=== PATIENT | female | born 1935 | race Caucasian/White ===

== ENCOUNTER 2016-12-05 07:44 | Day surgery (SDC) | payer MEDICARE, BC ==
[2016-11-30 15:04] VITALS: BMI 31.4
[~2016-12-05 07:44] MED LIST: DEXAMETHASONE SOD PHOSPHATE 10 MG/ML 1 ML VIAL IV ONE; HYDROmorphone 1 MG/ML 1 ML SYRINGE IVP PRN; LACTATED RINGERS 1,000 ML IV SCH; ONDANSETRON 4 MG/2 ML VIAL IVP ONE; ceFAZolin 1,000 MG in DEXTROSE/WATER 1 50ML.BAG IV ONE
[2016-12-05 10:18] VITALS: TEMP 97
[2016-12-05] MEDS ORDERED: PROPOFOL 10 MG/ML 20 ML VIAL IV ONE (10:35)
[2016-12-05] MEDS ORDERED: LIDOCAINE 1%/EPI 1:200,000 MPF 10 ML VIAL SQ ONE ×2 (11:06)
[2016-12-05 11:17] LABS: INR 2.1 (<1.2); Prothrombin Time 20.2 sec (9.0-12.0)
[2016-12-05] MEDS ORDERED: BACITRACIN 500 UNIT/GM OINT 28.4 GM TUBE TOPICAL ONE (11:38)
--- NOTE | 2016-12-05 12:06 | P.OP ---
Date of Procedure: 12/05/16 Preoperative Diagnosis: Right hinduism skin lesion Postoperative Diagnosis: Same Procedure(s) Performed: Excision right temporal skin lesion-4.2 x 3.5 cm Full-thickness skin graft reconstruction 4.2 x 3.5 cm defect size with complex closure of skin graft donor site Anesthesia: MAC Surgeon: Scar Jimenes Estimated Blood Loss (ml): 5 Pathology: other (Right hinduism skin lesion) Condition: stable Disposition: PACU Indications for Procedure: This is an 80-year-old white female has been enlarging right hinduism skin lesion over the last 7 months. Operative Findings: Large approximately 3.3 cm diameter right temporal skin lesion erythematous raised and firm but mobile from the underlying deep tissues Description of Procedure: The patient was brought in the operative suite and placed in a supine position. The patient underwent induction of IV sedation after appropriate monitors were placed by the cocoa milling machine operator. The patient was prepped and draped in usual aseptic fashion including right lower neck for potential graft. 2% lidocaine with 1-100,000 epinephrine was infused cutaneously and field block fashion at the right temporal and right lower neck sites. The skin lesion from the right hinduism was then excised grossly entirely down to the subcutaneous fat layer. Care was taken not to approach the depth of the facial nerve which was avoided. The lesion was excised grossly entirely. Hemostasis gained with electrocautery. Edges of the wound undermined with good hemostasis noted. A skin graft was then harvested from the right supraclavicular area down to the subcutaneous fat. The graft was defatted and cut to the appropriate shape and size of the defect. The donor site was closed in the deep and superficial subcutaneous layers with inverted interrupted 4-0 Vicryl suture and skin closed with running locking 4-0 Vicryl suture after wide undermining. Good hemostasis was noted. Bacitracin and sterile dressing were placed. Graft was then sutured circumferentially with simple interrupted 5-0 Vicryl sutures left long and a bolster consisting of Adaptic covering cottonball impregnated with bacitracin ointment was then tied down over the graft. The patient was then allowed to emerge from anesthesia having tolerated procedure well and was transferred to postop recovery area in satisfactory condition.
[2016-12-05 13:14] VITALS: RESP 20
[2016-12-05 13:51] VITALS: BP 129/72; PULSE 69
== END 2016-12-05 14:35 | disposition home or self-care (01) ==
LOC: OR 07:44
PROVIDERS: ATTEND Otolaryngology
DX: C44.329 Squamous cell carcinoma of skin of other parts of face (principal); L57.8 Other skin changes due to chronic exposure to nonionizing radiation; I13.10 Hypertensive heart and chronic kidney disease without heart failure, with stage 1 through stage 4 chronic kidney disease, or unspecified chronic kidney disease; N18.9 Chronic kidney disease, unspecified; M19.90 Unspecified osteoarthritis, unspecified site; H26.9 Unspecified cataract; H40.9 Unspecified glaucoma; M10.9 Gout, unspecified; E03.9 Hypothyroidism, unspecified; I25.10 Atherosclerotic heart disease of native coronary artery without angina pectoris; I49.9 Cardiac arrhythmia, unspecified; F03.90 Unspecified dementia, unspecified severity, without behavioral disturbance, psychotic disturbance, mood disturbance, and anxiety; Z86.73 Personal history of transient ischemic attack (TIA), and cerebral infarction without residual deficits; Z98.51 Tubal ligation status; Z79.01 Long term (current) use of anticoagulants; Z79.899 Other long term (current) drug therapy; Z88.1 Allergy status to other antibiotic agents; Z88.2 Allergy status to sulfonamides; Z91.09 Other allergy status, other than to drugs and biological substances; Z88.8 Allergy status to other drugs, medicaments and biological substances; Z87.891 Personal history of nicotine dependence
CPT/HCPCS: 88305; 85610; 11646; 15240; J1100; J2405; J0690; J2704

== ENCOUNTER 2018-02-08 12:15 | Inpatient (IN) | payer MEDICARE, BC ==
[2018-02-08] MEDS ORDERED: SODIUM CHLORIDE 0.9% 1,000 ML IV STA (12:37)
[2018-02-08] MEDS ORDERED: SODIUM CHLORIDE 0.9% 500 ML 500 ML IV STA (12:37)
--- NOTE | 2018-02-08 12:44 | ED ---
Neuro HPI - General Chief Complaint: Neuro Symptoms/Deficit Stated Complaint: stroke Time Seen by Provider: 02/08/18 12:25 Source: family, RN notes reviewed Mode of arrival: wheelchair Limitations: no limitations - History of Present Illness Is the patient presenting with stroke symptoms?: Yes Last Known Well Date: 02/06/18 Initial Comments: This is a 82-year-old female history of CVA in 2006 who apparently had the onset night which is 2 nights ago of left-sided paralysis just gotten somewhat better per family since that time she had decreased urine output however she does not like going to physicians refused medical care until she was brought in today by family. No reports of any trauma fevers chills nausea vomiting sweats or other symptoms. She does have transient aphasia which is chronic since last stroke. No other modifying factors. Formation was from family members - Related Data Home Medications: Home Medications Medication Instructions Recorded Confirmed Allopurinol [Zyloprim] 300 mg PO DAILY 01/26/14 02/08/18 Levothyroxine Sodium [Synthroid] 100 mcg PO DAILY 01/26/14 02/08/18 Atenolol [Tenormin] 50 mg PO HS 11/30/16 02/08/18 Cholecalciferol (Vitamin D3) 2,000 unit PO DAILY 11/30/16 02/08/18 [Vitamin D3] QUEtiapine [SEROquel] 100 mg PO 2100 11/30/16 02/08/18 Warfarin [Coumadin] 1 mg PO Q48H 11/30/16 02/08/18 Warfarin [Coumadin] 2 mg PO Q48H 11/30/16 02/08/18 Allergies/Adverse Reactions: Allergies Allergy/AdvReac Type Severity Reaction Status Date / Time Sulfa (Sulfonamide Allergy Unknown Verified 02/08/18 12:57 Antibiotics) Review of Systems ROS Statement: Those systems with pertinent positive or pertinent negative responses have been documented in the HPI. ROS Other: All systems not noted in ROS Statement are negative. General Exam - General Exam Comments Initial Comments: Is a well-developed well-nourished lethargic female who does seem to follow some commands Limitations: no limitations General appearance: lethargic Head exam: Present: atraumatic, normocephalic, normal inspection Eye exam: Present: normal appearance, PERRL, EOMI. Absent: scleral icterus, conjunctival injection, periorbital swelling ENT exam: Present: mucous membranes dry Neck exam: Present: normal inspection. Absent: tenderness, meningismus, lymphadenopathy Respiratory exam: Present: normal lung sounds bilaterally. Absent: respiratory distress, wheezes, rales, rhonchi, stridor Cardiovascular Exam: Present: regular rate, normal rhythm, normal heart sounds. Absent: systolic murmur, diastolic murmur, rubs, gallop, clicks GI/Abdominal exam: Present: soft, normal bowel sounds. Absent: distended, tenderness, guarding, rebound, rigid Extremities exam: Present: normal inspection, full ROM, normal capillary refill. Absent: tenderness, pedal edema, joint swelling, calf tenderness Back exam: Present: normal inspection Neurological exam: Present: alert, altered, CN II-XII intact, motor sensory deficit (Left upper lower extremity phill- plegia) Psychiatric exam: Present: normal affect, normal mood Skin exam: Present: warm, dry, intact, normal color. Absent: rash Stroke MDM - Lab Data Result diagrams: 02/08/18 12:33 02/08/18 12:33 Lab Results 02/08/18 02/08/18 02/08/18 Range/Units 12:33 12:33 12:33 WBC 15.3 H (3.8-10.6) k/uL RBC 4.57 (3.80-5.40) m/uL Hgb 14.6 (11.4-16.0) gm/dL Hct 43.9 (34.0-46.0) % MCV 96.2 (80.0-100.0) fL MCH 32.1 (25.0-35.0) pg MCHC 33.3 (31.0-37.0) g/dL RDW 14.5 (11.5-15.5) % Plt Count 211 (150-450) k/uL Neutrophils % 85 % Lymphocytes % 8 % Monocytes % 5 % Eosinophils % 1 % Basophils % 0 % Neutrophils # 13.0 H (1.3-7.7) k/uL Lymphocytes # 1.3 (1.0-4.8) k/uL Monocytes # 0.8 (0-1.0) k/uL Eosinophils # 0.1 (0-0.7) k/uL Basophils # 0.1 (0-0.2) k/uL PT (9.0-12.0) sec INR (<1.2) APTT (22.0-30.0) sec Sodium 139 (137-145) mmol/L Potassium 5.0 (3.5-5.1) mmol/L Chloride 105 (98-107) mmol/L Carbon Dioxide 21 L (22-30) mmol/L Anion Gap 13 mmol/L BUN 23 H (7-17) mg/dL Creatinine 1.08 H (0.52-1.04) mg/dL Est GFR (CKD-EPI)AfAm 55 (>60 ml/min/1.73 sqM) Est GFR (CKD-EPI)NonAf 47 (>60 ml/min/1.73 sqM) Glucose 192 H (74-99) mg/dL Calcium 10.0 (8.4-10.2) mg/dL Total Bilirubin 3.2 H (0.2-1.3) mg/dL AST 53 H (14-36) U/L ALT 31 (9-52) U/L Alkaline Phosphatase 114 (38-126) U/L Total Creatine Kinase 654 H (30-135) U/L CK-MB (CK-2) 4.4 H (0.0-2.4) ng/mL CK-MB (CK-2) Rel Index 0.7 Troponin I 0.037 H* (0.000-0.034) ng/mL Total Protein 8.0 (6.3-8.2) g/dL Albumin 4.0 (3.5-5.0) g/dL 02/08/18 Range/Units 12:33 WBC (3.8-10.6) k/uL RBC (3.80-5.40) m/uL Hgb (11.4-16.0) gm/dL Hct (34.0-46.0) % MCV (80.0-100.0) fL MCH (25.0-35.0) pg MCHC (31.0-37.0) g/dL RDW (11.5-15.5) % Plt Count (150-450) k/uL Neutrophils % % Lymphocytes % % Monocytes % % Eosinophils % % Basophils % % Neutrophils # (1.3-7.7) k/uL Lymphocytes # (1.0-4.8) k/uL Monocytes # (0-1.0) k/uL Eosinophils # (0-0.7) k/uL Basophils # (0-0.2) k/uL PT 18.2 H (9.0-12.0) sec INR 2.0 H (<1.2) APTT 29.3 (22.0-30.0) sec Sodium (137-145) mmol/L Potassium (3.5-5.1) mmol/L Chloride (98-107) mmol/L Carbon Dioxide (22-30) mmol/L Anion Gap mmol/L BUN (7-17) mg/dL Creatinine (0.52-1.04) mg/dL Est GFR (CKD-EPI)AfAm (>60 ml/min/1.73 sqM) Est GFR (CKD-EPI)NonAf (>60 ml/min/1.73 sqM) Glucose (74-99) mg/dL Calcium (8.4-10.2) mg/dL Total Bilirubin (0.2-1.3) mg/dL AST (14-36) U/L ALT (9-52) U/L Alkaline Phosphatase (38-126) U/L Total Creatine Kinase (30-135) U/L CK-MB (CK-2) (0.0-2.4) ng/mL CK-MB (CK-2) Rel Index Troponin I (0.000-0.034) ng/mL Total Protein (6.3-8.2) g/dL Albumin (3.5-5.0) g/dL - NIH Stroke Scale 1a. Level of Consciousness: (1) not alert, arousable 1b. LOC Questions: (2) answers no questions correctly 1c. LOC Commands: (2) performs no tasks correctly 2. Best Gaze: (0) normal 3. Visual: (0) no visual loss 4. Facial Palsy: (1) minor paralysis 5a. Motor Arm Left: (4) no movement 5b. Motor Arm Right: (0) no drift 6a. Motor Leg Left: (4) no movement 6b. Motor Leg Right: (0) no drift 7. Limb Ataxia: (0) absent 8. Sensory: (0) normal 9. Best Language: (2) severe aphasia 11. Extinction/Inattention: (0) no abnormality - Thrombolytic Inclusion/Exclusion Thrombolytic Exclusion Criteria: Onset of Symptoms Unknown, Symptom Onset > 3 Hours - Medical Decision Making Reevaluation patient reveals no change did discuss findings with family members patient be admitted for evaluation by neurology. - Radiology Data Radiology results: report reviewed, image reviewed (I did review the imaging and report no acute findings.) - EKG Data -: EKG Interpreted by Me (Atrial fibrillation nonspecific ST configuration rate was 88 QRS 86 QT [facility]) Past Medical History Past Medical History: Atrial Fibrillation, Cancer, Chest Pain / Angina, CVA/TIA , Dementia, Eye Disorder, GI Bleed, Hyperlipidemia, Hypertension, Memory Impairment, Osteoarthritis (OA), Thyroid Disorder Additional Past Medical History / Comment(s): hx GI bleeding, vascular dementia , macular degeneration, gout, .head injury 2012, glaucoma, sinus problems, diverticulitis, wheelchair, skin cancer History of Any Multi-Drug Resistant Organisms: None Reported Past Surgical History: Adenoidectomy, Appendectomy, Breast Surgery, Cholecystectomy, Heart Catheterization With Stent, Joint Replacement, Tonsillectomy Additional Past Surgical History / Comment(s): rt cataract,, left total knee arthroplasty, cath with 2 stents , SINUS SX, thyroidectomy, surgery, lower GI bleed 08/2014-fistula, rt hip replacement, Past Anesthesia/Blood Transfusion Reactions: Previous Problems w/ Anesthesia, Motion Sickness Additional Past Anesthesia/Blood Transfusion Reaction / Comment(s): gets very aggitated, rage, angry-needed straight jackert per son, in past with anesthesia. was confused for long time after Date of Last Stent Placement:: unknown Past Psychological History: Depression Smoking Status: Never smoker - Past Family History Mother Family Medical History: Coronary Artery Disease (CAD) Additional Family Medical History / Comment(s): LIFELONG SMOKER Father Family Medical History: COPD, Coronary Artery Disease (CAD), Liver Disease Additional Family Medical History / Comment(s): LIFELONG SMOKER LIVED TO AGE 84 Sister(s) Family Medical History: Cancer Son(s) Family Medical History: No Reported History Daughter(s) Family Medical History: No Reported History Course Vital Signs 02/08/18 12:16 Temperature 98.1 F Pulse Rate 89 Respiratory 18 Rate Blood Pressure 186/135 O2 Sat by Pulse 94 L Oximetry - Reevaluation(s) Reevaluation #1: 02/08/18 14:10 Reevaluation the patient after return from CAT scan shows no change in her status. Disposition Clinical Impression: Cerebrovascular accident, Dehydration, Acute alteration in mental status, Hyperbilirubinemia, Elevated troponin Disposition: ADMITTED IP TO THIS HOSP Condition: Stable Referrals: Mikey Ferreira DO [Primary Care Provider] - 1-2 days
[2018-02-08 13:08] LABS: Basophils # (A) 0.1 k/uL (0-0.2); Basophils % (A) 0 %; Eosinophils # (A) 0.1 k/uL (0-0.7); Eosinophils % (A) 1 %; HCT 43.9 % (34.0-46.0); HGB 14.6 gm/dL (11.4-16.0); Lymphocytes # (A) 1.3 k/uL (1.0-4.8); Lymphocytes % (A) 8 %; MCH 32.1 pg (25.0-35.0); MCHC 33.3 g/dL (31.0-37.0); MCV 96.2 fL (80.0-100.0); Mean Platelet Volume 7.9; Monocytes # (A) 0.8 k/uL (0-1.0); Monocytes % (A) 5 %; Neutrophils % (A) 85 %; Platelet Count 211 k/uL (150-450); RBC 4.57 m/uL (3.80-5.40); RDW 14.5 % (11.5-15.5); WBC 15.3 k/uL (3.8-10.6)
[2018-02-08 13:18] LABS: Total Bilirubin 3.2 mg/dL (0.2-1.3)
--- NOTE | 2018-02-08 13:28 | CT ---
EXAMINATION TYPE: CT brain wo con DATE OF EXAM: 02/08/2018 COMPARISON: Previous study dated 03/03/2015. HISTORY: Stroke CT DLP: 1375.4 mGycm Automated exposure control for dose reduction was used. FINDINGS: There are generalized changes of sulcal prominence and ventriculomegaly, compatible with atrophic alina nge. There is diffuse periventricular white matter lucency compatible with small vessel ischemic dougherty ge. There are small lacunar infarcts on the right in the mello radiata and also in the internal caps ule. There is a questionable lacunar infarct in the posterior limb of the internal capsule on the lef t. There is no mass effect, midline shift or intracranial blood. There is mucoperiosteal thickening involving the ethmoidal air cells and sphenoid air cells and also the left frontal sinus. There is an air-fluid level in the left maxillary sinus. The mastoids are ranjan ar. The bony calvarium is intact. IMPRESSION: 1. NO ACUTE INTRACRANIAL ABNORMALITY. 2. MODERATE DEGENERATIVE CHANGE. 3. MULTIPLE LACUNAR INFARCTS. 4. ACUTE ON CHRONIC SINUS MUCOSAL DISEASE.
--- NOTE | 2018-02-08 13:29 | XR ---
EXAMINATION TYPE: XR chest 2V DATE OF EXAM: 02/08/2018 HISTORY: altered mental status. REFERENCE: Previous study dated 03/03/2015. FINDINGS: The heart is enlarged. There is vascular congestion with mild interstitial change. Pleural spaces are clear. IMPRESSION: MILD CHANGES OF CONGESTIVE HEART FAILURE.
[2018-02-08 13:34] LABS: Creatine Kinase MB 4.4 ng/mL (0.0-2.4)
[2018-02-08 13:37] LABS: Troponin I 0.037 ng/mL (0.000-0.034)
[2018-02-08 13:58] LABS: Partial Thromboplastin Time 29.3 sec (22.0-30.0); Prothrombin Time 18.2 sec (9.0-12.0)
[2018-02-08] MEDS ORDERED: ASPIRIN 325 MG TAB PO STA (14:17)
[2018-02-08] MEDS ORDERED: METOPROLOL TARTRATE 5 MG/5 ML VIAL IVP STA (14:29)
[2018-02-08] MEDS ORDERED: ASPIRIN 300 MG SUPP RECTAL STA (14:42)
[2018-02-08 14:43] LABS: Appearance,Urine Clear (Clear); Bacteria,Urine Rare /hpf; Bilirubin,Urine 1+ (Negative); Blood,Urine Moderate (Negative); Color,Urine Yellow; Glucose,Urine (UA) 1+ (Negative); Hyaline Casts,Urine 2 /lpf (0-2); Ketones,Urine 1+ (Negative); Leukocyte Esterase,Urine Negative (Negative); Nitrite,Urine Negative (Negative); Protein,Urine 4+ (Negative); RBC,Urine 15 /hpf (0-5); Specific Gravity,Urine 1.025 (1.001-1.035); Squamous Epithelial Cell,Urine 2 /hpf (0-4); WBC,Urine 3 /hpf (0-5)
[2018-02-08] MEDS: SODIUM CHLORIDE 0.9% 1,000 ML IV SCH (15:22)
[2018-02-08] MEDS ORDERED: WARFARIN 2 MG TAB PO SCH (18:00)
[2018-02-08] MEDS: FAMOTIDINE 20 MG/2 ML VIAL IV SCH (20:34)
[2018-02-08] MEDS: QUEtiapine 100 MG TAB PO SCH (20:34)
[2018-02-08] MEDS: ATENOLOL 50 MG TAB PO SCH (20:34)
[2018-02-09 01:18] LABS: Glucose,Whole Blood 138 mg/dL (75-99)
[2018-02-09] MEDS: SODIUM CHLORIDE 0.9% 1,000 ML IV SCH ×3 (03:09→21:36)
[2018-02-09 06:17] LABS: Glucose,Whole Blood 131 mg/dL (75-99)
[2018-02-09] MEDS: LEVOTHYROXINE 100 MCG TAB PO SCH (06:18)
[2018-02-09 07:24] LABS: INR 2.2 (<1.2); Prothrombin Time 19.8 sec (9.0-12.0)
[2018-02-09] MEDS: ASPIRIN 325 MG TAB PO SCH (08:31)
[2018-02-09] MEDS: ALLOPURINOL 300 MG TAB PO SCH (08:31)
[2018-02-09] MEDS: CHOLECALCIFEROL 1,000 UNIT TAB PO SCH (08:31)
[2018-02-09] MEDS: CLOPIDOGREL 75 MG TAB PO SCH (08:31)
[2018-02-09] MEDS: FAMOTIDINE 20 MG/2 ML VIAL IV SCH ×2 (08:31→21:20)
[2018-02-09 10:31] LABS: Cholesterol 182 mg/dL (<200); HDL Cholesterol 31 mg/dL (40-60); LDL Cholesterol,Calculated 136 mg/dL (0-99); Triglycerides 74 mg/dL (<150)
[2018-02-09 11:45] LABS: Glucose,Whole Blood 147 mg/dL (75-99)
--- NOTE | 2018-02-09 15:44 | P.CNNES ---
History of Present Illness Consult date: 02/09/18 Requesting physician: Moshe Mccray Reason for Consult: CVA History of Present Illness: Patient is an 82-year-old female who is being evaluated by the neurology service on 02/09/2018 per the request of Dr. Mccray for CVA. Patient has history of CVA back in 2006. Patient has history of atrial fibrillation on warfarin in the home setting. Patient is wheelchair bound at home reportedly due to knee etiology. Family reports patient had onset of left-sided paralysis and decreased mentation since which was 2 days prior to coming to [facility]. Patient has significant left-sided facial droop. Patient has chronic transient aphasia which has been since last stroke. CT of the brain shows no acute intracranial abnormality. CT of the brain does show multiple lacunar infarcts. There are small lacunar infarcts on the right in the mello radiata and also in the internal capsule. There is a questionable lacunar infarct in the posterior limb of the internal capsule on the left. Vital signs at admission showed temperature 98.1, pulse 89, respiratory rate 18 , blood pressure 186/135, and oxygen saturation 94% on room air. Labs on admission included INR of 2.0, WBC is 15.3, carbon dioxide 21, BUN 23, creatinine 1.08, glucose 192, AST 53, and total creatinine kinase 654. CK-MB elevated at 4.4 with elevated troponin. UA revealed urinary tract infection. Chest x-ray shows mild changes of congestive heart failure. EKG shows atrial fibrillation with controlled rate of 88. At the time of my evaluation, patient is restless in bed with family at the bedside. Patient does not appear to be in any acute distress. Review of Systems REVIEW OF SYSTEMS: Otherwise unremarkable and noncontributory. Past Medical History Past Medical History: Atrial Fibrillation, Cancer, Chest Pain / Angina, CVA/TIA , Dementia, Eye Disorder, GI Bleed, Hyperlipidemia, Hypertension, Memory Impairment, Osteoarthritis (OA), Thyroid Disorder Additional Past Medical History / Comment(s): hx GI bleeding, vascular dementia , macular degeneration, gout, .head injury 2012, glaucoma, sinus problems, diverticulitis, wheelchair, skin cancer History of Any Multi-Drug Resistant Organisms: None Reported Past Surgical History: Adenoidectomy, Appendectomy, Breast Surgery, Cholecystectomy, Heart Catheterization With Stent, Joint Replacement, Tonsillectomy Additional Past Surgical History / Comment(s): rt cataract,, left total knee arthroplasty, cath with 2 stents , SINUS SX, thyroidectomy, surgery, lower GI bleed 08/2014-fistula, rt hip replacement, Past Anesthesia/Blood Transfusion Reactions: Previous Problems w/ Anesthesia, Motion Sickness Additional Past Anesthesia/Blood Transfusion Reaction / Comment(s): gets very aggitated, rage, angry-needed straight jackert per son, in past with anesthesia. 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 PT RECOGNIZERS HIM. Smoking Status: Never smoker Past Alcohol Use History: None Reported Past Drug Use History: None Reported Additional Drug Use History / Comment(s): Patient parents smoked. Patient still smokes. - Past Family History Mother Family Medical History: Coronary Artery Disease (CAD) Additional Family Medical History / Comment(s): LIFELONG SMOKER Father Family Medical History: COPD, Coronary Artery Disease (CAD), Liver Disease Additional Family Medical History / Comment(s): LIFELONG SMOKER LIVED TO AGE 84 Sister(s) Family Medical History: Cancer Son(s) Family Medical History: No Reported History Daughter(s) Family Medical History: No Reported History Medications and Allergies Home Medications Medication Instructions Recorded Confirmed Type Allopurinol [Zyloprim] 300 mg PO DAILY 01/26/14 02/08/18 History Levothyroxine Sodium [Synthroid] 100 mcg PO DAILY 01/26/14 02/08/18 History Atenolol [Tenormin] 50 mg PO HS 11/30/16 02/08/18 History Cholecalciferol (Vitamin D3) 2,000 unit PO DAILY 11/30/16 02/08/18 History [Vitamin D3] QUEtiapine [SEROquel] 100 mg PO 2100 11/30/16 02/08/18 History Warfarin [Coumadin] 1 mg PO Q48H 11/30/16 02/08/18 History Warfarin [Coumadin] 2 mg PO Q48H 11/30/16 02/08/18 History Allergies Allergy/AdvReac Type Severity Reaction Status Date / Time Sulfa (Sulfonamide Allergy Unknown Verified 02/08/18 12:57 Antibiotics) Physical Examination - Vital Signs Vital Signs: Vital Signs Temp Pulse Pulse Pulse Resp BP BP 02/09/18 15:08 97.5 F L 101 H 18 176/121 02/09/18 11:36 97.2 F L 74 20 160/95 02/09/18 08:00 97.4 F L 90 20 163/102 02/09/18 04:00 97.0 F L 70 18 02/09/18 00:00 97.7 F 74 18 02/08/18 20:00 98 18 02/08/18 19:42 98.6 F 98 02/08/18 18:00 85 20 167/94 02/08/18 17:30 81 21 167/94 02/08/18 17:00 85 23 168/90 02/08/18 16:30 71 18 175/94 02/08/18 16:00 66 17 150/97 02/08/18 15:30 85 20 152/104 BP Pulse Ox 02/09/18 15:08 98 02/09/18 11:36 98 02/09/18 08:00 92 L 02/09/18 04:00 138/87 94 L 02/09/18 00:00 143/85 96 18 20:00 02/08/18 19:42 187/89 93 L 02/08/18 18:00 96 02/08/18 17:30 96 02/08/18 17:00 95 02/08/18 16:30 99 02/08/18 16:00 94 L 02/08/18 15:30 98 Intake and Output 02/09/18 02/09/18 02/09/18 06:59 14:59 22:59 Intake Total 200 Output Total 300 Balance -300 200 Intake: Intake, IV Titration 200 Amount Sodium Chloride 0.9% 1, 200 000 ml @ 100 mls/hr IV . [facility] Rx#:[id number] Output: Urine 300 Other: Voiding Method Indwelling Catheter Indwelling Catheter Weight 84.5 kg PHYSICAL EXAM: GENERAL APPEARANCE: Patient is a well-developed, female who appears to be in no acute distress. HEENT: Normocephalic, atraumatic, left facial asymmetry is seen. Neck is supple with no masses felt. CARDIOVASCULAR: Regular rate and rhythm. ABDOMEN: Nontender, nondistended. EXTREMITIES: Show no edema or clubbing. NEUROLOGICAL EXAM: Patient is awake, alert, but is not following commands. A meaningful neurological exam could not be performed due to patient inability to participate. Patient has purposeful movement of the right upper and lower extremity. Left upper and lower extremity show no purposeful movement. Left upper extremity is flaccid. Patient has significant left-sided facial droop. She remains nothing by mouth at this time. Speech is garbled as patient is dysarthric. Sensory exam could not be performed due to patient inability to comprehend command. No tremors or seizure-like activity noted. Results - Laboratory Findings CBC and BMP: 02/08/18 12:33 02/08/18 12:33 Abnormal Lab Findings: Abnormal Labs 02/08/18 02/08/18 02/08/18 12:33 12:33 12:33 WBC 15.3 H Neutrophils # 13.0 H PT INR Carbon Dioxide 21 L BUN 23 H Creatinine 1.08 H Glucose 192 H POC Glucose (mg/dL) Total Bilirubin 3.2 H AST 53 H Total Creatine Kinase 654 H CK-MB (CK-2) 4.4 H Troponin I 0.037 H* LDL Cholesterol, Calc HDL Cholesterol Urine Protein Urine Glucose (UA) Urine Ketones Urine Blood Urine Bilirubin Urine RBC Urine Bacteria 02/08/18 02/08/18 02/08/18 12:33 13:50 18:54 WBC Neutrophils # PT 18.2 H INR 2.0 H Carbon Dioxide BUN Creatinine Glucose POC Glucose (mg/dL) Total Bilirubin AST Total Creatine Kinase CK-MB (CK-2) Troponin I 0.037 H* LDL Cholesterol, Calc HDL Cholesterol Urine Protein 4+ H Urine Glucose (UA) 1+ H Urine Ketones 1+ H Urine Blood Moderate H Urine Bilirubin 1+ H Urine RBC 15 H Urine Bacteria Rare H 02/09/18 02/09/18 02/09/18 01:15 06:15 06:18 WBC Neutrophils # PT INR Carbon Dioxide BUN Creatinine Glucose POC Glucose (mg/dL) 138 H 131 H Total Bilirubin AST Total Creatine Kinase CK-MB (CK-2) Troponin I LDL Cholesterol, Calc 136 H HDL Cholesterol 31 L Urine Protein Urine Glucose (UA) Urine Ketones Urine Blood Urine Bilirubin Urine RBC Urine Bacteria 02/09/18 02/09/18 06:18 11:42 WBC Neutrophils # PT 19.8 H INR 2.2 H Carbon Dioxide BUN Creatinine Glucose POC Glucose (mg/dL) 147 H Total Bilirubin AST Total Creatine Kinase CK-MB (CK-2) Troponin I LDL Cholesterol, Calc HDL Cholesterol Urine Protein Urine Glucose (UA) Urine Ketones Urine Blood Urine Bilirubin Urine RBC Urine Bacteria Assessment and Plan Plan: Impression: 1. 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 History of CVA in 2006 3. History of atrial fibrillation on warfarin 4. Dementia 5. Hypertension 6. Osteoarthritis 7. Debility Recommendation: It does appear patient had a cerebrovascular accident likely involving right MCA. Patient has significant left hemiparesis with significant left facial droop. Patient has dysphagia. She remains nothing by mouth. I will order an MRI/MRA of the brain, EEG, fasting lipid panel and serum homocysteine level. CT of the brain showed no acute intracranial abnormality but did show multiple lacunar infarcts. I recommend a cardiology consult due to multiple lacunar infarcts seen on brain CT, history of atrial fibrillation as well as elevated troponin. Patient's INR was therapeutic at 2.0 on admission. It is not clear what INR was at the onset of these symptoms as this happened days ago. I recommend continuing anticoagulation unless cardiology plans any intervention such as EDI. I recommend adjustment of medication for elevated blood pressure. I recommend physical therapy, speech therapy and occupational therapy to evaluate and treat. Continue neurological checks. I will continue to follow with you. Further recommendations to follow. Thank you for allowing me to participate in the care of your patient. Feel free to call with any questions or concerns. I performed an examination of the patient and discussed the management with the AIRPORT REPRESENTATIVE. I have reviewed the AIRPORT REPRESENTATIVE notes and agree with the findings and plan of care.
[2018-02-09 16:56] LABS: Glucose,Whole Blood 126 mg/dL (75-99)
[2018-02-09] MEDS ORDERED: WARFARIN 1 MG TAB PO SCH (18:00)
[2018-02-09 20:33] LABS: Glucose,Whole Blood 134 mg/dL (75-99)
[2018-02-09] MEDS ORDERED: ALPRAZolam 1 MG TAB PO STA (21:13)
[2018-02-09] MEDS: QUEtiapine 100 MG TAB PO SCH (21:19)
[2018-02-09] MEDS: METOPROLOL TARTRATE 5 MG/5 ML VIAL IVP PRN (21:20)
--- NOTE | 2018-02-09 22:21 | P.HPIM ---
History of Present Illness H&P Date: 02/09/18 Chief Complaint: Left-sided weakness with altered mental status This is a 52 years old female with past medical history significant for stroke in 2017 presents to the emergency department with new onset weakness and left- sided paralysis. Patient is nonverbal and had historian as her son who lives at home with her along with her . Son reported that his mother started having worsening weakness on evening and Saturday morning she developed left sided paralysis but the son attributed that the paralysis due to recent 2 doses of Zithromax as he studied side effects for Zithromax over the Internet and found out that it can cause stroke similar symptoms and decided to keep his mother at home on Saturday patient continued to decline and he decided to bring her into the hospital but she was difficult to handle as he did not call EMS and decided to bring her to the hospital and his own car in the emergency patient was nonverbal and does not follow command have left-sided weakness with left facial droop and was out of window for TPA given the late onset of symptoms. Patient in the emergency department received CT scan of the head which showed multiple lacunar infarcts admitted to the floor with therapeutic INR and received appropriate therapy Review of Systems All 14 systems were unable to review with the patient's except for information above from the primary caregiver Past Medical History Past Medical History: Atrial Fibrillation, Cancer, Chest Pain / Angina, CVA/TIA , Dementia, Eye Disorder, GI Bleed, Hyperlipidemia, Hypertension, Memory Impairment, Osteoarthritis (OA), Thyroid Disorder Additional Past Medical History / Comment(s): hx GI bleeding, vascular dementia , macular degeneration, gout, .head injury 2012, glaucoma, sinus problems, diverticulitis, wheelchair, skin cancer History of Any Multi-Drug Resistant Organisms: None Reported Past Surgical History: Adenoidectomy, Appendectomy, Breast Surgery, Cholecystectomy, Heart Catheterization With Stent, Joint Replacement, Tonsillectomy Additional Past Surgical History / Comment(s): rt cataract,, left total knee arthroplasty, cath with 2 stents , SINUS SX, thyroidectomy, surgery, lower GI bleed 08/2014-fistula, rt hip replacement, Past Anesthesia/Blood Transfusion Reactions: Previous Problems w/ Anesthesia, Motion Sickness Additional Past Anesthesia/Blood Transfusion Reaction / Comment(s): gets very aggitated, rage, angry-needed straight jackert per son, in past with anesthesia. 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 PT RECOGNIZERS HIM. Smoking Status: Never smoker Past Alcohol Use History: None Reported Past Drug Use History: None Reported Additional Drug Use History / Comment(s): Patient parents smoked. Patient still smokes. - Past Family History Mother Family Medical History: Coronary Artery Disease (CAD) Additional Family Medical History / Comment(s): [employer] Father Family Medical History: COPD, Coronary Artery Disease (CAD), Liver Disease Additional Family Medical History / Comment(s): [employer] S[employer] LIVED TO AGE 84 Sister(s) Family Medical History: Cancer Son(s) Family Medical History: No Reported History Daughter(s) Family Medical History: No Reported History Medications and Allergies Home Medications Medication Instructions Recorded Confirmed Type Allopurinol [Zyloprim] 300 mg PO DAILY 01/26/14 02/08/18 History Levothyroxine Sodium [Synthroid] 100 mcg PO DAILY 01/26/14 02/08/18 History Atenolol [Tenormin] 50 mg PO HS 11/30/16 02/08/18 History Cholecalciferol (Vitamin D3) 2,000 unit PO DAILY 11/30/16 02/08/18 History [Vitamin D3] QUEtiapine [SEROquel] 100 mg PO 2100 11/30/16 02/08/18 History Warfarin [Coumadin] 1 mg PO Q48H 11/30/16 02/08/18 History Warfarin [Coumadin] 2 mg PO Q48H 11/30/16 02/08/18 History Allergies Allergy/AdvReac Type Severity Reaction Status Date / Time Sulfa (Sulfonamide Allergy Unknown Verified 02/08/18 12:57 Antibiotics) Physical Exam Vitals: Vital Signs Temp Pulse Resp BP BP Pulse Ox 02/09/18 20:00 98.1 F 98 19 192/108 94 L 02/09/18 15:08 97.5 F L 101 H 18 176/121 98 02/09/18 11:36 97.2 F L 74 20 160/95 98 02/09/18 08:00 97.4 F L 90 20 163/102 92 L 02/09/18 04:00 97.0 F L 70 18 138/87 94 L 02/09/18 00:00 97.7 F 74 18 143/85 96 Intake and Output 02/09/18 02/09/18 02/09/18 06:59 14:59 22:59 Intake Total 200 800 Output Total 300 220 Balance -300 200 580 Intake: Intake, IV Titration 200 800 Amount Sodium Chloride 0.9% 1, 200 800 000 ml @ 100 mls/hr IV . Q10H [facility] Rx#:[id number] Output: Urine 300 220 Other: Voiding Method Indwelling Catheter Indwelling Catheter Indwelling Catheter # Bowel Movements 0 Weight 84.5 kg HEENT atraumatic normocephalic PERRLA Neck supple no masses or thyromegaly Heart irregularly irregular normal S1 and S2 Lungs clear to auscultation bilaterally Abdomen soft no tenderness plus. Snow for quadrant Skin no new rash Neuro/psych patient is awake but does not follow commands mumbling warts moving lower extremity spontaneously positive for left upper extremity paralysis positive for significant left facial droop Results CBC & Chem 7: 02/08/18 12:33 02/08/18 12:33 Labs: Abnormal Lab Results - Last 24 Hours (Table) 02/09/18 02/09/18 02/09/18 Range/Units 01:15 06:15 06:18 PT (9.0-12.0) sec INR (<1.2) POC Glucose (mg/dL) 138 H 131 H (75-99) mg/dL LDL Cholesterol, Calc 136 H (0-99) mg/dL HDL Cholesterol 31 L (40-60) mg/dL 02/09/18 02/09/18 02/09/18 Range/Units 06:18 11:42 16:53 PT 19.8 H (9.0-12.0) sec INR 2.2 H (<1.2) POC Glucose (mg/dL) 147 H 126 H (75-99) mg/dL LDL Cholesterol, Calc (0-99) mg/dL HDL Cholesterol (40-60) mg/dL 02/09/18 Range/Units 20:31 PT (9.0-12.0) sec INR (<1.2) POC Glucose (mg/dL) 134 H (75-99) mg/dL LDL Cholesterol, Calc (0-99) mg/dL HDL Cholesterol (40-60) mg/dL Microbiology - Last 24 Hours (Table) 02/08/18 13:50 Urine Culture - Final Urine,Catheterized Thrombosis Risk Factor Assmnt - Choose All That Apply Each Factor Represents 1 point: Obesity (BMI >25) Each Risk Factor Represents 3 Points: Age 75 years or older Other congenital or acquired thrombophilia - If yes, enter type in comment: No Thrombosis Risk Factor Assessment Total Risk Factor Score: 4 Thrombosis Risk Factor Assessment Level: Moderate Risk Assessment and Plan Assessment: 1. Acute CVA likely in the MCA distribution with left sided weakness/paralysis left upper extremity worse than left lower extremity with significant facial droop. 2. Atrial fibrillation heart rate is controlled INR is therapeutic. 3. Hypertension. 4. Debility and deconditioning. 5. Dysphagia with increased risk of aspiration. 6. Hyperlipidemia. 7. History of dementia. Plan discussed with her son who still believe that his mother had side effects from Zithromax and stated that she used to be on Coumadin and advised to be on aspirin but he did not believe in aspirin and was not taking aspirin as her son instructed her to avoid it explained to the son at length that current stroke need treatment is more seriously and he needs to follow up with physicians recommendation regarding medication and close follow-up with her primary care physician outpatient. Meanwhile patient may benefit from 2-D echo with normal study and possibility for EDI in the future as patient had multiple lacunar stroke in the past. We'll continue with Coumadin and titrate for INR between 2 and 3 we will continue with aspirin and statin. We'll check on lipid panel hemoglobin A1c and TSH. We'll consult physical and echo patient with therapy and consider consulting physical medicine and rehabilitation based on the recommendation. Prognosis is guarded
[2018-02-09] MEDS: ATENOLOL 50 MG TAB PO SCH (22:47)
[2018-02-10 05:59] LABS: Glucose,Whole Blood 132 mg/dL (75-99)
[2018-02-10 06:42] LABS: INR 2.5 (<1.2); Prothrombin Time 22.1 sec (9.0-12.0)
[2018-02-10] MEDS: ASPIRIN 325 MG TAB PO SCH (09:33)
[2018-02-10] MEDS: ALLOPURINOL 300 MG TAB PO SCH (09:33)
[2018-02-10] MEDS: CLOPIDOGREL 75 MG TAB PO SCH (09:33)
[2018-02-10] MEDS: LEVOTHYROXINE 100 MCG TAB PO SCH (09:33)
[2018-02-10] MEDS: CHOLECALCIFEROL 1,000 UNIT TAB PO SCH (09:33)
[2018-02-10] MEDS: FAMOTIDINE 20 MG/2 ML VIAL IV SCH (09:47)
[2018-02-10] MEDS: METOPROLOL TARTRATE 5 MG/5 ML VIAL IVP PRN ×2 (09:47→16:48)
[2018-02-10] MEDS: SODIUM CHLORIDE 0.9% 1,000 ML IV SCH ×2 (09:47→16:43)
[2018-02-10 11:12] LABS: Glucose,Whole Blood 167 mg/dL (75-99)
[2018-02-10] MEDS ORDERED: diphenhydrAMINE 50 MG/ML 1 ML VIAL IVP PRN (12:43)
[2018-02-10] MEDS ORDERED: LISINOPRIL 10 MG TAB PO SCH (12:45)
[2018-02-10 12:57] LABS: Hemoglobin A1C 7.3 % (4.0-6.0)
[2018-02-10] MEDS ORDERED: ASPIRIN 300 MG SUPP RECTAL SCH (13:30)
--- NOTE | 2018-02-10 15:19 | P.PN ---
Subjective Progress Note Date: 02/10/18 This is a 52 years old female with past medical history significant for stroke in 2017 presents to the emergency department with new onset weakness and left- sided paralysis. Patient is nonverbal and had historian as her son who lives at home with her along with her . Son reported that his mother started having worsening weakness on evening and Saturday morning she developed left sided paralysis but the son attributed that the paralysis due to recent 2 doses of Zithromax as he studied side effects for Zithromax over the Internet and found out that it can cause stroke similar symptoms and decided to keep his mother at home on Saturday patient continued to decline and he decided to bring her into the hospital but she was difficult to handle as he did not call EMS and decided to bring her to the hospital and his own car in the emergency patient was nonverbal and does not follow command have left-sided weakness with left facial droop and was out of window for TPA given the late onset of symptoms. Patient in the emergency department received CT scan of the head which showed multiple lacunar infarcts admitted to the floor with therapeutic INR and received appropriate therapy 02/10: Patient is aphasic from previous stroke. Small amount of movement to left leg but no movement of left arm. Neurology has recommended MRA/MRI and EEG. Patient was not able to be still for MRI. Son has refused ativan and xanax as she gets the opposite effect desired. EDI requested. Cardiology is on consult. Jalloh in place. Patient needs swallow eval by speech. She did cough with spoon of water. She is usually wheelchair bound and can stand to pivot. We will add and IV Benadryl to help with sleep this evening. A1c is pending. Family states the patient is a DO NOT RESUSCITATE. Review Of Systems: unable to obtain due to mental status changes. Objective - Vital Signs Vital signs: Vital Signs Temp 97 F L 02/10/18 08:00 Pulse 93 02/10/18 08:00 Resp 18 02/10/18 08:00 BP 183/110 02/10/18 08:00 Pulse Ox 98 02/10/18 08:00 Intake & Output 02/09/18 02/10/18 02/10/18 18:59 06:59 18:59 Intake Total 1000 700 Output Total 220 525 Balance 780 175 Weight 84.3 kg Intake: Intake, IV Titration 1000 700 Amount Sodium Chloride 0.9% 1, 1000 700 000 ml @ 100 mls/hr IV . Q10H [facility] Rx#:[id number] Output: Urine 220 525 Other: Voiding Method Indwelling Catheter Indwelling Catheter Indwelling Catheter # Bowel Movements 0 0 - Exam General appearance: average body habitus, no acute distress - EENT Eyes: Reports EOMI, Reports PERRLA, Reports normal apperance, Denies photophobia , Denies scleral icterus ENT: Reports NA/AT, Reports normal oropharynx, Denies thrush, Denies tonsillar exudates Ears: bilateral: normal - Neck Neck: Reports normal ROM, Denies lymphadenopathy, Denies rigidity, Denies stridor, Denies thyromegaly Carotids: bilateral: upstroke delayed Thyroid: bilateral: normal size - Respiratory Respiratory: bilateral: diminished, negative: dullness, rales, rhonchi, wheezing , prolonged expiration, prolonged inspiration - Cardiovascular Rhythm: regularly irregular Heart sounds: normal: S1, S2 Abnormal Heart Sounds: Reports systolic murmur (3/6 in the right upper sternal border radiating to the base of the neck.), Denies rub, Denies click - Gastrointestinal General gastrointestinal: Reports decreased bowel sounds, Reports soft, Denies splenomegaly, Denies tenderness, Denies umbilical hernia, Denies ventral hernia - Integumentary Integumentary: Reports normal, Reports normal turgor, Denies rash, Denies ulcer - Neurologic Neurologic: CNII-XII intact - Musculoskeletal Musculoskeletal: Reports gait normal, Reports generalized weakness - Psychiatric Psychiatric: Denies A&O Denies appropriate affect, Denies intact judgment & insight, left arm weakness 0/5, left leg weakness, left facial droop. - Labs CBC & Chem 7: 02/08/18 12:33 02/08/18 12:33 Labs: Abnormal Lab Results - Last 24 Hours (Table) 02/09/18 02/09/18 02/09/18 Range/Units 11:42 16:53 20:31 PT (9.0-12.0) sec INR (<1.2) POC Glucose (mg/dL) 147 H 126 H 134 H (75-99) mg/dL 02/10/18 02/10/18 02/10/18 Range/Units 05:58 06:03 11:04 PT 22.1 H (9.0-12.0) sec INR 2.5 H (<1.2) POC Glucose (mg/dL) 132 H 167 H (75-99) mg/dL Microbiology - Last 24 Hours (Table) 02/08/18 13:50 Urine Culture - Final Urine,Catheterized Assessment and Plan Plan: 1. 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 Neurology consult is appreciated. MRA and MRI to be done as well as EEG. Cardiology consult for EDI. Son requested Ativan, Xanax and Haldol not be used. PT, OT and speech therapy. Patient requires modified barium swallow. Aspirin 300 mg rectally daily. 2. Chronic atrial fibrillation on chronic Coumadin. Continue Lopressor is IV at this point until patient is able to swallow. INR is 2.5. 3. History of CAD status post PCI back in 1982, continue aspirin per rectum, IV Lopressor. 4. Hypertension and hypertensive cardiovascular disease. Continue IV Lopressor. 5. History of CVA in 2010. Patient is maintained on Coumadin. 6. Gout, chronic. 7. Vascular dementia. 8. Severe aortic valve stenosis with severe pulmonary hypertension. 9. Hypothyroidism. Synthroid 100 g orally once every day is on hold. 10. GI prophylaxis. Protonix 40 mg IV daily. 11. DVT prophylaxis. Bilateral knee-high AFIA hoses. CODE STATUS: No code Discharge plan: Subacute rehab Impression and plan of care have been directed as dictated by the signing physician. Deanna Kauffman nurse practitioner acting as scribe for signing physician.
[2018-02-10 16:04] LABS: Glucose,Whole Blood 177 mg/dL (75-99)
[2018-02-10] MEDS ORDERED: diphenhydrAMINE 50 MG/ML 1 ML VIAL IVP STA (16:11)
--- NOTE | 2018-02-10 16:35 | CONS ---
CONSULTATION Mrs. Coates is an 82-year-old female who is seen for cardiac evaluation. Patient's medical record is reviewed. The history was obtained mostly from the patient's chart as well as from her . This patient has a prior history of CVA back in 2006 and she also has a history of chronic atrial fibrillation. Patient usually is wheelchair- bound due to her knee problem. She had an episode of left-sided weakness with decreased mentation since , which was actually 2 days prior to coming to the hospital. CT of the brain did not show any new abnormality. There were multiple small lacunar infarcts and white matter changes. There was no evidence of cortical ischemic infarct. Patient has a history of chronic atrial fibrillation and has been treated with anticoagulation. Patient has a history of aortic stenosis. PAST MEDICAL HISTORY: Past medical history includes: 1. History of dementia. 2. History of hyperlipidemia. 3. Hypertension. 4. Osteoarthritis. 5. Thyroid disorder. 6. Macular degeneration. SOCIAL HISTORY: 1. Appendicectomy. 2. Breast surgery. 3. Cholecystectomy. 4. Prior history of catheterization. 5. Joint replacement. 6. Tonsillectomy. HOME MEDICATIONS: The patient's home medications include: 1. Allopurinol 300 mg daily. 2. Synthroid. 3. Tenormin 50 mg daily. 4. Seroquel 100 mg b.i.d. 5. Patient had been on Coumadin. PHYSICAL EXAMINATION: Physical examination at present reveals an 82-year-old female who is confused. She is awake, but she is not following any commands. Patient's heart rate is 70 per minute, blood pressure 130/80 mmHg. Head and ENT examination is negative. Neck is supple. There is no increase in jugular venous pressure. Both the carotid pulses are felt. There is no bruit. Chest is symmetrical. HEART: The PMI is not felt. First and second heart sounds are heard. There is a grade 2/6 ejection systolic murmur noted. Lungs are clinically clear to auscultation and percussion. Abdomen is soft. Liver and spleen are not enlarged. EXTREMITIES: Peripheral pulsations are 2+. EKG shows evidence of atrial fibrillation with a controlled rate. Patient's electrolytes are normal. INR is 2.5. FINAL IMPRESSION: This patient has presented with what appears to be acute left-sided stroke, cortical in origin. The CT scan does not show any new cortical infarct. There are multiple small lacunar infarcts which are secondary to small-vessel disease. The patient has been on chronic Coumadin for her atrial fibrillation. RECOMMENDATIONS: We will await the results of MRI to rule out a new infarct. We will recommend discontinuing the warfarin and consider starting the patient on Eliquis. In view of patient having already been on anticoagulation, EDI would not change in the patient's management, and the patient has evidence so far of only lacunar infarcts secondary to small-vessel disease. At present I will continue aspirin and Plavix until we restart the Eliquis. MMODL / IJN: [id number] /
--- NOTE | 2018-02-10 17:18 | EEG ---
ELECTROENCEPHALOGRAM REPORT DATE OF SERVICE: 02/10/2018. REASON FOR TESTING: Stroke. DESCRIPTION OF THE PROCEDURE: This EEG was performed using a 21 channel digital electroencephalograph, following international 10-20 system. DESCRIPTION OF THE RECORDING: From the beginning of the tracing, with patient's eyes closed, the background rhythm was mostly consisting of 6-7 Hz theta frequency in the posterior occipital leads. Frequent muscle artifacts are noticed, more frequently on the right side compared to the left. Photic stimulation and hyperventilation were not performed. Rare sharp wave activity is seen on the right frontal temporal region. Hyperventilation was not performed. The patient remains awake throughout the tracing. No generalized epileptiform discharges were seen. Her EKG lead showed an irregularly irregular rhythm with a normal rate. INTERPRETATION: This awake EEG is abnormal due to the presence of generalized slowing of the background rhythm, mostly in the theta range. This is consistent with mild encephalopathy. Rare sharp wave activity was also seen, which could be consistent with a reduced seizure threshold. Of note, her EKG lead showed an irregularly irregular rhythm with a normal rate. Clinical correlation is recommended. MMODL / IJN: [id number] /
[2018-02-10] MEDS: LEVOTHYROXINE IVP 100 MCG/5 ML VIAL IV SCH (17:42)
[2018-02-10] MEDS ORDERED: WARFARIN 1 MG TAB PO SCH (18:00)
[2018-02-10] MEDS: ATENOLOL 50 MG TAB PO SCH (19:38)
[2018-02-10] MEDS: QUEtiapine 100 MG TAB PO SCH (19:38)
[2018-02-10 21:43] LABS: Glucose,Whole Blood 135 mg/dL (75-99)
[2018-02-11] MEDS: SODIUM CHLORIDE 0.9% 1,000 ML IV SCH ×3 (02:40→23:22)
[2018-02-11 06:37] LABS: HCT 35.4 % (34.0-46.0); Hypochromasia Slight; MCH 31.3 pg (25.0-35.0); MCHC 32.4 g/dL (31.0-37.0); MCV 96.3 fL (80.0-100.0); Mean Platelet Volume 7.5; Platelet Count 203 k/uL (150-450); RBC 3.67 m/uL (3.80-5.40); RDW 14.6 % (11.5-15.5)
[2018-02-11 06:50] LABS: Glucose,Whole Blood 111 mg/dL (75-99)
[2018-02-11 06:56] LABS: Calcium 9.4 mg/dL (8.4-10.2); Potassium 3.7 mmol/L (3.5-5.1)
[2018-02-11 06:57] LABS: HGB 11.5 gm/dL (11.4-16.0)
[2018-02-11] MEDS ORDERED: ASPIRIN 300 MG SUPP RECTAL SCH (09:00)
[2018-02-11 11:27] LABS: Glucose,Whole Blood 119 mg/dL (75-99)
[2018-02-11] MEDS ORDERED: cloNIDine 0.1 MG/24HR PATCH TRANSDERM SCH (12:15)
[2018-02-11] MEDS: CHOLECALCIFEROL 1,000 UNIT TAB PO SCH (12:21)
[2018-02-11] MEDS: ALLOPURINOL 300 MG TAB PO SCH (12:21)
[2018-02-11] MEDS: ASPIRIN 81 MG PO SCH (12:21)
[2018-02-11] MEDS: CLOPIDOGREL 75 MG TAB PO SCH (12:22)
[2018-02-11] MEDS: HEPARIN SODIUM,PORCINE 5,000 UNIT/ML 1 ML VIAL SQ SCH ×3 (12:36→23:26)
[2018-02-11] MEDS: FAMOTIDINE 20 MG/2 ML VIAL IV SCH (12:36)
[2018-02-11] MEDS: NITROGLYCERIN 0.1MG/HR PATCH TRANSDERM SCH (13:26)
[2018-02-11] MEDS ORDERED: PHYTONADIONE 10 MG in SODIUM CHLORIDE 0.9% 50 ML IVPB STA (13:29)
[2018-02-11] MEDS: ASPIRIN 300 MG SUPP RECTAL SCH (14:17)
--- NOTE | 2018-02-11 15:12 | P.PN ---
Subjective Progress Note Date: 02/11/18 This is a 52 years old female with past medical history significant for stroke in 2017 presents to the emergency department with new onset weakness and left- sided paralysis. Patient is nonverbal and had historian as her son who lives at home with her along with her . Son reported that his mother started having worsening weakness on evening and Saturday morning she developed left sided paralysis but the son attributed that the paralysis due to recent 2 doses of Zithromax as he studied side effects for Zithromax over the Internet and found out that it can cause stroke similar symptoms and decided to keep his mother at home on Saturday patient continued to decline and he decided to bring her into the hospital but she was difficult to handle as he did not call EMS and decided to bring her to the hospital and his own car in the emergency patient was nonverbal and does not follow command have left-sided weakness with left facial droop and was out of window for TPA given the late onset of symptoms. Patient in the emergency department received CT scan of the head which showed multiple lacunar infarcts admitted to the floor with therapeutic INR and received appropriate therapy 02/10: Patient is aphasic from previous stroke. Small amount of movement to left leg but no movement of left arm. Neurology has recommended MRA/MRI and EEG. Patient was not able to be still for MRI. Son has refused ativan and xanax as she gets the opposite effect desired. EDI requested. Cardiology is on consult. Sherman in place. Patient needs swallow eval by speech. She did cough with spoon of water. She is usually wheelchair bound and can stand to pivot. We will add and IV Benadryl to help with sleep this evening. A1c is pending. Family states the patient is a DO NOT RESUSCITATE. 02/11: Patient remains very lethargic but becomes aggressive with moving her in bed. SHe pulled her sherman out last pm. She is unable to follow commands. Patient received Benadryl last pm and slept last night. BP is elevated and catapres patch added. Homocysteine 13, triglycerides 94, cholesterol 182, LDL 136, HDL 31. Cardiology is following. They do not feel EDI is necessary as it will not change treatment. Recommends Plavix and then Eliquis verses coumadin. At this point, patient is NPO. Speech therapy has evaluated patient is unable to follow any commands. Long discussion with the patient's son, PT and patient' s . Son is agreeable for aspirin. He is very concerned because she apparently has had some bleeding since she received 1 dose of aspirin yesterday. Family would like to pursue PEG tube placement and consult with Dr. Valle has been placed. They would like patient to go to subacute rehab at [facility] and we are planning for discharge most likely on Saturday or Saturday. Review Of Systems: unable to obtain due to mental status changes. Objective - Vital Signs Vital signs: Vital Signs Temp 96 F L 02/11/18 00:00 Pulse 89 02/11/18 04:00 Resp 18 02/11/18 04:00 BP 159/123 02/11/18 05:59 Pulse Ox 97 02/11/18 04:00 Intake & Output 02/10/18 02/11/18 02/11/18 18:59 06:59 18:59 Intake Total 500 0 Output Total 550 1100 550 Balance -50 -1100 -550 Weight 87 kg Intake: IV 500 Sodium Chloride 0.9% 1, 500 000 ml @ 100 mls/hr IV . Q10H [facility] Rx#:[id number] Oral 0 Output: Urine 550 1100 550 Other: Voiding Method Indwelling Catheter Indwelling Catheter # Bowel Movements 0 - Exam General appearance: average body habitus, no acute distress - EENT Eyes: Reports EOMI, Reports PERRLA, Reports normal apperance, Denies photophobia , Denies scleral icterus ENT: Reports NA/AT, Reports normal oropharynx, Denies thrush, Denies tonsillar exudates Ears: bilateral: normal - Neck Neck: Reports normal ROM, Denies lymphadenopathy, Denies rigidity, Denies stridor, Denies thyromegaly Carotids: bilateral: upstroke delayed Thyroid: bilateral: normal size - Respiratory Respiratory: bilateral: diminished, negative: dullness, rales, rhonchi, wheezing , prolonged expiration, prolonged inspiration - Cardiovascular Rhythm: regularly irregular Heart sounds: normal: S1, S2 Abnormal Heart Sounds: Reports systolic murmur (3/6 in the right upper sternal border radiating to the base of the neck.), Denies rub, Denies click - Gastrointestinal General gastrointestinal: Reports decreased bowel sounds, Reports soft, Denies splenomegaly, Denies tenderness, Denies umbilical hernia, Denies ventral hernia - Integumentary Integumentary: Reports normal, Reports normal turgor, Denies rash, Denies ulcer - Neurologic Neurologic: CNII-XII intact - Musculoskeletal Musculoskeletal: Reports gait normal, Reports generalized weakness - Psychiatric Psychiatric: Denies A&O Denies appropriate affect, Denies intact judgment & insight, left arm weakness 0/5, left leg weakness, left facial droop. Patient is unable to follow any commands. - Labs CBC & Chem 7: 02/11/18 06:00 02/11/18 06:00 Labs: Abnormal Lab Results - Last 24 Hours (Table) 02/08/18 02/10/18 02/10/18 Range/Units 12:33 11:04 16:02 WBC (3.8-10.6) k/uL RBC (3.80-5.40) m/uL Chloride (98-107) mmol/L Carbon Dioxide (22-30) mmol/L BUN (7-17) mg/dL Glucose (74-99) mg/dL POC Glucose (mg/dL) 167 H 177 H (75-99) mg/dL Hemoglobin A1c 7.3 H (4.0-6.0) % Creatine Kinase (30-135) U/L 02/10/18 02/11/18 02/11/18 Range/Units 21:41 06:00 06:00 WBC 12.0 H (3.8-10.6) k/uL RBC 3.67 L (3.80-5.40) m/uL Chloride 113 H (98-107) mmol/L Carbon Dioxide 19 L (22-30) mmol/L BUN 24 H (7-17) mg/dL Glucose 117 H (74-99) mg/dL POC Glucose (mg/dL) 135 H (75-99) mg/dL Hemoglobin A1c (4.0-6.0) % Creatine Kinase 365 H (30-135) U/L 02/11/18 Range/Units 06:48 WBC (3.8-10.6) k/uL RBC (3.80-5.40) m/uL Chloride (98-107) mmol/L Carbon Dioxide (22-30) mmol/L BUN (7-17) mg/dL Glucose (74-99) mg/dL POC Glucose (mg/dL) 111 H (75-99) mg/dL Hemoglobin A1c (4.0-6.0) % Creatine Kinase (30-135) U/L Assessment and Plan Plan: 1. 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 Neurology consult is appreciated. MRA and MRI to be done as well as EEG. Cardiology consult appreciated. No plan for EDI. Son requested Ativan, Xanax and Haldol not be used. Son is also refusing use of Benadryl. PT, OT and speech therapy. Patient failed swallow eval. Aspirin 300 mg rectally daily. Peg tube placement with Dr. Valle. 2. Chronic atrial fibrillation on chronic Coumadin. Continue Lopressor is IV at this point until patient is able to swallow. INR is 2.5. 3. History of CAD status post PCI back in 1982, continue aspirin per rectum, IV Lopressor. 4. Hypertension and hypertensive cardiovascular disease. Continue IV Lopressor. 5. History of CVA in 2010. Patient is maintained on Coumadin. 6. Gout, chronic. 7. Vascular dementia. 8. Severe aortic valve stenosis with severe pulmonary hypertension. 9. Hypothyroidism. Synthroid 100 g orally once every day is on hold. 10. GI prophylaxis. Protonix 40 mg IV daily. 11. DVT prophylaxis. Bilateral knee-high AFIA hoses. CODE STATUS: No code Discharge plan: Subacute rehab at [facility]. Social work is following. Impression and plan of care have been directed as dictated by the signing physician. Deanna Kauffman nurse practitioner acting as scribe for signing physician.
[2018-02-11 16:30] LABS: Glucose,Whole Blood 110 mg/dL (75-99)
[2018-02-11] MEDS: QUEtiapine 100 MG TAB PO SCH (16:33)
[2018-02-11] MEDS: ATENOLOL 50 MG TAB PO SCH (16:33)
[2018-02-11] MEDS: LEVOTHYROXINE IVP 100 MCG/5 ML VIAL IV SCH ×2 (16:34→20:14)
--- NOTE | 2018-02-11 17:25 | P.GSCN ---
History of Present Illness Consult date: 02/11/18 Reason for Consult: PEG tube placement, dysphasia History of present illness: The patient is a 82-year-old female who was admitted to the hospital after a CVA. She's not been able to swallow medications since admission. She was seen by speech pathology and was determined that she was not safe to eat or take her medications. Review of Systems ROS unobtainable: due to mental status All systems: negative Past Medical History Past Medical History: Atrial Fibrillation, Cancer, Chest Pain / Angina, CVA/TIA , Dementia, Eye Disorder, GI Bleed, Hyperlipidemia, Hypertension, Memory Impairment, Osteoarthritis (OA), Thyroid Disorder Additional Past Medical History / Comment(s): hx GI bleeding, vascular dementia , macular degeneration, gout, .head injury 2012, glaucoma, sinus problems, diverticulitis, wheelchair, skin cancer History of Any Multi-Drug Resistant Organisms: None Reported Past Surgical History: Adenoidectomy, Appendectomy, Breast Surgery, Cholecystectomy, Heart Catheterization With Stent, Joint Replacement, Tonsillectomy Additional Past Surgical History / Comment(s): rt cataract,, left total knee arthroplasty, cath with 2 stents , SINUS SX, thyroidectomy, surgery, lower GI bleed 08/2014-fistula, rt hip replacement, Past Anesthesia/Blood Transfusion Reactions: Previous Problems w/ Anesthesia, Motion Sickness Additional Past Anesthesia/Blood Transfusion Reaction / Comm: gets very aggitated, rage, angry-needed straight jackert per son, in past with anesthesia. 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 PT RECOGNIZERS HIM. Smoking Status: Never smoker Past Alcohol Use History: None Reported Past Drug Use History: None Reported Additional Drug Use History / Comment(s): Patient parents smoked. Patient still smokes. - Past Family History Mother Family Medical History: Coronary Artery Disease (CAD) Additional Family Medical History / Comment(s): [employer] Father Family Medical History: COPD, Coronary Artery Disease (CAD), Liver Disease Additional Family Medical History / Comment(s): LIFEL[employer] SMOK[employer] LIVED TO AGE 84 Sister(s) Family Medical History: Cancer Son(s) Family Medical History: No Reported History Daughter(s) Family Medical History: No Reported History Medications and Allergies Home Medications Medication Instructions Recorded Confirmed Type Allopurinol [Zyloprim] 300 mg PO DAILY 01/26/14 02/08/18 History Levothyroxine Sodium [Synthroid] 100 mcg PO DAILY 01/26/14 02/08/18 History Atenolol [Tenormin] 50 mg PO HS 11/30/16 02/08/18 History Cholecalciferol (Vitamin D3) 2,000 unit PO DAILY 11/30/16 02/08/18 History [Vitamin D3] QUEtiapine [SEROquel] 100 mg PO 2100 11/30/16 02/08/18 History Warfarin [Coumadin] 1 mg PO Q48H 11/30/16 02/08/18 History Warfarin [Coumadin] 2 mg PO Q48H 11/30/16 02/08/18 History Allergies Allergy/AdvReac Type Severity Reaction Status Date / Time Sulfa (Sulfonamide Allergy Unknown Verified 02/08/18 12:57 Antibiotics) Surgical - Exam Osteopathic Statement: *. No significant issues noted on an osteopathic structural exam other than those noted in the History and Physical/Consult. Vital Signs Temp Pulse Resp BP Pulse Ox 98.1 F 89 18 186/135 94 L 02/08/18 12:16 02/08/18 12:16 02/08/18 12:16 02/08/18 12:16 02/08/18 12:16 - General Facial droop is present, not answering questions, garbled speech no distress - Neck trachea midline - Respiratory normal respiratory effort, clear to auscultation - Cardiovascular Rhythm: regular Abnormal Heart Sounds: systolic murmur (2/6 soft systolic ejection) - Abdomen Abdomen: soft, tender, bowel sounds, no organomegaly, no surgical scars (No scars in the upper abdomen) Results - Labs 02/11/18 06:00 02/11/18 06:00 Abnormal Lab Results - Last 24 Hours (Table) 02/10/18 02/11/18 02/11/18 Range/Units 21:41 06:00 06:00 WBC 12.0 H (3.8-10.6) k/uL RBC 3.67 L (3.80-5.40) m/uL Chloride 113 H (98-107) mmol/L Carbon Dioxide 19 L (22-30) mmol/L BUN 24 H (7-17) mg/dL Glucose 117 H (74-99) mg/dL POC Glucose (mg/dL) 135 H (75-99) mg/dL Creatine Kinase 365 H (30-135) U/L 02/11/18 02/11/18 02/11/18 Range/Units 06:48 11:25 16:28 WBC (3.8-10.6) k/uL RBC (3.80-5.40) m/uL Chloride (98-107) mmol/L Carbon Dioxide (22-30) mmol/L BUN (7-17) mg/dL Glucose (74-99) mg/dL POC Glucose (mg/dL) 111 H 119 H 110 H (75-99) mg/dL Creatine Kinase (30-135) U/L Diabetes panel 02/11/18 Range/Units 06:00 Sodium 140 (137-145) mmol/L Potassium 3.7 (3.5-5.1) mmol/L Chloride 113 H (98-107) mmol/L Carbon Dioxide 19 L (22-30) mmol/L BUN 24 H (7-17) mg/dL Creatinine 0.79 (0.52-1.04) mg/dL Glucose 117 H (74-99) mg/dL Calcium 9.4 (8.4-10.2) mg/dL Calcium panel 02/11/18 Range/Units 06:00 Calcium 9.4 (8.4-10.2) mg/dL Pituitary panel 02/11/18 Range/Units 06:00 Sodium 140 (137-145) mmol/L Potassium 3.7 (3.5-5.1) mmol/L Chloride 113 H (98-107) mmol/L Carbon Dioxide 19 L (22-30) mmol/L BUN 24 H (7-17) mg/dL Creatinine 0.79 (0.52-1.04) mg/dL Glucose 117 H (74-99) mg/dL Calcium 9.4 (8.4-10.2) mg/dL Adrenal panel 02/11/18 Range/Units 06:00 Sodium 140 (137-145) mmol/L Potassium 3.7 (3.5-5.1) mmol/L Chloride 113 H (98-107) mmol/L Carbon Dioxide 19 L (22-30) mmol/L BUN 24 H (7-17) mg/dL Creatinine 0.79 (0.52-1.04) mg/dL Glucose 117 H (74-99) mg/dL Calcium 9.4 (8.4-10.2) mg/dL Assessment and Plan (1) Dysphagia due to recent cerebral infarction Current Visit: Yes Status: Acute Code(s): I69.391 - DYSPHAGIA FOLLOWING CEREBRAL INFARCTION SNOMED Code(s): 68960898 (2) Acute alteration in mental status Current Visit: Yes Status: Acute Code(s): R41.82 - ALTERED MENTAL STATUS, UNSPECIFIED SNOMED Code(s): 106492628 (3) Cerebrovascular accident Current Visit: Yes Status: Acute Code(s): I63.9 - CEREBRAL INFARCTION, UNSPECIFIED SNOMED Code(s): 572180417 Plan: The patient's son is at bedside. We discussed the procedure, risks and complications. Discussed the usual postoperative course. Explained if she regains normal swallowing mechanism and is safe to swallow the PEG tube can be removed. Questions were encouraged and answered. We'll recheck her PT/INR in the morning. Tentative PEG tube placement tomorrow.
[2018-02-11 21:05] LABS: Glucose,Whole Blood 128 mg/dL (75-99)
[2018-02-11] MEDS: METOPROLOL TARTRATE 5 MG/5 ML VIAL IVP PRN (21:15)
--- NOTE | 2018-02-11 21:27 | MR ---
EXAMINATION TYPE: MR brain wo con DATE OF EXAM: 02/11/2018 COMPARISON: Prior MRI brain November 10, 2010. CT brain 3 days ago. HISTORY: Confusion, CVA. Neuro deficits on admission 3 days earlier. TECHNIQUE: Multiplanar, multisequence imaging of the brain and brainstem is performed without IV cont rast. FINDINGS: Diffusion weighted images demonstrate areas of increased signal on diffusion weighted images with dim inished signal on ADC mapping that shows T1 hypointensity and T2 hyperintensity in the posterior righ t frontal lobe at level of mello radiata extending to involve the posterior aspect of the basal gang marguerite inferiorly and likely portion of the posterior limb right internal capsule consistent with evolvi ng acute infarct. There is no worrisome extra-axial fluid collection. There is ventricular and sulcal prominence consis tent with diffuse cerebral atrophy redemonstrated more prominent from 2011 MRI. Focal and confluent a reas of T2 hyperintensity are seen throughout the white matter bilaterally most prominent periventric ular region. Midline structures demonstrate normal morphology. The craniocervical junction appears within normal limits. Normal vascular flow voids are present. The visualized sinuses are clear and the globes are i ntact. IMPRESSION: 1. Evolving acute infarct posterior right frontal lobe from level of mello radiata down to posterior aspect of posterior limb right internal capsule and posterior aspect right basal ganglia. 2. Background moderate diffuse cerebral atrophy and moderate to advanced chronic small vessel ischemi c change with progression from 2011 MRI.
--- NOTE | 2018-02-11 21:40 | MR ---
EXAMINATION TYPE: MR angio head/neck wo con DATE OF EXAM: 02/11/2018 COMPARISON: MRA head July 11, 2010 HISTORY: Confusion, CVA TECHNIQUE: Time of flight images focusing on the [place] were performed without contrast.. 2-D and 3-D postprocessing imaging is performed. Imaging of the neck focusing on carotid vessels also performed without contrast. IV contrast could not be given due to IV failure for neck portion of singh dy. FINDINGS: MRA images of the neck do not include aortic arch. Right common carotid artery shows normal origin fr om right brachiocephalic artery. No obvious stenosis identified in the right carotid bulb. Significan t motion artifact degradation is present. Tortuous course to right internal carotid artery is seen. L eft side shows no obvious significant stenosis at carotid bulb level. Patent external carotid arterie s are present bilaterally without significant stenosis. There is better visualization of left middle cerebral artery and vertebral basilar junction on MRA neck images versus MRA head images. MRA images are noted degraded by patient motion. There is codominant vertebrobasilar system. Vertebr al arteries appear patent to the basilar junction, some artifact is noted however at basilar junction making this level suboptimal. There is some narrowing along course of the basilar artery without ane urysmal change. There is hypoplastic right-sided posterior communicating artery noted. Patent left po sterior communicating artery is redemonstrated. Images of the anterior circulation show patent anterior communicating artery. There is poorly visuali zed left A1 segment with filling of A2 segment on current study due to patent anterior communicating artery. No aneurysmal change is seen. There is poor visualization of left middle cerebral artery and distal internal carotid artery. IMPRESSION: 1. Suboptimal study without obvious focal aneurysm at level [place]. 2. Suboptimal study without obvious significant focal stenosis in the visualized portion of common or internal carotid arteries with particular attention to carotid bulbs.
[2018-02-11] MEDS: diphenhydrAMINE 50 MG/ML 1 ML VIAL IVP PRN (23:23)
[2018-02-12] MEDS ORDERED: hydrALAZINE HCL 20 MG/ML 1 ML VIAL IVP STA (01:49)
[2018-02-12] MEDS ORDERED: cloNIDine 0.2 MG/24HR PATCH TRANSDERM SCH (01:49)
[2018-02-12] MEDS ORDERED: diphenhydrAMINE 50 MG/ML 1 ML VIAL IVP STA (01:49)
[2018-02-12 03:10] LABS: Glucose,Whole Blood 106 mg/dL (75-99)
[2018-02-12 06:20] LABS: Glucose,Whole Blood 114 mg/dL (75-99)
[2018-02-12 07:02] LABS: INR 1.4 (<1.2); Partial Thromboplastin Time 26.8 sec (22.0-30.0); Prothrombin Time 13.4 sec (9.0-12.0)
[2018-02-12] MEDS: ALLOPURINOL 300 MG TAB PO SCH (08:01)
[2018-02-12] MEDS: ASPIRIN 81 MG PO SCH (08:01)
[2018-02-12] MEDS: CHOLECALCIFEROL 1,000 UNIT TAB PO SCH (08:01)
[2018-02-12] MEDS: CLOPIDOGREL 75 MG TAB PO SCH (08:01)
[2018-02-12] MEDS: FAMOTIDINE 20 MG/2 ML VIAL IV SCH (08:28)
[2018-02-12] MEDS: NITROGLYCERIN 0.1MG/HR PATCH TRANSDERM SCH (08:28)
[2018-02-12] MEDS: HEPARIN SODIUM,PORCINE 5,000 UNIT/ML 1 ML VIAL SQ SCH (08:28)
[2018-02-12] MEDS: SODIUM CHLORIDE 0.9% 1,000 ML IV SCH ×2 (10:12→18:23)
[2018-02-12 11:34] LABS: Glucose,Whole Blood 125 mg/dL (75-99)
--- NOTE | 2018-02-12 12:13 | P.PN ---
Subjective Progress Note Date: 02/12/18 This is a 52 years old female with past medical history significant for stroke in 2017 presents to the emergency department with new onset weakness and left- sided paralysis. Patient is nonverbal and had historian as her son who lives at home with her along with her . Son reported that his mother started having worsening weakness on evening and Saturday morning she developed left sided paralysis but the son attributed that the paralysis due to recent 2 doses of Zithromax as he studied side effects for Zithromax over the Internet and found out that it can cause stroke similar symptoms and decided to keep his mother at home on Saturday patient continued to decline and he decided to bring her into the hospital but she was difficult to handle as he did not call EMS and decided to bring her to the hospital and his own car in the emergency patient was nonverbal and does not follow command have left-sided weakness with left facial droop and was out of window for TPA given the late onset of symptoms. Patient in the emergency department received CT scan of the head which showed multiple lacunar infarcts admitted to the floor with therapeutic INR and received appropriate therapy 02/10: Patient is aphasic from previous stroke. Small amount of movement to left leg but no movement of left arm. Neurology has recommended MRA/MRI and EEG. Patient was not able to be still for MRI. Son has refused ativan and xanax as she gets the opposite effect desired. EDI requested. Cardiology is on consult. Sherman in place. Patient needs swallow eval by speech. She did cough with spoon of water. She is usually wheelchair bound and can stand to pivot. We will add and IV Benadryl to help with sleep this evening. A1c is pending. Family states the patient is a DO NOT RESUSCITATE. 02/11: Patient remains very lethargic but becomes aggressive with moving her in bed. SHe pulled her sherman out last pm. She is unable to follow commands. Patient received Benadryl last pm and slept last night. BP is elevated and catapres patch added. Homocysteine 13, triglycerides 94, cholesterol 182, LDL 136, HDL 31. Cardiology is following. They do not feel EDI is necessary as it will not change treatment. Recommends Plavix and then Eliquis verses coumadin. At this point, patient is NPO. Speech therapy has evaluated patient is unable to follow any commands. Long discussion with the patient's son, Gautam and patient's . Son is agreeable for aspirin. He is very concerned because she apparently has had some bleeding since she received 1 dose of aspirin yesterday. Family would like to pursue PEG tube placement and consult with Dr. Valle has been placed. They would like patient to go to subacute rehab at [facility] and we are planning for discharge most likely on Saturday or Saturday. 02/12: Patient has been afebrile, blood pressure this morning is 169/97. We made medication changes yesterday which included an nitro patch and Catapres patch. All oral medications are on hold as patient is nothing by mouth and failed swallow evaluation. Depressed patch will be increased dose. Patient was seen by Dr. Valle and scheduled PEG tube placement since afternoon. Patient was very agitated during the night and required an extra dose of Benadryl at 2 AM. Patient will be transferred to the [facility] floor with telemetry today. We are planning for discharge to [facility] on Saturday as they need time to obtain supplies for PEG tube feeding. Cardiology is planning on [facility] for chronic A. fib. MRI of the brain revealed evolving acute infarct in the posterior right frontal lobe from level of the mello radiata down to the posterior aspect of the posterior limb right internal capsule and posterior aspect right basal ganglia. Background moderate diffuse cerebral atrophy and moderate to advanced chronic small vessel ischemic change with progression since 2010. MRA of the head and neck was a suboptimal study without obvious focal aneurysm at level [place] of [place]. Suboptimal study without obvious significant focal stenosis in the visualized portion of the common or internal carotid arteries with particular attention to the carotid bulbs. EEG is abnormal due to presence of generalized slowing of the background rhythm mostly in the theta range consistent with mild encephalopathy. Sharp wave activity could be consistent with reduced seizure threshold. Review Of Systems: unable to obtain due to mental status changes. Objective - Vital Signs Vital signs: Vital Signs Temp 99 F 02/12/18 07:59 Pulse 104 H 02/12/18 07:59 Resp 20 02/12/18 07:59 BP 169/97 02/12/18 07:59 Pulse Ox 95 02/12/18 07:59 Intake & Output 02/11/18 02/12/18 02/12/18 18:59 06:59 18:59 Intake Total 800 1600 Output Total 650 Balance 150 1600 Weight 87 kg 87 kg Intake: IV 800 1600 Sodium Chloride 0.9% 1, 800 1600 000 ml @ 100 mls/hr IV . [facility]H [facility] Rx#:[id number] Output: Urine 650 Uretheral (Sherman) 100 Other: Voiding Method Incontinent # Voids 1 1 1 # Bowel Movements 0 0 - Exam General appearance: average body habitus, no acute distress, patient is resting in bed - EENT Eyes: Reports EOMI, Reports PERRLA, Reports normal apperance, Denies photophobia , Denies scleral icterus ENT: Reports NA/AT, Reports normal oropharynx, Denies thrush, Denies tonsillar exudates Ears: bilateral: normal - Neck Neck: Reports normal ROM, Denies lymphadenopathy, Denies rigidity, Denies stridor, Denies thyromegaly Carotids: bilateral: upstroke delayed Thyroid: bilateral: normal size - Respiratory Respiratory: bilateral: diminished, negative: dullness, rales, rhonchi, wheezing , prolonged expiration, prolonged inspiration - Cardiovascular Rhythm: regularly irregular Heart sounds: normal: S1, S2 Abnormal Heart Sounds: Reports systolic murmur (3/6 in the right upper sternal border radiating to the base of the neck.), Denies rub, Denies click - Gastrointestinal General gastrointestinal: Reports decreased bowel sounds, Reports soft, Denies splenomegaly, Denies tenderness, Denies umbilical hernia, Denies ventral hernia - Integumentary Integumentary: Reports normal, Reports normal turgor, Denies rash, Denies ulcer - Neurologic Neurologic: CNII-XII intact - Musculoskeletal Musculoskeletal: Reports gait normal, Reports generalized weakness - Psychiatric Psychiatric: Denies A&O Denies appropriate affect, Denies intact judgment & insight, left arm weakness 0/5, left leg weakness, left facial droop. Patient is unable to follow any commands. - Labs CBC & Chem 7: 02/11/18 06:00 02/11/18 06:00 Labs: Abnormal Lab Results - Last 24 Hours (Table) 02/11/18 02/11/18 02/11/18 Range/Units 11:25 16:28 21:01 PT (9.0-12.0) sec INR (<1.2) POC Glucose (mg/dL) 119 H 110 H 128 H (75-99) mg/dL 02/12/18 02/12/18 02/12/18 Range/Units 02:56 05:57 06:07 PT 13.4 H (9.0-12.0) sec INR 1.4 H (<1.2) POC Glucose (mg/dL) 106 H 114 H (75-99) mg/dL Assessment and Plan Plan: 1. 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 Neurology consult is appreciated. MRA and MRI to be done as well as EEG. Cardiology consult appreciated. No plan for EDI. Son requested Ativan, Xanax and Haldol not be used. Son is also refusing use of Benadryl. PT, OT and speech therapy. Patient failed swallow eval. Aspirin 300 mg rectally daily. Peg tube placement with Dr. Valle. Pressures to be maintained at greater than 140 systolic. 2. Chronic atrial fibrillation on chronic Coumadin. Continue Lopressor is IV at this point until patient is able to swallow. INR is 2.5. She will start eliquis once PEG tube was placed. 3. History of CAD status post PCI back in 1982, continue aspirin per rectum, IV Lopressor. 4. Hypertension and hypertensive cardiovascular disease. Continue IV Lopressor. 5. History of CVA in 2010. Patient is maintained on Coumadin. 6. Gout, chronic. 7. Vascular dementia. 8. Severe aortic valve stenosis with severe pulmonary hypertension. 9. Hypothyroidism. Synthroid 100 g orally once every day is on hold. 10. GI prophylaxis. Protonix 40 mg IV daily. 11. DVT prophylaxis. Bilateral knee-high AFIA hoses. CODE STATUS: No code Discharge plan: Subacute rehab at [facility] on Saturday. Social work is following. Impression and plan of care have been directed as dictated by the signing physician. Deanna Kauffman nurse practitioner acting as scribe for signing physician.
[2018-02-12] MEDS ORDERED: cloNIDine 0.3 MG/24HR PATCH TRANSDERM SCH (13:00)
[2018-02-12] MEDS ORDERED: APIXABAN 5 MG TAB PO SCH (13:45)
[2018-02-12] MEDS ORDERED: PROPOFOL 10 MG/ML 20 ML VIAL IV ONE (14:09)
[2018-02-12] MEDS ORDERED: IV FLUID CONTINUATION 1,000 ML IV ONE (14:09)
[2018-02-12] MEDS ORDERED: LIDOCAINE 1% INJ 10MG/ML (20 ML MDV) ONE (14:09)
[2018-02-12] MEDS ORDERED: BUPIVACAIN-EPI 0.25%-1:200,000 30 ML VIAL SQ ONE (14:25)
--- NOTE | 2018-02-12 14:36 | P.PCN ---
Date of Procedure: 02/12/18 Preoperative Diagnosis: CVA, dysphagia Postoperative Diagnosis: same, hiatal hernia, gastric wall hematoma Procedure(s) Performed: EGD with PEG tube placement Anesthesia: MAC Surgeon: Elyes Valle Pathology: none sent Condition: stable Disposition: PACU Indications for Procedure: The patient presented with dysphasia after a CVA. She's failed a speech/ swallow evaluation Operative Findings: The patient's taken to the endoscopy suite were gastroscope is passed per mouth to the third and fourth portions of the duodenum. The pharynx is unremarkable. There is a lot of thickish secretions which are aspirated. The esophagus shows some presbyesophagus. There is a small fixed hiatal hernia. The stomach , pylorus, duodenum are otherwise without evidence of polyp, mass lesion, ulcer , other abnormality. The stomach is insufflated transilluminated and palpated. Site was chosen for PEG tube placement. There is prepped and draped in the usual sterile manner. Local anesthetic was instilled in the skin and the abdominal wall. A small skin tano was made an introducer needle was placed. A guidewire is placed the introducer. Its grasped with a polypectomy snare. The endoscope along with snare and guidewire were removed through the patient's mouth. A Pons[place] pull PEG tube was then attached to the guidewire. The guidewire and PEG tube were advanced through the patient's abdominal wall. It marked about 4-5 cm. It was trimmed to size and attached to the appropriate adapters. A dressing was applied. The endoscope was reinserted and there was noted to be a hematoma in the gastric wall. No evidence of active bleeding. She's taken recovery room in satisfactory condition. We'll monitor CBC. Further recommendations to follow.
[2018-02-12] MEDS: LACTATED RINGERS 1,000 ML IV SCH (14:59)
--- NOTE | 2018-02-12 14:59 | PN ---
PROGRESS NOTE This patient has a history of chronic atrial fibrillation. Patient came with a left- sided paralysis. The patient's MRI is suggestive of cortical ischemic infarct on the right side. This is most likely secondary to her atrial fibrillation. MRA does not show any evidence of carotid artery stenosis. The patient's initial INR was subtherapeutic. In view of that, we will recommend to switch the patient to Eliquis 5 mg b.i.d. I will discontinue the Plavix. I would recommend to continue baby aspirin for 2-3 weeks and then continue the patient only on Eliquis 5 mg b.i.d. Patient is going to have back tube placed in today. Blood pressure is 159/100 mmHg. First and second heart sounds are heard. Lungs are clear to auscultation and percussion. MMODL / IJN: [id number] /
[2018-02-12] MEDS: ASPIRIN 300 MG SUPP RECTAL SCH (15:00)
[2018-02-12] MEDS ORDERED: ACETAMINOPHEN SUPPOSITORY 650 MG SUPP RECTAL PRN (16:18)
[2018-02-12] MEDS: amLODIPine 5 MG TAB PO SCH (16:22)
[2018-02-12] MEDS: LEVOTHYROXINE IVP 100 MCG/5 ML VIAL IV SCH (16:31)
[2018-02-12] MEDS: hydrALAZINE HCL 20 MG/ML 1 ML VIAL IVP PRN ×2 (16:31→20:35)
--- NOTE | 2018-02-12 16:58 | P.PN ---
Subjective Progress Note Date: 02/12/18 Principal diagnosis: CVA Neurology is following on an 82-year-old female for CVA. Patient has a history of CVA in 2006. Patient also has a history of atrial fibrillation and is on warfarin in the home setting. Patient is wheelchair bound. Patient was reportedly having new onset left-sided paralysis and decreased mentation 2 days prior to presentation in the ED. Patient had significant left-sided facial droop. Patient has chronic transient aphasia which is been present since last CVA. CT of the brain on arrival showed no acute intracranial abnormality. CT of the brain did show multiple lacunar infarcts. There were noted small lacunar infarcts on the right in the mello radiata and also in the internal capsule. There was also questionable lacunar infarct in the posterior limb of the internal capsule on the left. Chest x-ray showed mild changes of congestive heart failure. EKG showed atrial fibrillation with controlled rate of 88. Since arrival, patient did also have an EEG which was abnormal and was noted to have generalized slowing of the background rhythm mostly in the theta range. Consistent with mild encephalopathy. Rare sharp wave activity was also seen consistent with resisted seizure threshold. EKG showed irregularly irregular rhythm with a normal rate. Cardiology was on consult already. MRA head and neck noted suboptimal study without obvious focal aneurysm at the level of [place] of [place]. MR brain without contrast noted an evolving acute infarct of the posterior right frontal lobe from the level of the mello radiata down to the posterior aspect of the posterior limb right internal capsule and posterior aspect right basal ganglia. Background moderate diffuse cerebral atrophy and moderate to advanced chronic small vessel ischemic change with progression from 2011 MRI. On contact, patient was alert and oriented 1, patient spouse's in the room. Patient was supine in bed, resting in no acute distress. Objective - Vital Signs Vital signs: Vital Signs Temp 97.7 F 02/12/18 15:32 Pulse 98 02/12/18 15:32 Resp 20 02/12/18 15:32 BP 203/109 02/12/18 16:00 Pulse Ox 95 02/12/18 15:32 Intake & Output 02/11/18 02/12/18 02/12/18 18:59 06:59 18:59 Intake Total 800 1600 200 Output Total 650 400 Balance 150 1600 -200 Weight 87 kg 87 kg 87 kg Intake: IV 800 1600 200 Sodium Chloride 0.9% 1, 800 1600 000 ml @ 100 mls/hr IV . Q10H [facility] Rx#:[id number] Output: Urine 650 400 Uretheral (J[place]oh) 100 Other: Voiding Method Incontinent Incontinent # Voids 1 1 1 # Bowel Movements 0 0 - Exam Gen. appearance: Awake, in no apparent distress Head: Atraumatic normocephalic, normal inspection Eyes: PERRL, EOMI. absent: Scleral icterus, conjunctival injection, nystagmus, periorbital swelling. Ear nose and throat: Normal exam, mucous membranes moist Neck: Normal inspection. Absent tenderness, lymphadenopathy Respiratory: No increased work of breathing. Cardiovascular: Irregularly irregular per EEG with normal rate GIabdominal: No guarding no rigidity Extremities: Left upper and lower extremities are flaccid. Neurological: Full meaningful neurological exam was unable to be completed. Patient is unable to follow verbal commands. Patient is alert to person only. Patient has some purposeful movement of the right upper and lower extremity although my normal. Patient does have significant observable/visible left sided facial droop. Patient is unable to tolerate anything by mouth. Speech is minimal and garbled. Sensory exam was unable to be assessed due to patient' s inability to comprehend. No seizure-like activity or tremors were observed are noted. Psychological: Depressed - Labs CBC & Chem 7: 02/11/18 06:00 02/11/18 06:00 Labs: Abnormal Lab Results - Last 24 Hours (Table) 02/11/18 02/12/18 02/12/18 Range/Units 21:01 02:56 05:57 PT 13.4 H (9.0-12.0) sec INR 1.4 H (<1.2) POC Glucose (mg/dL) 128 H 106 H (75-99) mg/dL 02/12/18 02/12/18 Range/Units 06:07 11:32 PT (9.0-12.0) sec INR (<1.2) POC Glucose (mg/dL) 114 H 125 H (75-99) mg/dL Assessment and Plan (1) Cerebrovascular accident Narrative/Plan: Patient has experienced a CVA involving the right frontal lobe from the level of mello radiate into down to the posterior aspect of the posterior limb of the right internal capsule and posterior aspect of the right basal ganglia. Patient also has background moderate diffuse cerebral atrophy and moderate to advanced chronic small vessel ischemic changes on MRI imaging. Patient has significant left upper and lower extremity hemiparesis and left facial droop secondary to stroke. Patient will need extensive rehabilitation given the new neurological deficits. Recommend PT and OT assess/consult on patient as soon as possible. Patient has previously been scheduled for PEG tube placement and is artery nothing per mouth. Continue rectal aspirin at this time. Patient has been considered for transition to [facility] by cardiology when appropriate. Defer to cardiology for anticoagulant selection. Current Visit: Yes Status: Acute Code(s): I63.9 - CEREBRAL INFARCTION, UNSPECIFIED SNOMED Code(s): 455732779 (2) Hemiparesis affecting left side as late effect of stroke Narrative/Plan: As previously noted recommend PT and OT consults as soon as possible to begin rehabilitation and treatment. Patient will also need speech therapy consult for dysphagia and dysarthria. Current Visit: Yes Status: Acute Code(s): I69.354 - HEMIPLGA FOLLOWING CEREBRAL INFRC AFFECTING LEFT NONDOM SIDE SNOMED Code(s): 700404740 (3) Acute alteration in mental status Current Visit: Yes Status: Acute Code(s): R41.82 - ALTERED MENTAL STATUS, UNSPECIFIED SNOMED Code(s): 229092983 (4) Dysphagia due to recent cerebral infarction Current Visit: Yes Status: Acute Code(s): I69.391 - DYSPHAGIA FOLLOWING CEREBRAL INFARCTION SNOMED Code(s): 87640350 Plan: Continue with plan of care as implemented. Recommend begin planning for placement or rehabilitation facility. Anticipate patient to be cleared by neurology within the next 24 hours from a neurological standpoint if no further neurological changes are noted. If any further neurological status changes are noted please notify neurology immediately. Continue his neurological status checks every shift. For now, neurology will continue to follow provide updates as needed or warranted. I discussed the patients history, physical exam, diagnostic testing, lab work and imaging with Dr Euceda prior to implementing the plan above. He agrees with the plan as implemented prior to implementation.
[2018-02-12 17:51] LABS: Glucose,Whole Blood 130 mg/dL (75-99)
[2018-02-12 18:22] LABS: Basophils # (A) 0.1 k/uL (0-0.2); Basophils % (A) 1 %; Eosinophils # (A) 0.2 k/uL (0-0.7); Eosinophils % (A) 1 %; HCT 39.5 % (34.0-46.0); HGB 12.4 gm/dL (11.4-16.0); Lymphocytes # (A) 1.6 k/uL (1.0-4.8); Lymphocytes % (A) 10 %; MCH 30.5 pg (25.0-35.0); MCHC 31.4 g/dL (31.0-37.0); MCV 97.1 fL (80.0-100.0); Monocytes # (A) 0.5 k/uL (0-1.0); Monocytes % (A) 3 %; Neutrophils # (A) 12.8 k/uL (1.3-7.7); Neutrophils % (A) 84 %; Platelet Count 258 k/uL (150-450); RBC 4.07 m/uL (3.80-5.40); RDW 15.1 % (11.5-15.5); WBC 15.3 k/uL (3.8-10.6)
[2018-02-12 20:05] LABS: Glucose,Whole Blood 134 mg/dL (75-99)
[2018-02-12] MEDS: ATENOLOL 50 MG TAB PO SCH (21:52)
[2018-02-12] MEDS: QUEtiapine 100 MG TAB PO SCH (21:52)
[2018-02-13] MEDS: diphenhydrAMINE 50 MG/ML 1 ML VIAL IVP PRN
[2018-02-13 03:42] LABS: Glucose,Whole Blood 141 mg/dL (75-99)
[2018-02-13] MEDS: hydrALAZINE HCL 20 MG/ML 1 ML VIAL IVP PRN ×2 (04:49→09:20)
[2018-02-13] MEDS: METOPROLOL TARTRATE 5 MG/5 ML VIAL IVP PRN (05:36)
[2018-02-13 07:34] LABS: Basophils # (A) 0.1 k/uL (0-0.2); Basophils % (A) 0 %; Eosinophils % (A) 0 %; HCT 35.7 % (34.0-46.0); HGB 11.3 gm/dL (11.4-16.0); Hypochromasia Slight; Lymphocytes # (A) 0.8 k/uL (1.0-4.8); Lymphocytes % (A) 5 %; MCH 30.8 pg (25.0-35.0); MCHC 31.5 g/dL (31.0-37.0); MCV 97.8 fL (80.0-100.0); Macrocytosis Slight; Mean Platelet Volume 7.3; Monocytes # (A) 0.5 k/uL (0-1.0); Monocytes % (A) 3 %; Neutrophils # (A) 15.1 k/uL (1.3-7.7); Neutrophils % (A) 91 %; Platelet Count 245 k/uL (150-450); RBC 3.65 m/uL (3.80-5.40); RDW 15.2 % (11.5-15.5); WBC 16.6 k/uL (3.8-10.6)
[2018-02-13 07:43] LABS: Glucose,Whole Blood 149 mg/dL (75-99)
[2018-02-13] MEDS ORDERED: ASPIRIN 300 MG SUPP RECTAL SCH (09:00)
[2018-02-13] MEDS: ALLOPURINOL 300 MG TAB PO SCH (09:09)
[2018-02-13] MEDS: amLODIPine 5 MG TAB PO SCH (09:09)
[2018-02-13] MEDS: CHOLECALCIFEROL 1,000 UNIT TAB PO SCH (09:10)
[2018-02-13] MEDS: SODIUM CHLORIDE 0.9% 1,000 ML IV SCH ×2 (09:15→17:47)
[2018-02-13] MEDS: LACTATED RINGERS 1,000 ML IV SCH (09:16)
[2018-02-13] MEDS: FAMOTIDINE 20 MG/2 ML VIAL IV SCH (09:17)
--- NOTE | 2018-02-13 10:35 | P.PN ---
Subjective Progress Note Date: 02/13/18 patient is doing well no acute events overnight hemoglobin is stable. Objective - Vital Signs Vital signs: Vital Signs Temp 97.7 F 02/13/18 05:00 Pulse 94 02/13/18 05:47 Resp 20 02/13/18 05:00 BP 152/77 02/13/18 05:47 Pulse Ox 96 02/13/18 05:00 Intake & Output 02/12/18 02/13/18 02/13/18 18:59 06:59 18:59 Intake Total 200 240 Output Total 400 Balance -200 240 Weight 87 kg Intake: IV 200 240 Sodium Chloride 0.9% 1, 240 000 ml @ 100 mls/hr IV . Q10H [facility] Rx#:[id number] Output: Urine 400 Other: Voiding Method Incontinent Incontinent Incontinent # Voids 1 # Bowel Movements 0 - Respiratory Details: nonlabored - Cardiovascular Rhythm: regular - Gastrointestinal Gastrointestinal Comment(s): soft nontender nondistended - Psychiatric Psychiatric: Present: A&O x's 3 - Labs CBC & Chem 7: 02/13/18 06:47 02/11/18 06:00 Labs: Abnormal Lab Results - Last 24 Hours (Table) 02/12/18 02/12/18 02/12/18 Range/Units 11:32 17:50 18:05 WBC 15.3 H (3.8-10.6) k/uL RBC (3.80-5.40) m/uL Hgb (11.4-16.0) gm/dL Neutrophils # 12.8 H (1.3-7.7) k/uL Lymphocytes # (1.0-4.8) k/uL POC Glucose (mg/dL) 125 H 130 H (75-99) mg/dL 02/12/18 02/13/18 02/13/18 Range/Units 20:03 03:40 06:47 WBC 16.6 H (3.8-10.6) k/uL RBC 3.65 L (3.80-5.40) m/uL Hgb 11.3 L (11.4-16.0) gm/dL Neutrophils # 15.1 H (1.3-7.7) k/uL Lymphocytes # 0.8 L (1.0-4.8) k/uL POC Glucose (mg/dL) 134 H 141 H (75-99) mg/dL 02/13/18 Range/Units 07:31 WBC (3.8-10.6) k/uL RBC (3.80-5.40) m/uL Hgb (11.4-16.0) gm/dL Neutrophils # (1.3-7.7) k/uL Lymphocytes # (1.0-4.8) k/uL POC Glucose (mg/dL) 149 H (75-99) mg/dL Assessment and Plan Assessment: postop day 1 PEG tube placement Plan: may start trickle feeds today. Then Advance tube feeds as tolerated to goal
[2018-02-13] MEDS: NITROGLYCERIN 0.1MG/HR PATCH TRANSDERM SCH (11:38)
[2018-02-13 11:45] LABS: Glucose,Whole Blood 144 mg/dL (75-99)
--- NOTE | 2018-02-13 13:00 | P.PN ---
Subjective Progress Note Date: 02/13/18 Principal diagnosis: CVA Neurology is following on an 82-year-old female for CVA. Patient has a history of CVA in 2006. Patient also has a history of atrial fibrillation and is on warfarin in the home setting. Patient is wheelchair bound. Patient was reportedly having new onset left-sided paralysis and decreased mentation 2 days prior to presentation in the ED. Patient had significant left-sided facial droop. Patient has chronic transient aphasia which is been present since last CVA. CT of the brain on arrival showed no acute intracranial abnormality. CT of the brain did show multiple lacunar infarcts. There were noted small lacunar infarcts on the right in the mello radiata and also in the internal capsule. There was also questionable lacunar infarct in the posterior limb of the internal capsule on the left. Chest x-ray showed mild changes of congestive heart failure. EKG showed atrial fibrillation with controlled rate of 88. Since arrival, patient did also have an EEG which was abnormal and was noted to have generalized slowing of the background rhythm mostly in the theta range. Consistent with mild encephalopathy. Rare sharp wave activity was also seen consistent with resisted seizure threshold. EKG showed irregularly irregular rhythm with a normal rate. Cardiology was on consult already. MRA head and neck noted suboptimal study without obvious focal aneurysm at the level of [place]. MR brain without contrast noted an evolving acute infarct of the posterior right frontal lobe from the level of the mello radiata down to the posterior aspect of the posterior limb right internal capsule and posterior aspect right basal ganglia. Background moderate diffuse cerebral atrophy and moderate to advanced chronic small vessel ischemic change with progression from 2011 MRI. 02.13.18: On contact the patient was alert and oriented x1, son was in the room. Patient was supine in bed, resting in no acute distress. Patient had PEG tube in place but per nursing it was not yet in use. 02.12.18: On contact, patient was alert and oriented 1, patient spouse's in the room. Patient was supine in bed, resting in no acute distress. Objective - Vital Signs Vital signs: Vital Signs Temp 97.3 F L 02/13/18 12:35 Pulse 116 H 02/13/18 12:35 Resp 20 02/13/18 12:35 BP 152/100 02/13/18 12:35 Pulse Ox 97 02/13/18 12:35 Intake & Output 02/12/18 02/13/18 02/13/18 18:59 06:59 18:59 Intake Total 200 240 Output Total 400 Balance -200 240 Weight 87 kg 90 kg Intake: IV 200 240 Sodium Chloride 0.9% 1, 240 000 ml @ 100 mls/hr IV . Q10H [facility] Rx#:[id number] Output: Urine 400 Other: Voiding Method Incontinent Incontinent Incontinent # Voids 1 # Bowel Movements 0 - Exam Gen. appearance: Awake, in no apparent distress Head: Atraumatic normocephalic, normal inspection Eyes: PERRL, EOMI. absent: Scleral icterus, conjunctival injection, nystagmus, periorbital swelling. Ear nose and throat: Normal exam, mucous membranes moist Neck: Normal inspection. Absent tenderness, lymphadenopathy Respiratory: No increased work of breathing. Cardiovascular: Irregularly irregular per EEG with normal rate GIabdominal: No guarding no rigidity Extremities: Left upper and lower extremities are flaccid. Neurological: Full meaningful neurological exam was unable to be completed. Patient is unable to follow verbal commands. Patient is alert to person only. Patient has some purposeful movement of the right upper and lower extremity although my normal. Patient does have significant observable/visible left sided facial droop. Patient is unable to tolerate anything by mouth. Speech is minimal and garbled. Sensory exam was unable to be assessed due to patient' s inability to comprehend. No seizure-like activity or tremors were observed are noted. Psychological: Depressed - Labs CBC & Chem 7: 02/13/18 06:47 02/11/18 06:00 Labs: Abnormal Lab Results - Last 24 Hours (Table) 02/12/18 02/12/18 02/12/18 Range/Units 17:50 18:05 20:03 WBC 15.3 H (3.8-10.6) k/uL RBC (3.80-5.40) m/uL Hgb (11.4-16.0) gm/dL Neutrophils # 12.8 H (1.3-7.7) k/uL Lymphocytes # (1.0-4.8) k/uL POC Glucose (mg/dL) 130 H 134 H (75-99) mg/dL 02/13/18 02/13/18 02/13/18 Range/Units 03:40 06:47 07:31 WBC 16.6 H (3.8-10.6) k/uL RBC 3.65 L (3.80-5.40) m/uL Hgb 11.3 L (11.4-16.0) gm/dL Neutrophils # 15.1 H (1.3-7.7) k/uL Lymphocytes # 0.8 L (1.0-4.8) k/uL POC Glucose (mg/dL) 141 H 149 H (75-99) mg/dL 02/13/18 Range/Units 11:32 WBC (3.8-10.6) k/uL RBC (3.80-5.40) m/uL Hgb (11.4-16.0) gm/dL Neutrophils # (1.3-7.7) k/uL Lymphocytes # (1.0-4.8) k/uL POC Glucose (mg/dL) 144 H (75-99) mg/dL Assessment and Plan (1) Cerebrovascular accident Narrative/Plan: Patient has experienced a CVA involving the right frontal lobe from the level of mello radiate into down to the posterior aspect of the posterior limb of the right internal capsule and posterior aspect of the right basal ganglia. Patient also has background moderate diffuse cerebral atrophy and moderate to advanced chronic small vessel ischemic changes on MRI imaging. Patient has significant left upper and lower extremity hemiparesis and left facial droop secondary to stroke. Patient will need extensive rehabilitation given the new neurological deficits. PT/OT already on consult, Defer to cardiology for anticoagulant selection. Continue anticoagulant use in rehabilitative setting. Once patient can tolerate, patient should be placed on antihyperlipidemic medication as well for risk reduction as well. Current Visit: Yes Status: Acute Code(s): I63.9 - CEREBRAL INFARCTION, UNSPECIFIED SNOMED Code(s): 301208545 (2) Hemiparesis affecting left side as late effect of stroke Narrative/Plan: As previously noted recommend PT and OT consults as soon as possible to begin rehabilitation and treatment. Patient will also need speech therapy consult for dysphagia and dysarthria. Current Visit: Yes Status: Acute Code(s): I69.354 - HEMIPLGA FOLLOWING CEREBRAL INFRC AFFECTING LEFT NONDOM SIDE SNOMED Code(s): 061976440 (3) Acute alteration in mental status Current Visit: Yes Status: Acute Code(s): R41.82 - ALTERED MENTAL STATUS, UNSPECIFIED SNOMED Code(s): 845316613 (4) Dysphagia due to recent cerebral infarction Current Visit: Yes Status: Acute Code(s): I69.391 - DYSPHAGIA FOLLOWING CEREBRAL INFARCTION SNOMED Code(s): 48232320 Plan: Continue with plan of care as implemented. Recommend begin planning for placement or rehabilitation facility. Patient can be cleared from a neurological standpoint for placement at a rehabilitation facility. I discussed the patients history, physical exam, diagnostic testing, lab work and imaging with Dr Euceda prior to implementing the plan above. He agrees with the plan as implemented prior to implementation.
[2018-02-13 17:08] LABS: Glucose,Whole Blood 131 mg/dL (75-99)
[2018-02-13] MEDS: LEVOTHYROXINE IVP 100 MCG/5 ML VIAL IV SCH (17:46)
--- NOTE | 2018-02-13 18:56 | P.PN ---
Subjective Progress Note Date: 02/13/18 This is a 52 years old female with past medical history significant for stroke in 2017 presents to the emergency department with new onset weakness and left- sided paralysis. Patient is nonverbal and had historian as her son who lives at home with her along with her . Son reported that his mother started having worsening weakness on evening and Saturday morning she developed left sided paralysis but the son attributed that the paralysis due to recent 2 doses of Zithromax as he studied side effects for Zithromax over the Internet and found out that it can cause stroke similar symptoms and decided to keep his mother at home on Saturday patient continued to decline and he decided to bring her into the hospital but she was difficult to handle as he did not call EMS and decided to bring her to the hospital and his own car in the emergency patient was nonverbal and does not follow command have left-sided weakness with left facial droop and was out of window for TPA given the late onset of symptoms. Patient in the emergency department received CT scan of the head which showed multiple lacunar infarcts admitted to the floor with therapeutic INR and received appropriate therapy 02/10: Patient is aphasic from previous stroke. Small amount of movement to left leg but no movement of left arm. Neurology has recommended MRA/MRI and EEG. Patient was not able to be still for MRI. Son has refused ativan and xanax as she gets the opposite effect desired. EDI requested. Cardiology is on consult. Sherman in place. Patient needs swallow eval by speech. She did cough with spoon of water. She is usually wheelchair bound and can stand to pivot. We will add and IV Benadryl to help with sleep this evening. A1c is pending. Family states the patient is a DO NOT RESUSCITATE. 02/11: Patient remains very lethargic but becomes aggressive with moving her in bed. SHe pulled her sherman out last pm. She is unable to follow commands. Patient received Benadryl last pm and slept last night. BP is elevated and catapres patch added. Homocysteine 13, triglycerides 94, cholesterol 182, LDL 136, HDL 31. Cardiology is following. They do not feel EDI is necessary as it will not change treatment. Recommends Plavix and then Eliquis verses coumadin. At this point, patient is NPO. Speech therapy has evaluated patient is unable to follow any commands. Long discussion with the patient's son, Gautam and patient's . Son is agreeable for aspirin. He is very concerned because she apparently has had some bleeding since she received 1 dose of aspirin yesterday. Family would like to pursue PEG tube placement and consult with Dr. Valle has been placed. They would like patient to go to subacute rehab at [facility] and we are planning for discharge most likely on Saturday or Saturday. 02/12: Patient has been afebrile, blood pressure this morning is 169/97. We made medication changes yesterday which included an nitro patch and Catapres patch. All oral medications are on hold as patient is nothing by mouth and failed swallow evaluation. Depressed patch will be increased dose. Patient was seen by Dr. Valle and scheduled PEG tube placement since afternoon. Patient was very agitated during the night and required an extra dose of Benadryl at 2 AM. Patient will be transferred to the [facility] floor with telemetry today. We are planning for discharge to [facility] on Saturday as they need time to obtain supplies for PEG tube feeding. Cardiology is planning on [facility] for chronic A. fib. MRI of the brain revealed evolving acute infarct in the posterior right frontal lobe from level of the mello radiata down to the posterior aspect of the posterior limb right internal capsule and posterior aspect right basal ganglia. Background moderate diffuse cerebral atrophy and moderate to advanced chronic small vessel ischemic change with progression since 2010. MRA of the head and neck was a suboptimal study without obvious focal aneurysm at level [place]. Suboptimal study without obvious significant focal stenosis in the visualized portion of the common or internal carotid arteries with particular attention to the carotid bulbs. EEG is abnormal due to presence of generalized slowing of the background rhythm mostly in the theta range consistent with mild encephalopathy. Sharp wave activity could be consistent with reduced seizure threshold. 02/13 PEG basement was performed yesterday, patient is still confused, no verbal communication this time, patient seems to be uncomfortable, bladder seems to be full on examination, were going to obtain bladder scan postvoid residual with Sherman to be placed over 250 patient has some cough, chest x-ray to be performed, suspect aspiration pneumonitis leukocytosis noted 16.6 MAXIMUM TEMPERATURE at 98.2 and as low as 96.3 is when is at bedside no current concerns , blood pressure is better controlled between 150-167 most oral medications will be started today for blood pressure as well as for Seroquel. Patient has been sleep deprived for the past for 5 days since admission. PEG feedings to be initiated today, dietary consult. Discharge planning skilled ECF expected Objective - Vital Signs Vital signs: Vital Signs Temp 97.3 F L 02/13/18 12:35 Pulse 116 H 02/13/18 12:35 Resp 20 02/13/18 12:35 BP 152/100 02/13/18 12:35 Pulse Ox 97 02/13/18 12:35 Intake & Output 02/12/18 02/13/18 02/13/18 18:59 06:59 18:59 Intake Total 200 240 Output Total 400 Balance -200 240 Weight 87 kg 90 kg Intake: IV 200 240 Sodium Chloride 0.9% 1, 240 000 ml @ 100 mls/hr IV . Q10H [facility] Rx#:[id number] Output: Urine 400 Other: Voiding Method Incontinent Incontinent Incontinent # Voids 1 2 # Bowel Movements 0 - Constitutional Constitutional Comment(s): Facial droop General appearance: Present: average body habitus, disheveled, no acute distress - EENT Eyes: Present: anicteric sclerae, EOMI, PERRLA - Neck Neck: Present: normal ROM - Respiratory Respiratory: bilateral: CTA, diminished - Cardiovascular Rhythm: regular Heart sounds: normal: S2, abnormal: S1 Abnormal Heart Sounds: Present: systolic murmur (Aortic stenosis). Absent: diastolic murmur, rub, S3 Gallop, S4 Gallop, click, other - Gastrointestinal General gastrointestinal: Present: normal bowel sounds, soft - Integumentary Integumentary: Present: decreased turgor, normal - Neurologic Neurologic Comment(s): Left facial droop - Musculoskeletal Musculoskeletal Comment(s): Left lower hemiparesis upper extremity hemiplegia - Psychiatric Psychiatric Comment(s): Confused and nonverbal cannot communicate - Labs CBC & Chem 7: 02/13/18 06:47 02/11/18 06:00 Labs: Abnormal Lab Results - Last 24 Hours (Table) 02/12/18 02/13/18 02/13/18 Range/Units 20:03 03:40 06:47 WBC 16.6 H (3.8-10.6) k/uL RBC 3.65 L (3.80-5.40) m/uL Hgb 11.3 L (11.4-16.0) gm/dL Neutrophils # 15.1 H (1.3-7.7) k/uL Lymphocytes # 0.8 L (1.0-4.8) k/uL POC Glucose (mg/dL) 134 H 141 H (75-99) mg/dL 02/13/18 02/13/18 02/13/18 Range/Units 07:31 11:32 17:05 WBC (3.8-10.6) k/uL RBC (3.80-5.40) m/uL Hgb (11.4-16.0) gm/dL Neutrophils # (1.3-7.7) k/uL Lymphocytes # (1.0-4.8) k/uL POC Glucose (mg/dL) 149 H 144 H 131 H (75-99) mg/dL Assessment and Plan Plan: 1. 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 Neurology consult is appreciated. MRA and MRI to be done as well as EEG. Cardiology consult appreciated. No plan for EDI. Son requested Ativan, Xanax and Haldol not be used. Son is also refusing use of Benadryl. PT, OT and speech therapy. Patient failed swallow eval. Aspirin 300 mg rectally daily. Peg tube placement with Dr. Valle performed February 12, 2018 feeding tube treatments by dietary. Pressures to be maintained at greater than 140 systolic. 2. Chronic atrial fibrillation on chronic Coumadin. She will start eliquis once PEG tube was placed. Metoprolol 50 mg twice a day 3. Aspiration pneumonia suspected, vision completely nothing by mouth with cough and leukocytosis, chest x-ray to be done, start Zosyn, IV 3. History of CAD status post PCI back in 1982, continue aspirin this in the pill amlodipine Imdur clonidine 4. Hypertension emergency and hypertensive cardiovascular disease. . Catapres 0.3 patch, nitroglycerin patch 0.1, Tenormin 50 mg twice a day, amlodipine 5 mg daily initiated, this in the pill 2.5 mg twice a day initiated, on when necessary hydralazine 5. History of CVA in 2010. Patient is maintained on Coumadin. 6. Gout, chronic. 7. Vascular dementia. 8. Severe aortic valve stenosis with severe pulmonary hypertension. 9. Hypothyroidism. Synthroid 100 g orally once every day is on hold. 10. GI prophylaxis. Protonix 40 mg IV daily. 11. DVT prophylaxis. Bilateral knee-high AFIA hoses. 12. 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 Patient would restart Seroquel 100 mg at bedtime as scheduled to be provided through NG tube CODE STATUS: No code Discharge plan: Subacute rehab at [facility] on Saturday. Social work is following.
--- NOTE | 2018-02-13 19:33 | PN ---
PROGRESS NOTE Mrs. Coates is an 82-year-old female with a known history of chronic persistent atrial fibrillation who presented with history of peripheral vascular accident. She has confusion which is somewhat chronic. I had discussed the issue with her . She continued in atrial fibrillation with controlled ventricular response. She has no episode of significant tachycardia or bradycardia. The patient has been switched to Eliquis from Coumadin because of the recent event. She is on Eliquis 5 mg twice a day at this time, amlodipine 5 mg daily, Clonidine patch, hydralazine intravenous on a p.r.n. basis, Tenormin 50 mg daily, transderm patch and Lopressor IV. PHYSICAL EXAMINATION: Blood pressure running in the 130s to 160s with a heart rate in the high 90s to 100s. LUNGS: Clear. HEART: Irregular regular. S1, S2. No S3. No rub. ABDOMEN: Soft, nontender. EXTREMITIES: No edema. IMPRESSION: 1. Cerebrovascular accident. 2. Chronic persistent atrial fibrillation. 3. Hypertension remains elevated. RECOMMENDATION: I will stop her p.r.n. blood pressure medication. I will increase the dose of her beta isaac. I will stop the aspirin rectal. Depending on her blood pressure response, further recommendation will be made. I will add to her regimen low-dose losartan and depending on her progress further recommendations will be made. Unfortunately, the prognosis is guarded. MMODL / IJN: [id number] /
[2018-02-13] MEDS: PIPERACILLIN-TAZOBACTAM 3.375 GM in SODIUM CHLORIDE 0.9% 100 ML IVPB SCH (20:06)
--- NOTE | 2018-02-13 20:35 | XR ---
EXAMINATION TYPE: XR chest 1V portable DATE OF EXAM: 02/13/2018 COMPARISON: 02/08/2018 HISTORY: Short of breath TECHNIQUE: Single frontal view of the chest is obtained. FINDINGS: A single view shows an enlarged heart. There is mild pulmonary congestion. I see no defini te pulmonary consolidation. There is no definite pleural effusion. IMPRESSION: Cardiomegaly with probably mild heart failure. No change compared to last exam.
[2018-02-13] MEDS: QUEtiapine 100 MG TAB PO SCH (23:28)
[2018-02-13] MEDS: ATENOLOL 50 MG TAB PO SCH (23:28)
[2018-02-13] MEDS: LISINOPRIL 2.5 MG TAB PO SCH (23:29)
[2018-02-14 00:15] LABS: Glucose,Whole Blood 171 mg/dL (75-99)
[2018-02-14] MEDS: SODIUM CHLORIDE 0.9% 1,000 ML IV SCH ×2 (01:45→10:50)
[2018-02-14] MEDS: PIPERACILLIN-TAZOBACTAM 3.375 GM in SODIUM CHLORIDE 0.9% 100 ML IVPB SCH ×3 (04:26→22:13)
[2018-02-14 06:40] LABS: Glucose,Whole Blood 146 mg/dL (75-99)
[2018-02-14 08:01] LABS: Basophils % (A) 0 %; Eosinophils # (A) 0.3 k/uL (0-0.7); Eosinophils % (A) 2 %; HCT 34.3 % (34.0-46.0); HGB 11.1 gm/dL (11.4-16.0); Hypochromasia Slight; Lymphocytes % (A) 7 %; MCH 32.1 pg (25.0-35.0); MCHC 32.5 g/dL (31.0-37.0); Macrocytosis Slight; Mean Platelet Volume 7.4; Monocytes # (A) 0.4 k/uL (0-1.0); Monocytes % (A) 3 %; Neutrophils # (A) 11.7 k/uL (1.3-7.7); Neutrophils % (A) 86 %; Platelet Count 227 k/uL (150-450); RBC 3.47 m/uL (3.80-5.40); RDW 15.7 % (11.5-15.5); WBC 13.6 k/uL (3.8-10.6)
[2018-02-14 08:07] LABS: Calcium 9.7 mg/dL (8.4-10.2); Potassium 3.4 mmol/L (3.5-5.1)
[2018-02-14] MEDS: LACTATED RINGERS 1,000 ML IV SCH (08:53)
[2018-02-14] MEDS: ALLOPURINOL 300 MG TAB PO SCH (08:54)
[2018-02-14] MEDS: amLODIPine 5 MG TAB PO SCH (08:54)
[2018-02-14] MEDS: ATENOLOL 50 MG TAB PO SCH (08:54)
[2018-02-14] MEDS: CHOLECALCIFEROL 1,000 UNIT TAB PO SCH (08:55)
[2018-02-14] MEDS: LISINOPRIL 2.5 MG TAB PO SCH (08:55)
[2018-02-14] MEDS: FAMOTIDINE 20 MG/2 ML VIAL IV SCH (08:55)
[2018-02-14 11:01] LABS: Glucose,Whole Blood 167 mg/dL (75-99)
[2018-02-14] MEDS ORDERED: LACTULOSE 20 GM/30 ML CUP PO SCH (12:30)
[2018-02-14] MEDS: LACTULOSE 20 GM/30 ML CUP PEG/G-TUBE SCH ×2 (12:50→22:16)
[2018-02-14] MEDS ORDERED: POTASSIUM BICARBONATE/CIT AC 20 MEQ TABLET.EFF NG-TUBE ONE (15:01)
--- NOTE | 2018-02-14 15:07 | P.PN ---
Subjective Progress Note Date: 02/14/18 This is a 52 years old female with past medical history significant for stroke in 2017 presents to the emergency department with new onset weakness and left- sided paralysis. Patient is nonverbal and had historian as her son who lives at home with her along with her . Son reported that his mother started having worsening weakness on evening and Saturday morning she developed left sided paralysis but the son attributed that the paralysis due to recent 2 doses of Zithromax as he studied side effects for Zithromax over the Internet and found out that it can cause stroke similar symptoms and decided to keep his mother at home on Saturday patient continued to decline and he decided to bring her into the hospital but she was difficult to handle as he did not call EMS and decided to bring her to the hospital and his own car in the emergency patient was nonverbal and does not follow command have left-sided weakness with left facial droop and was out of window for TPA given the late onset of symptoms. Patient in the emergency department received CT scan of the head which showed multiple lacunar infarcts admitted to the floor with therapeutic INR and received appropriate therapy 02/10: Patient is aphasic from previous stroke. Small amount of movement to left leg but no movement of left arm. Neurology has recommended MRA/MRI and EEG. Patient was not able to be still for MRI. Son has refused ativan and xanax as she gets the opposite effect desired. EDI requested. Cardiology is on consult. Sherman in place. Patient needs swallow eval by speech. She did cough with spoon of water. She is usually wheelchair bound and can stand to pivot. We will add and IV Benadryl to help with sleep this evening. A1c is pending. Family states the patient is a DO NOT RESUSCITATE. 02/11: Patient remains very lethargic but becomes aggressive with moving her in bed. SHe pulled her sherman out last pm. She is unable to follow commands. Patient received Benadryl last pm and slept last night. BP is elevated and catapres patch added. Homocysteine 13, triglycerides 94, cholesterol 182, LDL 136, HDL 31. Cardiology is following. They do not feel EDI is necessary as it will not change treatment. Recommends Plavix and then Eliquis verses coumadin. At this point, patient is NPO. Speech therapy has evaluated patient is unable to follow any commands. Long discussion with the patient's son, Gautam and patient's . Son is agreeable for aspirin. He is very concerned because she apparently has had some bleeding since she received 1 dose of aspirin yesterday. Family would like to pursue PEG tube placement and consult with Dr. Valle has been placed. They would like patient to go to subacute rehab at [facility] and we are planning for discharge most likely on Saturday or Saturday. 02/12: Patient has been afebrile, blood pressure this morning is 169/97. We made medication changes yesterday which included an nitro patch and Catapres patch. All oral medications are on hold as patient is nothing by mouth and failed swallow evaluation. Depressed patch will be increased dose. Patient was seen by Dr. Valle and scheduled PEG tube placement since afternoon. Patient was very agitated during the night and required an extra dose of Benadryl at 2 AM. Patient will be transferred to the [facility] floor with telemetry today. We are planning for discharge to [facility] on Saturday as they need time to obtain supplies for PEG tube feeding. Cardiology is planning on [facility] for chronic A. fib. MRI of the brain revealed evolving acute infarct in the posterior right frontal lobe from level of the mello radiata down to the posterior aspect of the posterior limb right internal capsule and posterior aspect right basal ganglia. Background moderate diffuse cerebral atrophy and moderate to advanced chronic small vessel ischemic change with progression since 2010. MRA of the head and neck was a suboptimal study without obvious focal aneurysm at level [place]. Suboptimal study without obvious significant focal stenosis in the visualized portion of the common or internal carotid arteries with particular attention to the carotid bulbs. EEG is abnormal due to presence of generalized slowing of the background rhythm mostly in the theta range consistent with mild encephalopathy. Sharp wave activity could be consistent with reduced seizure threshold. 02/13 PEG placement was performed yesterday, patient is still confused, no verbal communication this time, patient seems to be uncomfortable, bladder seems to be full on examination, were going to obtain bladder scan postvoid residual with Sherman to be placed over 250 patient has some cough, chest x-ray to be performed, suspect aspiration pneumonitis leukocytosis noted 16.6 MAXIMUM TEMPERATURE at 98.2 and as low as 96.3 is when is at bedside no current concerns , blood pressure is better controlled between 150-167 most oral medications will be started today for blood pressure as well as for Seroquel. Patient has been sleep deprived for the past for 5 days since admission. PEG feedings to be initiated today, dietary consult. Discharge planning skilled ECF expected 02/14: Patient is now seen on the [facility] floor. She is receiving PEG tube feedings at 30 ML's per hour with goal of 65. She is also on 30 mL of water every 4 hours. She has hypoactive bowel sounds and no bowel movement documented since admission. Lactulose will be added. Patient's is at bedside and questions have been answered. She has been afebrile, vital signs are stable, pulse ox is 100% on 2 L nasal cannula. Potassium will be replaced. Patient is currently on Zosyn We are still planning on discharge to ECF on Saturday. Review Of Systems: unable to obtain due to mental status changes. Objective - Vital Signs Vital signs: Vital Signs Temp 97.7 F 02/14/18 05:00 Pulse 83 02/14/18 05:00 Resp 17 02/14/18 05:00 BP 134/89 02/14/18 05:00 Pulse Ox 99 02/14/18 05:00 Intake & Output 02/13/18 02/14/18 02/14/18 18:59 06:59 18:59 Intake Total 720 Balance 720 Weight 90 kg Intake: IV 240 Sodium Chloride 0.9% 1, 240 000 ml @ 100 mls/hr IV . Q10H SUSAN Rx#:[id number] Intake, IV Titration 200 Amount Piperacillin-Tazobactam 3 200 .375 gm In Sodium Chloride 0.9% 100 ml @ 25 mls/hr IVPB Q8H SUSAN Rx#: [id number] Oral 0 Tube Feeding 220 Other 60 Other: Voiding Method Incontinent Diaper Incontinent # Voids 2 - Exam General appearance: average body habitus, no acute distress, patient is resting in bed - EENT Eyes: Reports EOMI, Reports PERRLA, Reports normal apperance, Denies photophobia , Denies scleral icterus ENT: Reports NA/AT, Reports normal oropharynx, Denies thrush, Denies tonsillar exudates Ears: bilateral: normal - Neck Neck: Reports normal ROM, Denies lymphadenopathy, Denies rigidity, Denies stridor, Denies thyromegaly Carotids: bilateral: upstroke delayed Thyroid: bilateral: normal size - Respiratory Respiratory: bilateral: diminished, negative: dullness, rales, rhonchi, wheezing , prolonged expiration, prolonged inspiration - Cardiovascular Rhythm: regularly irregular Heart sounds: normal: S1, S2 Abnormal Heart Sounds: Reports systolic murmur (3/6 in the right upper sternal border radiating to the base of the neck.), Denies rub, Denies click - Gastrointestinal General gastrointestinal: Reports decreased bowel sounds, Reports soft, Denies splenomegaly, Denies tenderness, Denies umbilical hernia, Denies ventral hernia - Integumentary Integumentary: Reports normal, Reports normal turgor, Denies rash, Denies ulcer - Neurologic Neurologic: CNII-XII intact - Musculoskeletal Musculoskeletal: Reports gait normal, Reports generalized weakness - Psychiatric Psychiatric: Denies A&Ox0 Denies appropriate affect, Denies intact judgment & insight, left arm weakness 0/5, left leg weakness, left facial droop. Patient is unable to follow any commands. - Labs CBC & Chem 7: 02/14/18 06:23 02/14/18 06:23 Labs: Abnormal Lab Results - Last 24 Hours (Table) 02/13/18 02/13/18 02/14/18 Range/Units 11:32 17:05 00:11 WBC (3.8-10.6) k/uL RBC (3.80-5.40) m/uL Hgb (11.4-16.0) gm/dL RDW (11.5-15.5) % Neutrophils # (1.3-7.7) k/uL Sodium (137-145) mmol/L Potassium (3.5-5.1) mmol/L Chloride (98-107) mmol/L BUN (7-17) mg/dL Glucose (74-99) mg/dL POC Glucose (mg/dL) 144 H 131 H 171 H (75-99) mg/dL 02/14/18 02/14/18 02/14/18 Range/Units 06:20 06:23 06:23 WBC 13.6 H (3.8-10.6) k/uL RBC 3.47 L (3.80-5.40) m/uL Hgb 11.1 L (11.4-16.0) gm/dL RDW 15.7 H (11.5-15.5) % Neutrophils # 11.7 H (1.3-7.7) k/uL Sodium 146 H (137-145) mmol/L Potassium 3.4 L (3.5-5.1) mmol/L Chloride 116 H (98-107) mmol/L BUN 37 H (7-17) mg/dL Glucose 139 H (74-99) mg/dL POC Glucose (mg/dL) 146 H (75-99) mg/dL Assessment and Plan Plan: 1. 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 Neurology consult is appreciated. MRA and MRI EEG as above. Cardiology consult appreciated. No plan for EDI. Son requested Ativan, Xanax and Haldol not be used. PT, OT and speech therapy. Patient failed swallow eval. continue eliquis. Peg tube placement with Dr. Valle performed February 12, 2018 feeding tube treatments by dietary. Pressures to be maintained at greater than 140 systolic. 2. Chronic atrial fibrillation on chronic Coumadin. Continue eliquis and atenolol 3. Aspiration pneumonia suspected, completely nothing by mouth with cough and leukocytosis, chest x-ray to be done, start Zosyn. 3. History of CAD status post PCI back in 1982, continue aspirin this in the pill amlodipine Imdur clonidine 4. Hypertension emergency and hypertensive cardiovascular disease. Catapres 0.3 patch, nitroglycerin patch 0.1, Tenormin 50 mg twice a day, amlodipine 5 mg daily initiated 5. History of CVA in 2010. Patient failed treatment on Coumadin and now on eliquis. 6. Gout, chronic. Continue allopurinol 7. Vascular dementia. 8. Severe aortic valve stenosis with severe pulmonary hypertension. 9. Hypothyroidism. Synthroid 100 g orally once every day. 10. GI prophylaxis. Pepcid. 11. DVT prophylaxis. Eliquis. 12. 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 CODE STATUS: No code Discharge plan: Subacute rehab at [facility] on Saturday. Social work is following. Impression and plan of care have been directed as dictated by the signing physician. Deanna Kauffman nurse practitioner acting as scribe for signing physician.
--- NOTE | 2018-02-14 15:19 | PN ---
PROGRESS NOTE Mrs. Coates is an 82-year-old female who presented with cerebrovascular accident. She has history of chronic persistent atrial fibrillation and was anticoagulated with Coumadin. She has dementia. This morning she is awake, confused, hemodynamically stable. She continues to be on amlodipine 5 mg daily, Eliquis 5 mg twice a day, atenolol 50 mg twice a day, clonidine patch 0.3, lisinopril 2.5 mg twice a day. PHYSICAL EXAMINATION: Blood pressure 123/60 with a heart rate in the 60s. LUNGS: Clear. HEART: Irregularly regular. S1, S2. No S3. No rub. ABDOMEN: Soft. PEG tube in place. EXTREMITIES: No edema. LAB DATA: BUN and creatinine of 37 and 1.01, potassium 3.4, hemoglobin of 11.1. IMPRESSION: 1. Cerebrovascular accident with chronic persistent atrial fibrillation. Patient has been changed to Eliquis. 2. Chronic persistent atrial fibrillation. 3. Dementia. 4. Hypertension, under better control. RECOMMENDATIONS: Will continue present therapy, follow her renal function closely. The plan is to transfer the patient to a fpc. MMODL / YANIRAN: [id number] /
[2018-02-14] MEDS: LEVOTHYROXINE IVP 100 MCG/5 ML VIAL IV SCH (16:48)
[2018-02-14 17:12] LABS: Glucose,Whole Blood 196 mg/dL (75-99)
--- NOTE | 2018-02-14 18:59 | P.PN ---
Subjective Progress Note Date: 02/14/18 patient is doing well no acute events overnight tolerating tube feeds. Objective - Vital Signs Vital signs: Vital Signs Temp 97.4 F L 02/14/18 12:48 Pulse 66 02/14/18 12:48 Resp 16 02/14/18 12:48 BP 123/66 02/14/18 12:48 Pulse Ox 100 02/14/18 12:48 Intake & Output 02/13/18 02/14/18 02/14/18 18:59 06:59 18:59 Intake Total 720 660 Balance 720 660 Weight 90 kg 91.5 kg Intake: IV 240 Sodium Chloride 0.9% 1, 240 000 ml @ 20 mls/hr IV . Q24H SUSAN Rx#:[id number] Intake, IV Titration 200 260 Amount Piperacillin-Tazobactam 3 200 100 .375 gm In Sodium Chloride 0.9% 100 ml @ 25 mls/hr IVPB Q8H SUSAN Rx#: [id number] Sodium Chloride 0.9% 1, 160 000 ml @ 20 mls/hr IV . Q24H SUSAN Rx#:[id number] Oral 0 Tube Feeding 220 400 Other 60 Other: Voiding Method Incontinent Diaper Diaper Incontinent Incontinent # Voids 2 1 # Bowel Movements 1 - Constitutional General appearance: Present: cooperative - Respiratory Details: nonlabored - Gastrointestinal Gastrointestinal Comment(s): soft non distended non tender - Labs CBC & Chem 7: 02/14/18 06:23 02/14/18 06:23 Labs: Abnormal Lab Results - Last 24 Hours (Table) 02/14/18 02/14/18 02/14/18 Range/Units 00:11 06:20 06:23 WBC (3.8-10.6) k/uL RBC (3.80-5.40) m/uL Hgb (11.4-16.0) gm/dL RDW (11.5-15.5) % Neutrophils # (1.3-7.7) k/uL Sodium 146 H (137-145) mmol/L Potassium 3.4 L (3.5-5.1) mmol/L Chloride 116 H (98-107) mmol/L BUN 37 H (7-17) mg/dL Glucose 139 H (74-99) mg/dL POC Glucose (mg/dL) 171 H 146 H (75-99) mg/dL 02/14/18 02/14/18 02/14/18 Range/Units 06:23 10:59 17:10 WBC 13.6 H (3.8-10.6) k/uL RBC 3.47 L (3.80-5.40) m/uL Hgb 11.1 L (11.4-16.0) gm/dL RDW 15.7 H (11.5-15.5) % Neutrophils # 11.7 H (1.3-7.7) k/uL Sodium (137-145) mmol/L Potassium (3.5-5.1) mmol/L Chloride (98-107) mmol/L BUN (7-17) mg/dL Glucose (74-99) mg/dL POC Glucose (mg/dL) 167 H 196 H (75-99) mg/dL Assessment and Plan Assessment: postop day 2 PEG tube placement Plan: Advance tube feeds as tolerated to goal. Will sign off, please feel free to contact with any further concerns
[2018-02-14] MEDS ORDERED: QUEtiapine 100 MG TAB PEG/G-TUBE SCH (21:00)
[2018-02-14] MEDS: LISINOPRIL 2.5 MG TAB PEG/G-TUBE SCH (22:15)
[2018-02-14] MEDS: ATENOLOL 50 MG TAB PEG/G-TUBE SCH (22:16)
[2018-02-15 00:38] LABS: Glucose,Whole Blood 194 mg/dL (75-99)
[2018-02-15] MEDS: PIPERACILLIN-TAZOBACTAM 3.375 GM in SODIUM CHLORIDE 0.9% 100 ML IVPB SCH ×3 (06:06→22:13)
[2018-02-15 06:41] LABS: Glucose,Whole Blood 217 mg/dL (75-99)
[2018-02-15] MEDS: amLODIPine 5 MG TAB PEG/G-TUBE SCH (07:23)
[2018-02-15] MEDS: ATENOLOL 50 MG TAB PEG/G-TUBE SCH (07:23)
[2018-02-15] MEDS: LISINOPRIL 2.5 MG TAB PEG/G-TUBE SCH ×2 (07:23→22:14)
[2018-02-15] MEDS: ALLOPURINOL 300 MG TAB PO SCH (07:23)
[2018-02-15] MEDS: FAMOTIDINE 20 MG/2 ML VIAL IV SCH (07:23)
[2018-02-15] MEDS: LACTULOSE 20 GM/30 ML CUP PEG/G-TUBE SCH ×3 (07:24→22:14)
[2018-02-15] MEDS: CHOLECALCIFEROL 1,000 UNIT TAB PEG/G-TUBE SCH (07:24)
[2018-02-15 07:51] LABS: Glucose,Whole Blood 188 mg/dL (75-99)
[2018-02-15 08:10] LABS: Calcium 9.6 mg/dL (8.4-10.2); Potassium 3.3 mmol/L (3.5-5.1)
[2018-02-15] MEDS ORDERED: cloNIDine 0.1 MG/24HR PATCH TRANSDERM SCH (10:15)
[2018-02-15] MEDS ORDERED: INSULIN ASPART 100 UNIT/ML 1 ML 10 ML VIAL SQ SCH (10:15)
--- NOTE | 2018-02-15 10:39 | XR ---
EXAMINATION TYPE: XR chest 1V DATE OF EXAM: 02/15/2018 CLINICAL HISTORY: Difficulty breathing progress study. TECHNIQUE: Single AP portable upright view of the chest is obtained. COMPARISON: Chest x-ray from 2 days earlier FINDINGS: There is persistent cardiomegaly with atherosclerotic thoracic aorta. There is interval im provement in central vascular congestion. Background chronic parenchymal changes seen without [place] focal airspace opacity, pleural effusion, or pneumothorax. Osseous structures are demineraliz ed. IMPRESSION: Cardiomegaly with improved central vascular congestion consistent with resolving CHF exac erbation.
[2018-02-15] MEDS: LACTATED RINGERS 1,000 ML IV SCH (11:29)
[2018-02-15] MEDS: SODIUM CHLORIDE 0.9% 1,000 ML IV SCH ×2 (11:53→22:14)
[2018-02-15 12:05] LABS: Glucose,Whole Blood 233 mg/dL (75-99)
[2018-02-15] MEDS: INSULIN ASPART 100 UNIT/ML 1 ML 10 ML VIAL SQ SCH ×2 (12:14→18:11)
[2018-02-15] MEDS ORDERED: POTASSIUM BICARBONATE/CIT AC 20 MEQ TABLET.EFF PO ONE (12:19)
[2018-02-15] MEDS: LEVOTHYROXINE IVP 100 MCG/5 ML VIAL IV SCH (16:24)
[2018-02-15 17:26] LABS: Glucose,Whole Blood 190 mg/dL (75-99)
--- NOTE | 2018-02-15 19:29 | P.PN ---
Subjective Progress Note Date: 02/15/18 This is a 52 years old female with past medical history significant for stroke in 2017 presents to the emergency department with new onset weakness and left- sided paralysis. Patient is nonverbal and had historian as her son who lives at home with her along with her . Son reported that his mother started having worsening weakness on evening and Saturday morning she developed left sided paralysis but the son attributed that the paralysis due to recent 2 doses of Zithromax as he studied side effects for Zithromax over the Internet and found out that it can cause stroke similar symptoms and decided to keep his mother at home on Saturday patient continued to decline and he decided to bring her into the hospital but she was difficult to handle as he did not call EMS and decided to bring her to the hospital and his own car in the emergency patient was nonverbal and does not follow command have left-sided weakness with left facial droop and was out of window for TPA given the late onset of symptoms. Patient in the emergency department received CT scan of the head which showed multiple lacunar infarcts admitted to the floor with therapeutic INR and received appropriate therapy 02/10: Patient is aphasic from previous stroke. Small amount of movement to left leg but no movement of left arm. Neurology has recommended MRA/MRI and EEG. Patient was not able to be still for MRI. Son has refused ativan and xanax as she gets the opposite effect desired. EDI requested. Cardiology is on consult. Sherman in place. Patient needs swallow eval by speech. She did cough with spoon of water. She is usually wheelchair bound and can stand to pivot. We will add and IV Benadryl to help with sleep this evening. A1c is pending. Family states the patient is a DO NOT RESUSCITATE. 02/11: Patient remains very lethargic but becomes aggressive with moving her in bed. SHe pulled her sherman out last pm. She is unable to follow commands. Patient received Benadryl last pm and slept last night. BP is elevated and catapres patch added. Homocysteine 13, triglycerides 94, cholesterol 182, LDL 136, HDL 31. Cardiology is following. They do not feel EDI is necessary as it will not change treatment. Recommends Plavix and then Eliquis verses coumadin. At this point, patient is NPO. Speech therapy has evaluated patient is unable to follow any commands. Long discussion with the patient's son, Gautam and patient's . Son is agreeable for aspirin. He is very concerned because she apparently has had some bleeding since she received 1 dose of aspirin yesterday. Family would like to pursue PEG tube placement and consult with Dr. Valle has been placed. They would like patient to go to subacute rehab at [facility] and we are planning for discharge most likely on Saturday or Saturday. 02/12: Patient has been afebrile, blood pressure this morning is 169/97. We made medication changes yesterday which included an nitro patch and Catapres patch. All oral medications are on hold as patient is nothing by mouth and failed swallow evaluation. Depressed patch will be increased dose. Patient was seen by Dr. Valle and scheduled PEG tube placement since afternoon. Patient was very agitated during the night and required an extra dose of Benadryl at 2 AM. Patient will be transferred to the [facility] floor with telemetry today. We are planning for discharge to [facility] on Saturday as they need time to obtain supplies for PEG tube feeding. Cardiology is planning on [facility] for chronic A. fib. MRI of the brain revealed evolving acute infarct in the posterior right frontal lobe from level of the mello radiata down to the posterior aspect of the posterior limb right internal capsule and posterior aspect right basal ganglia. Background moderate diffuse cerebral atrophy and moderate to advanced chronic small vessel ischemic change with progression since 2010. MRA of the head and neck was a suboptimal study without obvious focal aneurysm at level [place] of [place]. Suboptimal study without obvious significant focal stenosis in the visualized portion of the common or internal carotid arteries with particular attention to the carotid bulbs. EEG is abnormal due to presence of generalized slowing of the background rhythm mostly in the theta range consistent with mild encephalopathy. Sharp wave activity could be consistent with reduced seizure threshold. 02/13 PEG placement was performed yesterday, patient is still confused, no verbal communication this time, patient seems to be uncomfortable, bladder seems to be full on examination, were going to obtain bladder scan postvoid residual with Sherman to be placed over 250 patient has some cough, chest x-ray to be performed, suspect aspiration pneumonitis leukocytosis noted 16.6 MAXIMUM TEMPERATURE at 98.2 and as low as 96.3 is when is at bedside no current concerns , blood pressure is better controlled between 150-167 most oral medications will be started today for blood pressure as well as for Seroquel. Patient has been sleep deprived for the past for 5 days since admission. PEG feedings to be initiated today, dietary consult. Discharge planning skilled ECF expected 02/14: Patient is now seen on the [facility] floor. She is receiving PEG tube feedings at 30 ML's per hour with goal of 65. She is also on 30 mL of water every 4 hours. She has hypoactive bowel sounds and no bowel movement documented since admission. Lactulose will be added. Patient's is at bedside and questions have been answered. She has been afebrile, vital signs are stable, pulse ox is 100% on 2 L nasal cannula. Potassium will be replaced. Patient is currently on Zosyn We are still planning on discharge to ECF on Saturday. 02/15: Patient is receiving PEG tube feedings at 30 mi./h with a goal of 65. She is getting water every 4 hours. Patient has normal bowel sounds at this time and has one bowel movement. Patient continues to be confused and unable to answer questions appropriately. She did have some sinus positives throughout the night and cardiology was consult. Potassium is 3.3 which we will replace. WBC 13.6 hemoglobin 11.1 Review Of Systems: unable to obtain due to mental status changes. Objective - Vital Signs Vital signs: Vital Signs Temp 97.4 F L 02/15/18 12:41 Pulse 80 02/15/18 12:41 Resp 18 02/15/18 12:41 BP 147/76 02/15/18 12:41 Pulse Ox 97 02/15/18 12:41 Intake & Output 02/15/18 02/15/18 02/16/18 06:59 18:59 06:59 Intake Total 640 580 Balance 640 580 Weight 91.5 kg 92.5 kg Intake: IV 60 Sodium Chloride 0.9% 1, 60 000 ml @ 20 mls/hr IV . Q24H SUSAN Rx#:[id number] Intake, IV Titration 100 100 Amount Piperacillin-Tazobactam 3 100 100 .375 gm In Sodium Chloride 0.9% 100 ml @ 25 mls/hr IVPB Q8H SUSAN Rx#: [id number] Oral 0 Tube Feeding 480 420 Other 60 Other: Voiding Method Diaper Diaper Incontinent Incontinent # Voids 1 2 # Bowel Movements 1 1 - Constitutional Constitutional Comment(s): Patient is resting in bed appears comfortable General appearance: Present: average body habitus, no acute distress - EENT Eyes: Present: EOMI, PERRLA ENT: Present: NA/AT, normal oropharynx. Absent: thrush - Neck Neck: Present: normal ROM. Absent: lymphadenopathy - Respiratory Respiratory: bilateral: diminished, negative: dullness, rales, rhonchi, wheezing - Cardiovascular Rhythm: regular Heart sounds: normal: S1, S2 Abnormal Heart Sounds: Present: systolic murmur. Absent: rub, click - Gastrointestinal General gastrointestinal: Present: normal bowel sounds, soft. Absent: organomegaly, tenderness, ventral hernia - Integumentary Integumentary: Present: normal, normal turgor - Neurologic Neurologic: Present: CNII-XII intact - Musculoskeletal Musculoskeletal: Present: gait normal, generalized weakness - Psychiatric Psychiatric Comment(s): She was unable to follow commands. Psychiatric: Absent: A&O x's 3, appropriate affect, intact judgment & insight - Labs CBC & Chem 7: 02/14/18 06:23 02/15/18 07:25 Labs: Abnormal Lab Results - Last 24 Hours (Table) 02/15/18 02/15/18 02/15/18 Range/Units 00:03 06:22 07:25 Sodium 148 H (137-145) mmol/L Potassium 3.3 L (3.5-5.1) mmol/L Chloride 119 H (98-107) mmol/L BUN 45 H (7-17) mg/dL Creatinine 1.13 H (0.52-1.04) mg/dL Glucose 190 H (74-99) mg/dL POC Glucose (mg/dL) 194 H 217 H (75-99) mg/dL 02/15/18 02/15/18 02/15/18 Range/Units 07:49 12:03 17:24 Sodium (137-145) mmol/L Potassium (3.5-5.1) mmol/L Chloride (98-107) mmol/L BUN (7-17) mg/dL Creatinine (0.52-1.04) mg/dL Glucose (74-99) mg/dL POC Glucose (mg/dL) 188 H 233 H 190 H (75-99) mg/dL Assessment and Plan Plan: 1. 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 Neurology consult is appreciated. MRA and MRI EEG as above. Cardiology consult appreciated. No plan for EDI. Son requested Ativan, Xanax and Haldol not be used. PT, OT and speech therapy. Patient failed swallow eval. continue eliquis. Peg tube placement with Dr. Valle performed February 12, 2018 feeding tube treatments by dietary. Pressures to be maintained at greater than 140 systolic. 2. Chronic atrial fibrillation on chronic Coumadin. Continue eliquis and atenolol 3. Aspiration pneumonia suspected, completely nothing by mouth with cough and leukocytosis, chest x-ray to be done, start Zosyn. 3. History of CAD status post PCI back in 1982, continue aspirin this in the pill amlodipine Imdur clonidine 4. Hypertension emergency and hypertensive cardiovascular disease. Due to hypotension, Catapres changed to 0.1 patch, Tenormin 12.5 mg daily, amlodipine 5 mg daily, DC nitroglycerin patch 5. History of CVA in 2010. Patient failed treatment on Coumadin and now on eliquis. 6. Gout, chronic. Continue allopurinol 7. Vascular dementia. 8. Severe aortic valve stenosis with severe pulmonary hypertension. 9. Hypothyroidism. Synthroid 100 g orally once every day. 10. GI prophylaxis. Pepcid. 11. DVT prophylaxis. Eliquis. 12. 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 13. Hypokalemia, potassium bicarbonate 40 mg PEG tube once CODE STATUS: No code Discharge plan: Subacute rehab at [facility] on Saturday. Social work is following. Impression and plan of care have been directed as dictated by the signing physician. Mackenzie Dailey nurse practitioner acting as scribe for signing physician.
[2018-02-15] MEDS ORDERED: QUEtiapine 25 MG TAB PEG/G-TUBE SCH (21:00)
[2018-02-16 00:14] LABS: Glucose,Whole Blood 213 mg/dL (75-99)
[2018-02-16] MEDS: INSULIN ASPART 100 UNIT/ML 1 ML 10 ML VIAL SQ SCH ×4 (00:16→18:03)
[2018-02-16] MEDS: PIPERACILLIN-TAZOBACTAM 3.375 GM in SODIUM CHLORIDE 0.9% 100 ML IVPB SCH ×3 (05:23→19:49)
[2018-02-16 05:48] LABS: Glucose,Whole Blood 141 mg/dL (75-99)
[2018-02-16 07:36] LABS: Glucose,Whole Blood 142 mg/dL (75-99)
[2018-02-16] MEDS: ALLOPURINOL 300 MG TAB PO SCH (08:43)
[2018-02-16] MEDS: amLODIPine 5 MG TAB PEG/G-TUBE SCH (08:43)
[2018-02-16] MEDS: LACTULOSE 20 GM/30 ML CUP PEG/G-TUBE SCH ×2 (08:43→19:49)
[2018-02-16] MEDS: LISINOPRIL 2.5 MG TAB PEG/G-TUBE SCH ×2 (08:43→19:49)
[2018-02-16] MEDS: CHOLECALCIFEROL 1,000 UNIT TAB PEG/G-TUBE SCH (08:43)
[2018-02-16] MEDS: FAMOTIDINE 20 MG/2 ML VIAL IV SCH (08:44)
[2018-02-16] MEDS ORDERED: ATENOLOL 12.5 MG TAB PEG/G-TUBE SCH (09:00)
[2018-02-16 11:37] LABS: Glucose,Whole Blood 178 mg/dL (75-99)
[2018-02-16] MEDS: SODIUM CHLORIDE 0.9% 1,000 ML IV SCH (12:20)
--- NOTE | 2018-02-16 13:27 | PN ---
PROGRESS NOTE Mrs. Coates is an 82-year-old female with a history of CVA and history of atrial fibrillation who presented with recurrent CVA and was on Coumadin, has been switched to Eliquis. She remains confused, alert, no apparent distress. She had episode of hypotension. She is on amlodipine 5 mg daily, Eliquis 5 mg twice a day, atenolol 12 and 0.5 mg daily, clonidine 0.1 patch, lisinopril 2.5 mg twice a day. PHYSICAL EXAMINATION: Blood pressure running in the 130s to 160s with a heart rate in the 70s. LUNGS: Clear. Heart irregularly irregular, S1, S2. No S3. No rub. ABDOMEN: Soft. PEG tube in place. Extremities no significant edema. IMPRESSION: 1. Cerebrovascular accident. 2. Dementia. 3. Chronic persistent atrial fibrillation anticoagulated with Eliquis. 4. History of prior stroke. RECOMMENDATIONS: From the cardiac standpoint, we will continue present therapy. Adjust her medical regimen depending on her blood pressure. The plan [facility] transfer [facility]. We will see on as needed basis. Please feel a free to call us for any questions. MMODL / IJN: [id number] /
[2018-02-16] MEDS: LEVOTHYROXINE IVP 100 MCG/5 ML VIAL IV SCH (16:20)
--- NOTE | 2018-02-16 16:51 | P.PN ---
Subjective Progress Note Date: 02/16/18 his is a 52 years old female with past medical history significant for stroke in 2017 presents to the emergency department with new onset weakness and left- sided paralysis. Patient is nonverbal and had historian as her son who lives at home with her along with her . Son reported that his mother started having worsening weakness on evening and Saturday morning she developed left sided paralysis but the son attributed that the paralysis due to recent 2 doses of Zithromax as he studied side effects for Zithromax over the Internet and found out that it can cause stroke similar symptoms and decided to keep his mother at home on Saturday patient continued to decline and he decided to bring her into the hospital but she was difficult to handle as he did not call EMS and decided to bring her to the hospital and his own car in the emergency patient was nonverbal and does not follow command have left-sided weakness with left facial droop and was out of window for TPA given the late onset of symptoms. Patient in the emergency department received CT scan of the head which showed multiple lacunar infarcts admitted to the floor with therapeutic INR and received appropriate therapy 02/10: Patient is aphasic from previous stroke. Small amount of movement to left leg but no movement of left arm. Neurology has recommended MRA/MRI and EEG. Patient was not able to be still for MRI. Son has refused ativan and xanax as she gets the opposite effect desired. EDI requested. Cardiology is on consult. Sherman in place. Patient needs swallow eval by speech. She did cough with spoon of water. She is usually wheelchair bound and can stand to pivot. We will add and IV Benadryl to help with sleep this evening. A1c is pending. Family states the patient is a DO NOT RESUSCITATE. 02/11: Patient remains very lethargic but becomes aggressive with moving her in bed. SHe pulled her sherman out last pm. She is unable to follow commands. Patient received Benadryl last pm and slept last night. BP is elevated and catapres patch added. Homocysteine 13, triglycerides 94, cholesterol 182, LDL 136, HDL 31. Cardiology is following. They do not feel EDI is necessary as it will not change treatment. Recommends Plavix and then Eliquis verses coumadin. At this point, patient is NPO. Speech therapy has evaluated patient is unable to follow any commands. Long discussion with the patient's son, Gautam and patient's . Son is agreeable for aspirin. He is very concerned because she apparently has had some bleeding since she received 1 dose of aspirin yesterday. Family would like to pursue PEG tube placement and consult with Dr. Valle has been placed. They would like patient to go to subacute rehab at [facility] and we are planning for discharge most likely on Saturday or Saturday. 02/12: Patient has been afebrile, blood pressure this morning is 169/97. We made medication changes yesterday which included an nitro patch and Catapres patch. All oral medications are on hold as patient is nothing by mouth and failed swallow evaluation. Depressed patch will be increased dose. Patient was seen by Dr. Valle and scheduled PEG tube placement since afternoon. Patient was very agitated during the night and required an extra dose of Benadryl at 2 AM. Patient will be transferred to the [facility] floor with telemetry today. We are planning for discharge to [facility] on Saturday as they need time to obtain supplies for PEG tube feeding. Cardiology is planning on [facility] for chronic A. fib. MRI of the brain revealed evolving acute infarct in the posterior right frontal lobe from level of the mello radiata down to the posterior aspect of the posterior limb right internal capsule and posterior aspect right basal ganglia. Background moderate diffuse cerebral atrophy and moderate to advanced chronic small vessel ischemic change with progression since 2010. MRA of the head and neck was a suboptimal study without obvious focal aneurysm at level [place] of [place]. Suboptimal study without obvious significant focal stenosis in the visualized portion of the common or internal carotid arteries with particular attention to the carotid bulbs. EEG is abnormal due to presence of generalized slowing of the background rhythm mostly in the theta range consistent with mild encephalopathy. Sharp wave activity could be consistent with reduced seizure threshold. 02/13 PEG placement was performed yesterday, patient is still confused, no verbal communication this time, patient seems to be uncomfortable, bladder seems to be full on examination, were going to obtain bladder scan postvoid residual with Sherman to be placed over 250 patient has some cough, chest x-ray to be performed, suspect aspiration pneumonitis leukocytosis noted 16.6 MAXIMUM TEMPERATURE at 98.2 and as low as 96.3 is when is at bedside no current concerns , blood pressure is better controlled between 150-167 most oral medications will be started today for blood pressure as well as for Seroquel. Patient has been sleep deprived for the past for 5 days since admission. PEG feedings to be initiated today, dietary consult. Discharge planning skilled ECF expected 02/14: Patient is now seen on the [facility] floor. She is receiving PEG tube feedings at 30 ML's per hour with goal of 65. She is also on 30 mL of water every 4 hours. She has hypoactive bowel sounds and no bowel movement documented since admission. Lactulose will be added. Patient's is at bedside and questions have been answered. She has been afebrile, vital signs are stable, pulse ox is 100% on 2 L nasal cannula. Potassium will be replaced. Patient is currently on Zosyn We are still planning on discharge to ECF on Saturday. 02/15: Patient is receiving PEG tube feedings at 30 mi./h with a goal of 65. She is getting water every 4 hours. Patient has normal bowel sounds at this time and has one bowel movement. Patient continues to be confused and unable to answer questions appropriately. She did have some sinus positives throughout the night and cardiology was consult. Potassium is 3.3 which we will replace. WBC 13.6 hemoglobin 11.1 02/16 patient examined bedside appears to be much more awake than yesterday. Son and bedside all answers questions uncertain. Patient is unable to complicate or participate in conversation. Son seems to understand patient's prognosis. He is concerned that atenolol is worsening patient's mental status and sedating her. Patient is on seroquel for the past 2 years on 100 mg daily at bedtime. Decreased Seroquel to 50 mg daily at bedtime. Atenolol decreased to 12.5 mg at bedtime. Unclear why metoprolol was switched to atenolol. Vitals are stable with pulse ranging from 68-90. Patient is saturating well on 98% on 2 L. There was a concern this morning that patient was not able to tolerate feeding and the rate of tube feeding was decreased. Family was told if patient's mental status continues to do tolerate will consider hospice or comfort care Review Of Systems: unable to obtain due to mental status changes. Objective - Vital Signs Vital signs: Vital Signs Temp 98 F 02/16/18 12:14 Pulse 68 02/16/18 14:42 Resp 18 02/16/18 14:42 BP 164/81 02/16/18 12:14 Pulse Ox 98 02/16/18 12:14 Intake & Output 02/15/18 02/16/18 02/16/18 18:59 06:59 18:59 Intake Total 580 900 334 Output Total 400 Balance 580 900 -66 Weight 92.5 kg 93.1 kg Intake: IV 220 Sodium Chloride 0.9% 1, 220 000 ml @ 20 mls/hr IV . Q24H SUSAN Rx#:[id number] Intake, IV Titration 100 Amount Piperacillin-Tazobactam 3 100 .375 gm In Sodium Chloride 0.9% 100 ml @ 25 mls/hr IVPB Q8H SUSAN Rx#: [id number] Tube Feeding 420 680 334 Other 60 Output: Urine 400 Other: Voiding Method Diaper Diaper Diaper Incontinent Incontinent Incontinent # Voids 2 2 2 # Bowel Movements 1 - Exam - Constitutional Constitutional Comment(s): Patient is resting in bed appears comfortable, is aphasic unable to comprehend General appearance: Present: average body habitus, no acute distress - EENT Eyes: Present: EOMI, PERRLA ENT: Present: NA/AT, normal oropharynx. Absent: thrush - Neck Neck: Present: normal ROM. Absent: lymphadenopathy - Respiratory Respiratory: bilateral: diminished, negative: dullness, rales, rhonchi, wheezing - Cardiovascular Rhythm: regular Heart sounds: normal: S1, S2 Abnormal Heart Sounds: Present: systolic murmur. Absent: rub, click - Gastrointestinal General gastrointestinal: Present: normal bowel sounds, soft. Absent: organomegaly, tenderness, ventral hernia . GJ in place - Integumentary Integumentary: Present: normal, normal turgor - Neurologic Neurologic: Present: CNII-XII intact - Musculoskeletal Musculoskeletal: Present: generalized weakness - Psychiatric Psychiatric Comment(s): She was unable to follow commands. Psychiatric: Absent: A&O x's 3, appropriate affect, intact judgment & insight - Labs CBC & Chem 7: 02/14/18 06:23 02/15/18 07:25 Labs: Abnormal Lab Results - Last 24 Hours (Table) 02/15/18 02/16/18 02/16/18 Range/Units 17:24 00:12 05:37 POC Glucose (mg/dL) 190 H 213 H 141 H (75-99) mg/dL 02/16/18 02/16/18 Range/Units 07:33 11:35 POC Glucose (mg/dL) 142 H 178 H (75-99) mg/dL Assessment and Plan Plan: 1. 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 Neurology consult is appreciated. MRA and MRI EEG as above. Cardiology consult appreciated. No plan for EDI. Son requested Ativan, Xanax and Haldol not be used. PT, OT and speech therapy. Patient failed swallow eval. continue eliquis. Peg tube placement with Dr. Valle performed February 12, 2018 feeding tube treatments by dietary. Pressures to be maintained at greater than 140 systolic. No significant improvement in mental status. Patient appears to be more sedated than usual. Seroquel dose reduced 2. Chronic atrial fibrillation on chronic Coumadin. Failed on Coumadin. Continue eliquis and atenolol. Atenolol dose reduced due to bradycardia 3. Aspiration pneumonia suspected, completely nothing by mouth with cough and leukocytosis, chest x-ray to be done, continue Zosyn. 3. History of CAD status post PCI back in 1982, continue aspirin this in the pill amlodipine Imdur clonidine 4. Hypertension emergency and hypertensive cardiovascular disease. Due to hypotension, Catapres changed to 0.1 patch, Tenormin 12.5 mg daily, amlodipine 5 mg daily, DC nitroglycerin patch 5. History of CVA in 2010. Patient failed treatment on Coumadin and now on eliquis. 6. Gout, chronic. Continue allopurinol 7. Vascular dementia. 8. Severe aortic valve stenosis with severe pulmonary hypertension. 9. Hypothyroidism. Synthroid 100 g orally once every day. 10. GI prophylaxis. Pepcid. 11. DVT prophylaxis. Eliquis. 12. 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 13. Hypokalemia, potassium bicarbonate 40 mg PEG tube once CODE STATUS: No code Discharge plan: Subacute rehab at [facility] once stabilized. Social work is following.
[2018-02-16 17:21] LABS: Glucose,Whole Blood 216 mg/dL (75-99)
[2018-02-16] MEDS: ATENOLOL 12.5 MG TAB PEG/G-TUBE SCH (18:04)
[2018-02-16] MEDS: QUEtiapine 50 MG TAB PEG/G-TUBE SCH (19:51)
[2018-02-17 00:13] LABS: Glucose,Whole Blood 198 mg/dL (75-99)
[2018-02-17] MEDS: INSULIN ASPART 100 UNIT/ML 1 ML 10 ML VIAL SQ SCH ×4 (00:28→17:30)
[2018-02-17] MEDS: PIPERACILLIN-TAZOBACTAM 3.375 GM in SODIUM CHLORIDE 0.9% 100 ML IVPB SCH ×3 (03:41→20:17)
[2018-02-17 05:51] LABS: Glucose,Whole Blood 227 mg/dL (75-99)
[2018-02-17 06:58] LABS: Glucose,Whole Blood 221 mg/dL (75-99)
[2018-02-17 08:36] LABS: Anisocytosis Slight; Basophils # (A) 0.1 k/uL (0-0.2); Basophils % (A) 0 %; Eosinophils # (A) 0.6 k/uL (0-0.7); Eosinophils % (A) 5 %; HCT 37.3 % (34.0-46.0); HGB 11.4 gm/dL (11.4-16.0); Hypochromasia Moderate; Lymphocytes # (A) 1.5 k/uL (1.0-4.8); Lymphocytes % (A) 12 %; MCH 30.5 pg (25.0-35.0); MCHC 30.6 g/dL (31.0-37.0); MCV 99.5 fL (80.0-100.0); Macrocytosis Slight; Mean Platelet Volume 7.7; Monocytes # (A) 0.5 k/uL (0-1.0); Monocytes % (A) 4 %; Neutrophils % (A) 78 %; Platelet Count 232 k/uL (150-450); RBC 3.75 m/uL (3.80-5.40); WBC 12.8 k/uL (3.8-10.6)
[2018-02-17 08:43] LABS: Albumin 2.9 g/dL (3.5-5.0); Potassium 3.8 mmol/L (3.5-5.1); Total Bilirubin 1.7 mg/dL (0.2-1.3); Total Protein 6.2 g/dL (6.3-8.2)
[2018-02-17] MEDS: APIXABAN 5 MG TAB PEG/G-TUBE SCH ×2 (08:53→20:18)
[2018-02-17] MEDS: ALLOPURINOL 300 MG TAB PO SCH (08:53)
[2018-02-17] MEDS: FAMOTIDINE 20 MG/2 ML VIAL IV SCH (08:53)
[2018-02-17] MEDS: amLODIPine 5 MG TAB PEG/G-TUBE SCH (08:53)
[2018-02-17] MEDS: LISINOPRIL 2.5 MG TAB PEG/G-TUBE SCH ×2 (08:53→20:18)
[2018-02-17] MEDS: LACTULOSE 20 GM/30 ML CUP PEG/G-TUBE SCH ×2 (08:53→20:05)
--- NOTE | 2018-02-17 09:06 | CDI ---
Last Revision, February 2017 Documentation Clarification Form Date: 02/18/18 From: Scarlett Perez RN Admit Date: 02/08/2018 2:17:00 PM Patient Name: Margaret Coates Visit Number: [id number] ATTENTION: The Clinical Documentation Specialists (CDI) and [facility] Coding Staff appreciate your assistance in clarifying documentation. Please respond to the clarification below the line at the bottom and electronically sign. The CDI & [facility] Coding staff will review the response and follow-up if needed. Please note: Queries are made part of the Legal Health Record. If you have any questions, please contact the author of this message via ITS. Moshe Hilario MD, Encephalopathy is documented in the PN 02/12 - 02/16 Patient admitted with CVA, dehydration, acute alteration in mental status, hyperbilirubinemia, and elevated trops. History/Risk factors: a fib, CVA/TIA, dementia, HTN Clinical Indicators: EEG: abnormal due to the presence of generalized slowing of the background rhythm, mostly in the theta range. this is consistent with mild encephalopathy. CT/MRI Brain: no acute intracranial abnormality, moderate degenerative change , multiple lacunar infarcts, acute on chronic sinus mucosal disease. Vitals on admission: T 98/1, P 89, R 18, 186/135, 94% RA Labs on admission: WBC 15.3, PT 18.2, INR 2.0, C02 21, BUN 23, CR 1.08, HGB A1C 7.3 H&P 02/09: altered mental status Consult 02/10: confused. 02/15 Confused unable to answer questions appropriately. Treatment: IV Bolus: .9 500ml x 1 Medication: Piperacillin, Norvasc, Catapres Consults: Neurology In your professional opinion, can you please clarify the specific type of encephalopathy, if known? Anoxic Encephalopathy Hypertensive Encephalopathy Metabolic Encephalopathy Toxic Encephalopathy Other, please specify Unable to determine MTDD
[2018-02-17] MEDS: CHOLECALCIFEROL 1,000 UNIT TAB PEG/G-TUBE SCH (09:08)
[2018-02-17 11:23] LABS: Glucose,Whole Blood 255 mg/dL (75-99)
[2018-02-17] MEDS ORDERED: APIXABAN 5 MG TAB PO SCH (13:45)
[2018-02-17 14:58] VITALS: BMI 28.6
[2018-02-17] MEDS ORDERED: cloNIDine 0.2 MG/24HR PATCH TRANSDERM SCH (15:00)
[2018-02-17] MEDS ORDERED: cloNIDine 0.1 MG/24HR PATCH TRANSDERM SCH (15:00)
[2018-02-17] MEDS: ATENOLOL 12.5 MG TAB PEG/G-TUBE SCH (15:01)
--- NOTE | 2018-02-17 15:52 | P.PN ---
Subjective Progress Note Date: 02/17/18 his is a 52 years old female with past medical history significant for stroke in 2017 presents to the emergency department with new onset weakness and left- sided paralysis. Patient is nonverbal and had historian as her son who lives at home with her along with her . Son reported that his mother started having worsening weakness on evening and Saturday morning she developed left sided paralysis but the son attributed that the paralysis due to recent 2 doses of Zithromax as he studied side effects for Zithromax over the Internet and found out that it can cause stroke similar symptoms and decided to keep his mother at home on Saturday patient continued to decline and he decided to bring her into the hospital but she was difficult to handle as he did not call EMS and decided to bring her to the hospital and his own car in the emergency patient was nonverbal and does not follow command have left-sided weakness with left facial droop and was out of window for TPA given the late onset of symptoms. Patient in the emergency department received CT scan of the head which showed multiple lacunar infarcts admitted to the floor with therapeutic INR and received appropriate therapy 02/10: Patient is aphasic from previous stroke. Small amount of movement to left leg but no movement of left arm. Neurology has recommended MRA/MRI and EEG. Patient was not able to be still for MRI. Son has refused ativan and xanax as she gets the opposite effect desired. EDI requested. Cardiology is on consult. Sherman in place. Patient needs swallow eval by speech. She did cough with spoon of water. She is usually wheelchair bound and can stand to pivot. We will add and IV Benadryl to help with sleep this evening. A1c is pending. Family states the patient is a DO NOT RESUSCITATE. 02/11: Patient remains very lethargic but becomes aggressive with moving her in bed. SHe pulled her sherman out last pm. She is unable to follow commands. Patient received Benadryl last pm and slept last night. BP is elevated and catapres patch added. Homocysteine 13, triglycerides 94, cholesterol 182, LDL 136, HDL 31. Cardiology is following. They do not feel EDI is necessary as it will not change treatment. Recommends Plavix and then Eliquis verses coumadin. At this point, patient is NPO. Speech therapy has evaluated patient is unable to follow any commands. Long discussion with the patient's son, Gautam and patient's . Son is agreeable for aspirin. He is very concerned because she apparently has had some bleeding since she received 1 dose of aspirin yesterday. Family would like to pursue PEG tube placement and consult with Dr. Valle has been placed. They would like patient to go to subacute rehab at [facility] and we are planning for discharge most likely on Saturday or Saturday. 02/12: Patient has been afebrile, blood pressure this morning is 169/97. We made medication changes yesterday which included an nitro patch and Catapres patch. All oral medications are on hold as patient is nothing by mouth and failed swallow evaluation. Depressed patch will be increased dose. Patient was seen by Dr. Valle and scheduled PEG tube placement since afternoon. Patient was very agitated during the night and required an extra dose of Benadryl at 2 AM. Patient will be transferred to the [facility] floor with telemetry today. We are planning for discharge to [facility] on Saturday as they need time to obtain supplies for PEG tube feeding. Cardiology is planning on [facility] for chronic A. fib. MRI of the brain revealed evolving acute infarct in the posterior right frontal lobe from level of the mello radiata down to the posterior aspect of the posterior limb right internal capsule and posterior aspect right basal ganglia. Background moderate diffuse cerebral atrophy and moderate to advanced chronic small vessel ischemic change with progression since 2010. MRA of the head and neck was a suboptimal study without obvious focal aneurysm at level [place]. Suboptimal study without obvious significant focal stenosis in the visualized portion of the common or internal carotid arteries with particular attention to the carotid bulbs. EEG is abnormal due to presence of generalized slowing of the background rhythm mostly in the theta range consistent with mild encephalopathy. Sharp wave activity could be consistent with reduced seizure threshold. 02/13 PEG placement was performed yesterday, patient is still confused, no verbal communication this time, patient seems to be uncomfortable, bladder seems to be full on examination, were going to obtain bladder scan postvoid residual with Sherman to be placed over 250 patient has some cough, chest x-ray to be performed, suspect aspiration pneumonitis leukocytosis noted 16.6 MAXIMUM TEMPERATURE at 98.2 and as low as 96.3 is when is at bedside no current concerns , blood pressure is better controlled between 150-167 most oral medications will be started today for blood pressure as well as for Seroquel. Patient has been sleep deprived for the past for 5 days since admission. PEG feedings to be initiated today, dietary consult. Discharge planning skilled ECF expected 02/14: Patient is now seen on the [facility] floor. She is receiving PEG tube feedings at 30 ML's per hour with goal of 65. She is also on 30 mL of water every 4 hours. She has hypoactive bowel sounds and no bowel movement documented since admission. Lactulose will be added. Patient's is at bedside and questions have been answered. She has been afebrile, vital signs are stable, pulse ox is 100% on 2 L nasal cannula. Potassium will be replaced. Patient is currently on Zosyn We are still planning on discharge to ECF on Saturday. 02/15: Patient is receiving PEG tube feedings at 30 mi./h with a goal of 65. She is getting water every 4 hours. Patient has normal bowel sounds at this time and has one bowel movement. Patient continues to be confused and unable to answer questions appropriately. She did have some sinus positives throughout the night and cardiology was consult. Potassium is 3.3 which we will replace. WBC 13.6 hemoglobin 11.1 02/16 patient examined bedside appears to be much more awake than yesterday. Son and bedside all answers questions uncertain. Patient is unable to complicate or participate in conversation. Son seems to understand patient's prognosis. He is concerned that atenolol is worsening patient's mental status and sedating her. Patient is on seroquel for the past 2 years on 100 mg daily at bedtime. Decreased Seroquel to 50 mg daily at bedtime. Atenolol decreased to 12.5 mg at bedtime. Unclear why metoprolol was switched to atenolol. Vitals are stable with pulse ranging from 68-90. Patient is saturating well on 98% on 2 L. There was a concern this morning that patient was not able to tolerate feeding and the rate of tube feeding was decreased. Family was told if patient's mental status continues to do tolerate will consider hospice or comfort care 02/17: Patient's blood pressure was high this morning and atenolol increased to 50 mg at bedtime per family wishes and continue on the Catapres patch at 0.1 mg. We are anticipating discharge to [facility] tomorrow. Patient continues to be mostly unresponsive but awake. All questions of the patient's son and are answered at the bedside. Sodium is high today and free water flushes will be doubled to 60 ML's every 4 hours. Review Of Systems: unable to obtain due to mental status changes. Objective - Vital Signs Vital signs: Vital Signs Temp 98.8 F 02/17/18 12:39 Pulse 102 H 02/17/18 12:39 Resp 18 02/17/18 12:39 BP 166/111 02/17/18 12:39 Pulse Ox 98 02/17/18 12:39 Intake & Output 02/16/18 02/17/18 02/17/18 18:59 06:59 18:59 Intake Total 594 1080 620 Output Total 400 1300 Balance 194 -220 620 Weight 93.1 kg 93.1 kg Intake: IV 240 80 Sodium Chloride 0.9% 1, 240 80 000 ml @ 20 mls/hr IV . Q24H SUSAN Rx#:[id number] Intake, IV Titration 100 100 Amount Piperacillin-Tazobactam 3 100 100 .375 gm In Sodium Chloride 0.9% 100 ml @ 25 mls/hr IVPB Q8H SUSAN Rx#: [id number] Tube Feeding 594 740 440 Output: Urine 400 1300 Other: Voiding Method Diaper Diaper Diaper Incontinent Incontinent Incontinent # Voids 3 1 1 - Exam General appearance: average body habitus, no acute distress, patient is resting in bed, family at bedside - EENT Eyes: Reports EOMI, Reports PERRLA, Reports normal apperance, Denies photophobia , Denies scleral icterus ENT: Reports NA/AT, Reports normal oropharynx, Denies thrush, Denies tonsillar exudates Ears: bilateral: normal - Neck Neck: Reports normal ROM, Denies lymphadenopathy, Denies rigidity, Denies stridor, Denies thyromegaly Carotids: bilateral: upstroke delayed Thyroid: bilateral: normal size - Respiratory Respiratory: bilateral: diminished, negative: dullness, rales, rhonchi, wheezing , prolonged expiration, prolonged inspiration - Cardiovascular Rhythm: regularly irregular Heart sounds: normal: S1, S2 Abnormal Heart Sounds: Reports systolic murmur (3/6 in the right upper sternal border radiating to the base of the neck.), Denies rub, Denies click - Gastrointestinal General gastrointestinal: Reports decreased bowel sounds, Reports soft, Denies splenomegaly, Denies tenderness, Denies umbilical hernia, Denies ventral hernia - Integumentary Integumentary: Reports normal, Reports normal turgor, Denies rash, Denies ulcer - Neurologic Neurologic: CNII-XII intact - Musculoskeletal Musculoskeletal: Reports gait normal, Reports generalized weakness - Psychiatric Psychiatric: Denies A&Ox0 Denies appropriate affect, Denies intact judgment & insight, left arm weakness 0/5, left leg weakness, left facial droop. Patient is unable to follow any commands. - Labs CBC & Chem 7: 02/17/18 08:00 02/17/18 08:00 Labs: Abnormal Lab Results - Last 24 Hours (Table) 02/16/18 02/17/18 02/17/18 Range/Units 17:18 00:08 05:50 WBC (3.8-10.6) k/uL RBC (3.80-5.40) m/uL MCHC (31.0-37.0) g/dL RDW (11.5-15.5) % Neutrophils # (1.3-7.7) k/uL Sodium (137-145) mmol/L Chloride (98-107) mmol/L BUN (7-17) mg/dL Glucose (74-99) mg/dL POC Glucose (mg/dL) 216 H 198 H 227 H (75-99) mg/dL Total Bilirubin (0.2-1.3) mg/dL Total Protein (6.3-8.2) g/dL Albumin (3.5-5.0) g/dL 02/17/18 02/17/18 02/17/18 Range/Units 06:55 08:00 08:00 WBC 12.8 H (3.8-10.6) k/uL RBC 3.75 L (3.80-5.40) m/uL MCHC 30.6 L (31.0-37.0) g/dL RDW 16.0 H (11.5-15.5) % Neutrophils # 10.0 H (1.3-7.7) k/uL Sodium 152 H (137-145) mmol/L Chloride 118 H (98-107) mmol/L BUN 38 H (7-17) mg/dL Glucose 240 H (74-99) mg/dL POC Glucose (mg/dL) 221 H (75-99) mg/dL Total Bilirubin 1.7 H (0.2-1.3) mg/dL Total Protein 6.2 L (6.3-8.2) g/dL Albumin 2.9 L (3.5-5.0) g/dL 02/17/ Range/Units 11:21 WBC (3.8-10.6) k/uL RBC (3.80-5.40) m/uL MCHC (31.0-37.0) g/dL RDW (11.5-15.5) % Neutrophils # (1.3-7.7) k/uL Sodium (137-145) mmol/L Chloride (98-107) mmol/L BUN (7-17) mg/dL Glucose (74-99) mg/dL POC Glucose (mg/dL) 255 H (75-99) mg/dL Total Bilirubin (0.2-1.3) mg/dL Total Protein (6.3-8.2) g/dL Albumin (3.5-5.0) g/dL Assessment and Plan Plan: 1. 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 Neurology consult is appreciated. MRA and MRI EEG as above. Cardiology consult appreciated. No plan for EDI. Son requested Ativan, Xanax and Haldol not be used. PT, OT and speech therapy. Patient failed swallow eval. continue eliquis. Peg tube placement with Dr. Valle performed February 12, 2018 feeding tube treatments by dietary. Pressures to be maintained at greater than 140 systolic. 2. Chronic atrial fibrillation on chronic Coumadin. Continue eliquis and atenolol 3. Aspiration pneumonia suspected, completely nothing by mouth with cough and leukocytosis, chest x-ray to be done, continue Zosyn. 3. History of CAD status post PCI back in 1982, continue aspirin this in the pill amlodipine Imdur clonidine 4. Hypertension emergency and hypertensive cardiovascular disease. Catapres 0.1 patch, nitroglycerin patch 0.1, Tenormin 50 mg at bedtime, amlodipine 5 mg daily initiated 5. History of CVA in 2010. Patient failed treatment on Coumadin and now on eliquis. 6. Gout, chronic. Continue allopurinol 7. Vascular dementia. 8. Severe aortic valve stenosis with severe pulmonary hypertension. 9. Hypothyroidism. Synthroid 100 g orally once every day. 10. GI prophylaxis. Pepcid. 11. DVT prophylaxis. Eliquis. 12. 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 CODE STATUS: No code Discharge plan: Subacute rehab at [facility] on Saturday. Social work is following. Impression and plan of care have been directed as dictated by the signing physician. Deanna Kauffman nurse practitioner acting as scribe for signing physician.
[2018-02-17] MEDS: LEVOTHYROXINE IVP 100 MCG/5 ML VIAL IV SCH (16:42)
[2018-02-17 17:14] LABS: Glucose,Whole Blood 238 mg/dL (75-99)
[2018-02-17] MEDS: QUEtiapine 50 MG TAB PEG/G-TUBE SCH (20:18)
[2018-02-17] MEDS ORDERED: ATENOLOL 50 MG TAB PEG/G-TUBE SCH (21:00)
[2018-02-18 00:18] LABS: Glucose,Whole Blood 209 mg/dL (75-99)
[2018-02-18] MEDS: INSULIN ASPART 100 UNIT/ML 1 ML 10 ML VIAL SQ SCH ×4 (00:20→17:51)
[2018-02-18] MEDS: PIPERACILLIN-TAZOBACTAM 3.375 GM in SODIUM CHLORIDE 0.9% 100 ML IVPB SCH ×2 (05:39→12:18)
[2018-02-18 05:48] LABS: Glucose,Whole Blood 211 mg/dL (75-99)
--- NOTE | 2018-02-18 07:54 | P.DS ---
Providers Date of admission: 02/08/18 14:17 Expected date of discharge: 02/18/18 Attending physician: Moshe Mccray Consults: 02/08/18 14:17 Consult Physician Routine Consulting Provider: Kellen Euceda Consult Reason/Comments: CVA Do you want consulting provider notified?: Yes 02/09/18 09:25 Consult Physician Routine Consulting Provider: [facility] Consult Reason/Comments: abnormal troponins Do you want consulting provider notified?: Yes 02/11/18 12:25 Consult Physician Routine Consulting Provider: Jarod Collins Consult Reason/Comments: PEG Do you want consulting provider notified?: Yes 02/11/18 12:34 Consult Physician Routine Consulting Provider: Elyse Valle Consult Reason/Comments: PEG placement Do you want consulting provider notified?: Yes Primary care physician: [facility] Course: This is a 52 years old female with past medical history significant for stroke in 2017 presents to the emergency department with new onset weakness and left- sided paralysis. Patient is nonverbal and had historian as her son who lives at home with her along with her . Son reported that his mother started having worsening weakness on evening and Saturday morning she developed left sided paralysis but the son attributed that the paralysis due to recent 2 doses of Zithromax as he studied side effects for Zithromax over the Internet and found out that it can cause stroke similar symptoms and decided to keep his mother at home on Saturday patient continued to decline and he decided to bring her into the hospital but she was difficult to handle as he did not call EMS and decided to bring her to the hospital and his own car in the emergency patient was nonverbal and does not follow command have left-sided weakness with left facial droop and was out of window for TPA given the late onset of symptoms. Patient in the emergency department received CT scan of the head which showed multiple lacunar infarcts admitted to the floor with therapeutic INR and received appropriate therapy 02/10: Patient is aphasic from previous stroke. Small amount of movement to left leg but no movement of left arm. Neurology has recommended MRA/MRI and EEG. Patient was not able to be still for MRI. Son has refused ativan and xanax as she gets the opposite effect desired. EDI requested. Cardiology is on consult. Sherman in place. Patient needs swallow eval by speech. She did cough with spoon of water. She is usually wheelchair bound and can stand to pivot. We will add and IV Benadryl to help with sleep this evening. A1c is pending. Family states the patient is a DO NOT RESUSCITATE. 02/11: Patient remains very lethargic but becomes aggressive with moving her in bed. SHe pulled her sherman out last pm. She is unable to follow commands. Patient received Benadryl last pm and slept last night. BP is elevated and catapres patch added. Homocysteine 13, triglycerides 94, cholesterol 182, LDL 136, HDL 31. Cardiology is following. They do not feel EDI is necessary as it will not change treatment. Recommends Plavix and then Eliquis verses coumadin. At this point, patient is NPO. Speech therapy has evaluated patient is unable to follow any commands. Long discussion with the patient's son, Gautam and patient's . Son is agreeable for aspirin. He is very concerned because she apparently has had some bleeding since she received 1 dose of aspirin yesterday. Family would like to pursue PEG tube placement and consult with Dr. Valle has been placed. They would like patient to go to subacute rehab at [facility] and we are planning for discharge most likely on Saturday or Saturday. 02/12: Patient has been afebrile, blood pressure this morning is 169/97. We made medication changes yesterday which included an nitro patch and Catapres patch. All oral medications are on hold as patient is nothing by mouth and failed swallow evaluation. Depressed patch will be increased dose. Patient was seen by Dr. Valle and scheduled PEG tube placement since afternoon. Patient was very agitated during the night and required an extra dose of Benadryl at 2 AM. Patient will be transferred to the [facility] floor with telemetry today. We are planning for discharge to [facility] on Saturday as they need time to obtain supplies for PEG tube feeding. Cardiology is planning on eliquis for chronic A. fib. MRI of the brain revealed evolving acute infarct in the posterior right frontal lobe from level of the mello radiata down to the posterior aspect of the posterior limb right internal capsule and posterior aspect right basal ganglia. Background moderate diffuse cerebral atrophy and moderate to advanced chronic small vessel ischemic change with progression since 2010. MRA of the head and neck was a suboptimal study without obvious focal aneurysm at level inupiat of [place]. Suboptimal study without obvious significant focal stenosis in the visualized portion of the common or internal carotid arteries with particular attention to the carotid bulbs. EEG is abnormal due to presence of generalized slowing of the background rhythm mostly in the theta range consistent with mild encephalopathy. Sharp wave activity could be consistent with reduced seizure threshold. 02/13 PEG placement was performed yesterday, patient is still confused, no verbal communication this time, patient seems to be uncomfortable, bladder seems to be full on examination, were going to obtain bladder scan postvoid residual with Sherman to be placed over 250 patient has some cough, chest x-ray to be performed, suspect aspiration pneumonitis leukocytosis noted 16.6 MAXIMUM TEMPERATURE at 98.2 and as low as 96.3 is when is at bedside no current concerns , blood pressure is better controlled between 150-167 most oral medications will be started today for blood pressure as well as for Seroquel. Patient has been sleep deprived for the past for 5 days since admission. PEG feedings to be initiated today, dietary consult. Discharge planning skilled ECF expected 02/14: Patient is now seen on the [facility] floor. She is receiving PEG tube feedings at 30 ML's per hour with goal of 65. She is also on 30 mL of water every 4 hours. She has hypoactive bowel sounds and no bowel movement documented since admission. Lactulose will be added. Patient's is at bedside and questions have been answered. She has been afebrile, vital signs are stable, pulse ox is 100% on 2 L nasal cannula. Potassium will be replaced. Patient is currently on Zosyn We are still planning on discharge to ECF on Saturday. 02/15: Patient is receiving PEG tube feedings at 30 mi./h with a goal of 65. She is getting water every 4 hours. Patient has normal bowel sounds at this time and has one bowel movement. Patient continues to be confused and unable to answer questions appropriately. She did have some sinus positives throughout the night and cardiology was consult. Potassium is 3.3 which we will replace. WBC 13.6 hemoglobin 11.1 02/16 patient examined bedside appears to be much more awake than yesterday. Son and bedside all answers questions uncertain. Patient is unable to complicate or participate in conversation. Son seems to understand patient's prognosis. He is concerned that atenolol is worsening patient's mental status and sedating her. Patient is on seroquel for the past 2 years on 100 mg daily at bedtime. Decreased Seroquel to 50 mg daily at bedtime. Atenolol decreased to 12.5 mg at bedtime. Unclear why metoprolol was switched to atenolol. Vitals are stable with pulse ranging from 68-90. Patient is saturating well on 98% on 2 L. There was a concern this morning that patient was not able to tolerate feeding and the rate of tube feeding was decreased. Family was told if patient's mental status continues to do tolerate will consider hospice or comfort care 02/17: Patient's blood pressure was high this morning and atenolol increased to 50 mg at bedtime per family wishes and continue on the Catapres patch at 0.1 mg. We are anticipating discharge to [facility] tomorrow. Patient continues to be mostly unresponsive but awake. All questions of the patient's son and are answered at the bedside. Sodium is high today and free water flushes will be doubled to 60 ML's every 4 hours. 02/18: Blood pressure is running high today for which Catapres will be increased to 2 mg. Patient will not be discharged on a statin as patient son has refused to give this to her. Pulse ox is 93% on 2 L, patient has been afebrile. She remains in A. fib. White count is at 12.8, sodium slightly improved 215, creatinine 0.97, blood sugars are running in the 200s sliding scale will be added for the senior care. Patient will be discharged to [facility] today in stable condition. Discharge diagnoses: 1. 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 2. Chronic atrial fibrillation. 3. Aspiration pneumonia suspected 3. History of CAD status post PCI back in 1982 4. Hypertension emergency and hypertensive cardiovascular disease. 5. History of CVA in 2010. 6. Gout, chronic. 7. Vascular dementia. 8. Severe aortic valve stenosis with severe pulmonary hypertension. 9. Hypothyroidism. 10. 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 Discharge plan: Subacute rehab at [facility] on Saturday. Impression and plan of care have been directed as dictated by the signing physician. Deanna Kauffman nurse practitioner acting as scribe for signing physician. Patient Condition at Discharge: Stable Plan - Discharge Summary Discharge Rx Participant: Yes New Discharge Prescriptions: New amLODIPine [Norvasc] 5 mg PEG/G-TUBE DAILY tab Apixaban [Eliquis] 5 mg PEG/G-TUBE BID #0 tab Atenolol [Tenormin] 50 mg PEG/G-TUBE HS tab cloNIDine 0.2 MG/24HR PATCH [Catapres-TTS] 1 patch TRANSDERM Q7D #0 patch Famotidine [Pepcid] 20 mg PEG/G-TUBE DAILY tab Lactulose [Cephulac] 20 gm PEG/G-TUBE BID PRN ml PRN Reason: Constipation Lisinopril [Zestril] 2.5 mg PEG/G-TUBE BID tab QUEtiapine [SEROquel] 50 mg PEG/G-TUBE HS tab metroNIDAZOLE [Flagyl] 500 mg PO Q8HR #12 tab Insulin Aspart [NovoLOG (formulary)] 0 unit SQ Q6H vial Continue Levothyroxine Sodium [Synthroid] 100 mcg PO DAILY Allopurinol [Zyloprim] 300 mg PO DAILY Cholecalciferol (Vitamin D3) [Vitamin D3] 2,000 unit PO DAILY Discontinued QUEtiapine [SEROquel] 100 mg PO 2100 Warfarin [Coumadin] 1 mg PO Q48H Warfarin [Coumadin] 2 mg PO Q48H Atenolol [Tenormin] 50 mg PO HS Discharge Medication List Allopurinol [Zyloprim] 300 mg PO DAILY 01/26/14 [History] Levothyroxine Sodium [Synthroid] 100 mcg PO DAILY 01/26/14 [History] Cholecalciferol (Vitamin D3) [Vitamin D3] 2,000 unit PO DAILY 11/30/16 [History] Apixaban [Eliquis] 5 mg PEG/G-TUBE BID #0 tab 02/18/18 [Rx] Atenolol [Tenormin] 50 mg PEG/G-TUBE HS tab 02/18/18 [Rx] Famotidine [Pepcid] 20 mg PEG/G-TUBE DAILY tab 02/18/18 [Rx] Insulin Aspart [NovoLOG (formulary)] 0 unit SQ Q6H vial 02/18/18 [Rx] Lactulose [Cephulac] 20 gm PEG/G-TUBE BID PRN ml 02/18/18 [Rx] Lisinopril [Zestril] 2.5 mg PEG/G-TUBE BID tab 02/18/18 [Rx] QUEtiapine [SEROquel] 50 mg PEG/G-TUBE HS tab 02/18/18 [Rx] amLODIPine [Norvasc] 5 mg PEG/G-TUBE DAILY tab 02/18/18 [Rx] cloNIDine 0.2 MG/24HR PATCH [Catapres-TTS] 1 patch TRANSDERM Q7D #0 patch [Rx] metroNIDAZOLE [Flagyl] 500 mg PO Q8HR #12 tab 02/18/18 [Rx] Follow up Appointment(s)/Referral(s): Kellen Euceda MD [STAFF PHYSICIAN] - 1 Week Mikey Ferreira DO [Primary Care Provider] - 1-2 days Patient Instructions/Handouts: Stroke (DC), Effects of a Stroke (DC) Activity/Diet/Wound Care/Special Instructions: Lindsey on D/C Discharge Disposition: TRANSFER TO SNF/ECF
[2018-02-18 08:03] LABS: Anisocytosis Slight; Basophils # (A) 0.1 k/uL (0-0.2); Basophils % (A) 1 %; Eosinophils # (A) 0.7 k/uL (0-0.7); Eosinophils % (A) 6 %; HCT 37.7 % (34.0-46.0); HGB 11.1 gm/dL (11.4-16.0); Hypochromasia Marked; Lymphocytes # (A) 1.5 k/uL (1.0-4.8); Lymphocytes % (A) 12 %; MCH 30.3 pg (25.0-35.0); MCHC 29.5 g/dL (31.0-37.0); MCV 102.9 fL (80.0-100.0); Macrocytosis Moderate; Mean Platelet Volume 8.9; Monocytes # (A) 0.6 k/uL (0-1.0); Monocytes % (A) 4 %; Neutrophils # (A) 9.8 k/uL (1.3-7.7); Neutrophils % (A) 77 %; Platelet Count 227 k/uL (150-450); RBC 3.66 m/uL (3.80-5.40); RDW 16.1 % (11.5-15.5); WBC 12.8 k/uL (3.8-10.6)
[2018-02-18 08:10] LABS: Albumin 2.7 g/dL (3.5-5.0); Calcium 9.5 mg/dL (8.4-10.2); Potassium 3.9 mmol/L (3.5-5.1); Total Bilirubin 1.4 mg/dL (0.2-1.3); Total Protein 5.7 g/dL (6.3-8.2)
[2018-02-18] MEDS: ALLOPURINOL 300 MG TAB PO SCH (10:15)
[2018-02-18] MEDS: amLODIPine 5 MG TAB PEG/G-TUBE SCH (10:15)
[2018-02-18] MEDS: APIXABAN 5 MG TAB PEG/G-TUBE SCH (10:16)
[2018-02-18] MEDS: FAMOTIDINE 20 MG/2 ML VIAL IV SCH (10:17)
[2018-02-18] MEDS: CHOLECALCIFEROL 1,000 UNIT TAB PEG/G-TUBE SCH (10:17)
[2018-02-18] MEDS: LISINOPRIL 2.5 MG TAB PEG/G-TUBE SCH (10:17)
[2018-02-18] MEDS: LACTULOSE 20 GM/30 ML CUP PEG/G-TUBE SCH (11:04)
[2018-02-18 11:36] LABS: Glucose,Whole Blood 251 mg/dL (75-99)
[2018-02-18 12:00] VITALS: BP 185/89; PULSE 84; RESP 22; TEMP 97.7
[2018-02-18] MEDS ORDERED: cloNIDine 0.2 MG/24HR PATCH TRANSDERM SCH (15:00)
[2018-02-18] MEDS: LEVOTHYROXINE IVP 100 MCG/5 ML VIAL IV SCH (16:21)
[2018-02-18 17:21] LABS: Glucose,Whole Blood 239 mg/dL (75-99)
[2018-02-19] MEDS ORDERED: FAMOTIDINE 20 MG TAB PEG/G-TUBE SCH (09:00)
== END 2018-02-18 18:50 | DRG 64 ==
LOC: EC 12:15 → 3SCARD 14:17 → 3NMEDONC 02-12 14:28
PROVIDERS: ADMIT Internal Medicine; ATTEND Internal Medicine
PROC: 0DH63UZ Insertion of Feeding Device into Stomach, Percutaneous Approach (ICD-10-PCS; principal; 2018-02-12 12:00)
PROC: 3E0G76Z Introduction of Nutritional Substance into Upper GI, Via Natural or Artificial Opening (ICD-10-PCS; principal; 2018-02-12 12:00)
DX: I63.511 Cerebral infarction due to unspecified occlusion or stenosis of right middle cerebral artery (principal); R40.2343 Coma scale, best motor response, flexion withdrawal, at hospital admission; G93.41 Metabolic encephalopathy; J69.0 Pneumonitis due to inhalation of food and vomit; G81.94 Hemiplegia, unspecified affecting left nondominant side; I16.1 Hypertensive emergency; R17 Unspecified jaundice; R13.10 Dysphagia, unspecified; I48.2 Chronic atrial fibrillation; I27.20 Pulmonary hypertension, unspecified; E86.0 Dehydration; I11.0 Hypertensive heart disease with heart failure; I50.9 Heart failure, unspecified; Z66 Do not resuscitate; I69.320 Aphasia following cerebral infarction; R40.2143 Coma scale, eyes open, spontaneous, at hospital admission; R29.810 Facial weakness; R40.2233 Coma scale, best verbal response, inappropriate words, at hospital admission; R47.02 Dysphasia; R29.716 NIHSS score 16; I35.0 Nonrheumatic aortic (valve) stenosis; F01.50 Vascular dementia, unspecified severity, without behavioral disturbance, psychotic disturbance, mood disturbance, and anxiety; E87.6 Hypokalemia; K22.8 Other specified diseases of esophagus; K44.9 Diaphragmatic hernia without obstruction or gangrene; G31.9 Degenerative disease of nervous system, unspecified; E89.0 Postprocedural hypothyroidism; I25.10 Atherosclerotic heart disease of native coronary artery without angina pectoris; M1A.9XX0 Chronic gout, unspecified, without tophus (tophi); F32.9 Major depressive disorder, single episode, unspecified; M19.90 Unspecified osteoarthritis, unspecified site; E66.9 Obesity, unspecified; H35.30 Unspecified macular degeneration; E78.5 Hyperlipidemia, unspecified; G47.00 Insomnia, unspecified; H40.9 Unspecified glaucoma; Z68.28 Body mass index [BMI] 28.0-28.9, adult; Z71.3 Dietary counseling and surveillance; Z72.820 Sleep deprivation; Z79.01 Long term (current) use of anticoagulants; Z79.890 Hormone replacement therapy; Z79.899 Other long term (current) drug therapy; Z88.2 Allergy status to sulfonamides; Z99.3 Dependence on wheelchair; Z85.828 Personal history of other malignant neoplasm of skin; Z96.652 Presence of left artificial knee joint; Z95.5 Presence of coronary angioplasty implant and graft; Z90.49 Acquired absence of other specified parts of digestive tract; Z96.641 Presence of right artificial hip joint; Z87.820 Personal history of traumatic brain injury; Z82.49 Family history of ischemic heart disease and other diseases of the circulatory system; Z82.5 Family history of asthma and other chronic lower respiratory diseases; Z83.79 Family history of other diseases of the digestive system; Z81.2 Family history of tobacco abuse and dependence
CPT/HCPCS: 36415; 43246; 70450; 70544; 70547; 70551; 71045; 71046; 80048; 80053; 80061; 81001; 82550; 82553; 83036; 83090; 84484; 85025; 85027; 85610; 85730; 87086; 87324; 93005; 95816; 96361; 96374; 99285

== ENCOUNTER 2018-02-21 01:25 | Observation (INO) | payer MEDICARE, BC ==
--- NOTE | 2018-02-21 02:09 | ED ---
Recheck HPI - General Chief Complaint: Recheck/Abnormal Lab/Rx Stated Complaint: PEG TUBE ISSUE Time Seen by Provider: 02/21/18 01:32 Source: EMS Mode of arrival: EMS Limitations: altered mental status, physical limitation - History of Present Illness Initial Comments: Margaret is an 82-year-old female with extensive past medical history is brought to ED today via EMS after apparently pulling her PEG tube approximately 3 hours prior to arrival. Patient is nonverbal, offers no history. - Related Data Home Medications Medication Instructions Recorded Confirmed Allopurinol [Zyloprim] 300 mg PO DAILY 01/26/14 02/08/18 Levothyroxine Sodium [Synthroid] 100 mcg PO DAILY 01/26/14 02/08/18 Cholecalciferol (Vitamin D3) 2,000 unit PO DAILY 11/30/16 02/08/18 [Vitamin D3] Previous Rx's Medication Instructions Recorded Apixaban [Eliquis] 5 mg PEG/G-TUBE BID #0 tab 02/18/18 Atenolol [Tenormin] 50 mg PEG/G-TUBE HS tab 02/18/18 Famotidine [Pepcid] 20 mg PEG/G-TUBE DAILY tab 02/18/18 Insulin Aspart [NovoLOG 0 unit SQ Q6H vial 02/18/18 (formulary)] Lactulose [Cephulac] 20 gm PEG/G-TUBE BID PRN ml 02/18/18 Lisinopril [Zestril] 2.5 mg PEG/G-TUBE BID tab 02/18/18 QUEtiapine [SEROquel] 50 mg PEG/G-TUBE HS tab 02/18/18 amLODIPine [Norvasc] 5 mg PEG/G-TUBE DAILY tab 02/18/18 cloNIDine 0.2 MG/24HR PATCH 1 patch TRANSDERM Q7D #0 patch 02/18/18 [Catapres-TTS] metroNIDAZOLE [Flagyl] 500 mg PO Q8HR #12 tab 02/18/18 Allergies Allergy/AdvReac Type Severity Reaction Status Date / Time Sulfa (Sulfonamide Allergy Unknown Verified 02/21/18 01:47 Antibiotics) Review of Systems ROS Statement: Those systems with pertinent positive or pertinent negative responses have been documented in the HPI. ROS Other: All systems not noted in ROS Statement are negative. Limitations: ROS unobtainable due to patients medical condition (nonverbal) Past Medical History Past Medical History: Atrial Fibrillation, Cancer, Chest Pain / Angina, CVA/TIA , Dementia, Eye Disorder, GI Bleed, Hyperlipidemia, Hypertension, Memory Impairment, Osteoarthritis (OA), Thyroid Disorder Additional Past Medical History / Comment(s): hx GI bleeding, vascular dementia , macular degeneration, gout, .head injury 2012, glaucoma, sinus problems, diverticulitis, wheelchair, skin cancer History of Any Multi-Drug Resistant Organisms: None Reported Past Surgical History: Adenoidectomy, Appendectomy, Breast Surgery, Cholecystectomy, Heart Catheterization With Stent, Joint Replacement, Tonsillectomy Additional Past Surgical History / Comment(s): rt cataract,, left total knee arthroplasty, cath with 2 stents , SINUS SX, thyroidectomy, surgery, lower GI bleed 08/2014-fistula, rt hip replacement, Past Anesthesia/Blood Transfusion Reactions: Previous Problems w/ Anesthesia, Motion Sickness Additional Past Anesthesia/Blood Transfusion Reaction / Comment(s): gets very aggitated, rage, angry-needed straight jackert per son, in past with anesthesia. was confused for long time after Date of Last Stent Placement:: unknown Past Psychological History: Depression Smoking Status: Never smoker Past Alcohol Use History: None Reported Past Drug Use History: None Reported - Past Family History Mother Family Medical History: Coronary Artery Disease (CAD) Additional Family Medical History / Comment(s): [employer] S[employer] Father Family Medical History: COPD, Coronary Artery Disease (CAD), Liver Disease Additional Family Medical History / Comment(s): LIFEL[employer] SMOK[employer] LIVED TO AGE 84 Sister(s) Family Medical History: Cancer Son(s) Family Medical History: No Reported History Daughter(s) Family Medical History: No Reported History General Exam - General Exam Comments Initial Comments: GENERAL: Medically ill-appearing, debilitated HENT: Normocephalic, Atraumatic. Chest membranes are dry, very poor oral care EYES: The sclera were anicteric and conjunctiva were pink and moist. Extraocular movements were intact and pupils were equal round and reactive to light. Eyelids were unremarkable. PULMONARY: Unlabored respirations. CARDIOVASCULAR: There is a regular rate and rhythm without any murmurs gallops or rubs. ABDOMEN: Soft, normal active bowel sounds Patient bruising on the inferior side of the abdomen consistent with recent hospitalization and heparin shots PEG tube has been pulled and there is no surrounding cellulitis or erythema, a patent PEG tube tract is visible SKIN: Skin is clear with no lesions or rashes and otherwise unremarkable. NEUROLOGIC: Nonverbal, does not follow commands MUSCULOSKELETAL: Moving extremities spontaneously LYMPHATICS: No significant lymphadenopathy is noted PSYCHIATRIC: Nonverbal Limitations: no limitations Limitations: altered mental status, physical limitation Course Vital Signs 02/21/18 01:34 Temperature 98.4 F Pulse Rate 63 Respiratory 12 Rate Blood Pressure 144/89 O2 Sat by Pulse 97 Oximetry Medical Decision Making - Medical Decision Making Patient was seen and evaluated immediately upon arrival, further history is limited however the patient pulled her PEG tube approximately 3 hours ago and there is a patent tract visible, 10 [place] Jalloh catheter was placed in the tract On further review it is apparent that this PEG tube was placed only 9 days ago X-ray did confirm that the PEG tube appears to be in place Patient care was discussed with Dr. deutsch was covering for Dr. Valle who placed the PEG tube, he agrees with the plan to leave the Jalloh catheter in place, placed the patient in observation for possible PEG tube replacement in the morning. He requests medicine be consulted for medical management of this patient. I placed admission orders. Disposition Clinical Impression: PEG tube malfunction Disposition: ADMITTED IP TO THIS [facility] Condition: Serious Referrals: Hussain Tolentino MD [Primary Care Provider] - 1-2 days
--- NOTE | 2018-02-21 02:49 | XR ---
EXAMINATION TYPE: XR abdomen 1V DATE OF EXAM: 02/21/2018 COMPARISON: NONE HISTORY: Check tube placement TECHNIQUE: 2 views FINDINGS: 30 mL of Isovue was injected into the gastrostomy tube. Contrast fills the stomach in the b humberto and fundus. There is no evidence of contrast extravasation. Bowel gas pattern is normal. There ar e clips from cholecystectomy. IMPRESSION: Gastrostomy tube appears in good position. No evidence of contrast extravasation.
[2018-02-21] MEDS ORDERED: NALOXONE 0.4 MG/ML 1 ML VIAL IV PRN (03:27)
[2018-02-21] MEDS: SODIUM CHLORIDE 0.9% 1,000 ML IV SCH ×2 (03:38→13:55)
[2018-02-21 03:57] LABS: Albumin 2.9 g/dL (3.5-5.0); Anisocytosis Slight; Basophils % (A) 0 %; Calcium 9.3 mg/dL (8.4-10.2); Eosinophils # (A) 0.5 k/uL (0-0.7); Eosinophils % (A) 4 %; HCT 38.4 % (34.0-46.0); HGB 11.9 gm/dL (11.4-16.0); Hypochromasia Slight; Lymphocytes # (A) 1.4 k/uL (1.0-4.8); Lymphocytes % (A) 10 %; MCHC 31.1 g/dL (31.0-37.0); MCV 99.6 fL (80.0-100.0); Macrocytosis Slight; Mean Platelet Volume 8.2; Monocytes # (A) 0.7 k/uL (0-1.0); Monocytes % (A) 5 %; Neutrophils # (A) 10.6 k/uL (1.3-7.7); Neutrophils % (A) 80 %; Platelet Count 184 k/uL (150-450); RBC 3.86 m/uL (3.80-5.40); RDW 16.2 % (11.5-15.5); Total Bilirubin 1.3 mg/dL (0.2-1.3); WBC 13.3 k/uL (3.8-10.6)
[2018-02-21 04:02] LABS: Potassium 4.8 mmol/L (3.5-5.1)
[2018-02-21] MEDS ORDERED: ENTERAL NUTRITION FORMULA PEG/G-TUBE SCH (10:45)
[2018-02-21] MEDS: ACETAMINOPHEN ORAL SUSP (PEDS) 3,840 MG/120 ML BOTTLE PEG/G-TUBE SCH ×2 (12:16→17:29)
[2018-02-21 13:06] VITALS: BMI 40.3
[2018-02-21 13:48] VITALS: RESP 20
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
[2018-02-21] MEDS ORDERED: IV FLUID CONTINUATION 1,000 ML IV ONE (14:30)
[2018-02-21] MEDS ORDERED: LIDOCAINE 1% INJ 10MG/ML (20 ML MDV) ONE (14:30)
[2018-02-21] MEDS ORDERED: PROPOFOL 10 MG/ML 20 ML VIAL IV ONE (14:30)
--- NOTE | 2018-02-21 14:48 | P.OP ---
Date of Procedure: 02/21/18 Preoperative Diagnosis: PEG tube malfunction, CVA, dysphagia Postoperative Diagnosis: Same Procedure(s) Performed: Esophagogastroscopy with replacement of PEG tube Anesthesia: MAC Surgeon: Elyse Valle Pathology: none sent Condition: stable Disposition: floor Indications for Procedure: The patient has a history of CVA with PEG tube placement. Her PEG tube was pulled out last night so she came into the emergency department and presents for replacement Description of Procedure: Patient's taken the endoscopy suite where she is given IV sedation. Gastroscope is passed per mouth into the stomach. She has some mild gastritis. The site of the previous PEG tube was identified. The abdominal wall was prepped with ChloraPrep. Introducer sheath was then placed through the existing PEG tube opening into the stomach. A guidewire is passed. The guidewires and grasped with a polypectomy snare and the scope and snare brought out per mouth. A Ponsky pull PEG tube is placed over the guidewire and then the PEG tube is advanced through the gastric and stomach wall. It is trimmed to size and attached to the appropriate adapters. A dressing is applied. She tolerated the procedure without difficulty and was taken recovery room in satisfactory condition. She stable for discharge. Plan - Discharge Summary Discharge Rx Participant: No New Discharge Prescriptions: No Action Levothyroxine Sodium [Synthroid] 100 mcg PEG/G-TUBE DAILY Allopurinol [Zyloprim] 300 mg PEG/G-TUBE DAILY Cholecalciferol (Vitamin D3) [Vitamin D3] 2,000 unit PO DAILY amLODIPine [Norvasc] 5 mg PEG/G-TUBE DAILY tab Apixaban [Eliquis] 5 mg PEG/G-TUBE BID #0 tab Atenolol [Tenormin] 50 mg PEG/G-TUBE HS tab Famotidine [Pepcid] 20 mg PEG/G-TUBE DAILY tab Lisinopril [Zestril] 2.5 mg PEG/G-TUBE BID tab Jevity 1.5 Bg Liquid 85 ml PEG/G-TUBE DIRECTED metroNIDAZOLE [Flagyl] 500 mg PO TID@0600,1300,2100 Lactulose [Cephulac] 20 gm PEG/G-TUBE BID QUEtiapine [SEROquel] 50 mg PEG/G-TUBE HS@2000 cloNIDine 0.2 MG/24HR PATCH [Catapres-TTS] 1 patch TRANSDERM WE Acetaminophen [Children's Tylenol] 640 mg PEG/G-TUBE QID@,,, Discharge Medication List Allopurinol [Zyloprim] 300 mg PEG/G-TUBE DAILY 01/26/14 [History] Levothyroxine Sodium [Synthroid] 100 mcg PEG/G-TUBE DAILY 01/26/14 [History] Cholecalciferol (Vitamin D3) [Vitamin D3] 2,000 unit PO DAILY 11/30/16 [History] Apixaban [Eliquis] 5 mg PEG/G-TUBE BID #0 tab 02/18/18 [Rx] Atenolol [Tenormin] 50 mg PEG/G-TUBE HS tab 02/18/18 [Rx] Famotidine [Pepcid] 20 mg PEG/G-TUBE DAILY tab 02/18/18 [Rx] Lisinopril [Zestril] 2.5 mg PEG/G-TUBE BID tab 02/18/18 [Rx] amLODIPine [Norvasc] 5 mg PEG/G-TUBE DAILY tab 02/18/18 [Rx] Acetaminophen [Children's Tylenol] 640 mg PEG/G-TUBE QID@,,,02/21/18 [ History] Jevity 1.5 Bg Liquid 85 ml PEG/G-TUBE DIRECTED 02/21/18 [History] Lactulose [Cephulac] 20 gm PEG/G-TUBE BID 02/21/18 [History] QUEtiapine [SEROquel] 50 mg PEG/G-TUBE HS@199902/21/18 [History] cloNIDine 0.2 MG/24HR PATCH [Catapres-TTS] 1 patch TRANSDERM WE 02/21/18 [ History] metroNIDAZOLE [Flagyl] 500 mg PO TID@0600,1300,2100 02/21/18 [History] Follow up Appointment(s)/Referral(s): Hussain Tolentino MD [Primary Care Provider] - (As needed) Activity/Diet/Wound Care/Special Instructions: Okay to resume PEG tube feedings at previous rate Discharge Disposition: DC/TRNS INTERMEDIATE CARE FAC
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
[2018-02-21 16:11] VITALS: BP 167/99; PULSE 74; TEMP 97.8
[2018-02-21] MEDS ORDERED: QUEtiapine 50 MG TAB PEG/G-TUBE SCH (20:00)
[2018-02-21] MEDS ORDERED: LACTULOSE 20 GM/30 ML CUP PEG/G-TUBE SCH (21:00)
[2018-02-21] MEDS ORDERED: ATENOLOL 50 MG TAB PEG/G-TUBE SCH (21:00)
[2018-02-21] MEDS ORDERED: APIXABAN 5 MG TAB PEG/G-TUBE SCH (21:00)
[2018-02-22] MEDS ORDERED: LEVOTHYROXINE 100 MCG TAB PEG/G-TUBE SCH (06:30)
[2018-02-22] MEDS ORDERED: ALLOPURINOL 300 MG TAB PO SCH (09:00)
[2018-02-22] MEDS ORDERED: FAMOTIDINE 20 MG TAB PEG/G-TUBE SCH (09:00)
[2018-02-22] MEDS ORDERED: amLODIPine 5 MG TAB PEG/G-TUBE SCH (09:00)
[2018-02-26] MEDS ORDERED: cloNIDine 0.2 MG/24HR PATCH TRANSDERM SCH (09:00)
== END 2018-02-21 17:54 ==
LOC: EC 01:25 → 4SSUR 03:27 → 4MS4W 12:15
PROVIDERS: ADMIT Student in an Organized Health Care Education/Training Program; ATTEND Student in an Organized Health Care Education/Training Program
DX: K94.23 Gastrostomy malfunction (principal); I69.391 Dysphagia following cerebral infarction; I69.354 Hemiplegia and hemiparesis following cerebral infarction affecting left non-dominant side; K29.70 Gastritis, unspecified, without bleeding; I69.392 Facial weakness following cerebral infarction; F01.50 Vascular dementia, unspecified severity, without behavioral disturbance, psychotic disturbance, mood disturbance, and anxiety; D72.829 Elevated white blood cell count, unspecified; I16.1 Hypertensive emergency; I11.9 Hypertensive heart disease without heart failure; I48.2 Chronic atrial fibrillation; M1A.9XX0 Chronic gout, unspecified, without tophus (tophi); G93.41 Metabolic encephalopathy; I35.0 Nonrheumatic aortic (valve) stenosis; I27.20 Pulmonary hypertension, unspecified; F32.9 Major depressive disorder, single episode, unspecified; E89.0 Postprocedural hypothyroidism; M19.90 Unspecified osteoarthritis, unspecified site; K57.90 Diverticulosis of intestine, part unspecified, without perforation or abscess without bleeding; E78.5 Hyperlipidemia, unspecified; H40.9 Unspecified glaucoma; H35.30 Unspecified macular degeneration; Z79.01 Long term (current) use of anticoagulants; Z79.890 Hormone replacement therapy; Z79.4 Long term (current) use of insulin; Z79.899 Other long term (current) drug therapy; Z88.2 Allergy status to sulfonamides; Z87.19 Personal history of other diseases of the digestive system; Z90.49 Acquired absence of other specified parts of digestive tract; Z95.5 Presence of coronary angioplasty implant and graft; Z96.652 Presence of left artificial knee joint; Z96.641 Presence of right artificial hip joint; Z85.828 Personal history of other malignant neoplasm of skin; Z82.5 Family history of asthma and other chronic lower respiratory diseases; Z82.49 Family history of ischemic heart disease and other diseases of the circulatory system; Z83.79 Family history of other diseases of the digestive system; Z81.2 Family history of tobacco abuse and dependence; Z80.9 Family history of malignant neoplasm, unspecified
CPT/HCPCS: 99285; 36415; 80053; 85025; 74018; 43246; G0378; J2001; J2704; Q9967; B4087